=== PATIENT | female | born 1955 | race Caucasian/White ===

== ENCOUNTER 2018-06-15 22:00 | Inpatient (IN) | payer MEDICARE, MEDICAID ==
[~2018-06-15] VITALS: Ht 170.2 cm; Wt 70.5 kg
[~2018-06-15 22:00] MED LIST: ALBU8.5H8 IH; BACL10TA2 PO; CELE-85 PO; CLON0.1T20 PO; ESOM40CA PO; ROPI0.5T2 PO; temazepam 15mg capsule PO PRN
[2018-06-15] MEDS ORDERED: ipratropium 0.5 MG/2.5ML nebule IH ONE (22:05)
[2018-06-15] MEDS ORDERED: albuterol 2.5 MG/3 ML nebule CONTNEB PRN (22:05)
[2018-06-15] MEDS ORDERED: methylPREDNISolone sod succ 125mg/2ml vial IV ONE (22:05)
[2018-06-15] MEDS ORDERED: albuterol 2.5 MG/3 ML nebule ONE (22:07)
[2018-06-15 22:50] LABS: BASOPHILS % (AUTO) 0.3 % (0-1); EOSINOPHILS # (AUTO) 0.4 X10'3 (0-0.9); EOSINOPHILS % (AUTO) 3.6 % (0-6); HEMATOCRIT 46.7 % (35.0-45.0); HEMOGLOBIN 15.8 g/dl (12.0-16.0); LYMPHOCYTES # (AUTO) 2.8 X10'3 (1.1-4.8); LYMPHOCYTES % (AUTO) 24.8 % (21-51); MEAN CORPUSCULAR HEMOGLOBIN 29.2 PG (27.0-31.0); MEAN CORPUSCULAR HGB CONC 33.7 % (33.0-36.5); MEAN CORPUSCULAR VOLUME 86.6 FL (78-98); MEAN PLATELET VOLUME 9.6 FL (7.4-10.4); MONOCYTES # (AUTO) 0.6 X10'3 (0-0.9); MONOCYTES % (AUTO) 5.3 % (2-12); NEUTROPHILS # (AUTO) 7.4 X10'3 (1.8-7.7); PLATELET COUNT 280 X10'3 (140-440); RED BLOOD COUNT 5.39 X10'6 (4.20-5.60); RED CELL DISTRIBUTION WIDTH 13.8 % (11.5-14.5); WHITE BLOOD COUNT 11.3 X10'3 (4.5-11.0)
[2018-06-15 23:00] LABS: ALANINE AMINOTRANSFERASE 24 U/L (12-78); ALBUMIN 3.6 G/DL (3.4-5.0); ALBUMIN/GLOBULIN RATIO 1.1 (1.1-1.5); ALKALINE PHOSPHATASE 105 IU/L (46-116); ANION GAP 8 (8-16); ASPARTATE AMINO TRANSFERASE 20 U/L (10-37); BILIRUBIN,TOTAL 0.3 MG/DL (0.1-1.0); BLOOD UREA NITROGEN 14 MG/DL (7-18); BUN/CREATININE RATIO 16.7 (6.6-38.0); CALCIUM 9.8 MG/DL (8.5-10.1); CHLORIDE 107 MMOL/L (99-107); CREATININE 0.84 MG/DL (0.40-0.90); GLUCOSE 155 MG/DL (70-104); POTASSIUM 3.9 MMOL/L (3.5-5.1); SODIUM 143 MMOL/L (135-145); TOTAL CARBON DIOXIDE 27.7 MMOL/L (24-32); eGFR 68 ML/MIN
[2018-06-15 23:04] LABS: PARTIAL THROMBOPLASTIN TIME 32 SECONDS (22-32); PROTHROMBIN TIME 10.4 SECONDS (9.0-12.0)
[2018-06-15] MEDS ORDERED: aspirin 81mg tab.chew PO ONE (23:15)
[2018-06-15] MEDS ORDERED: normal saline 1000ml 1,000 ML IV SCH (23:27)
[2018-06-15] MEDS ORDERED: ondansetron/PF 4mg/2ml inj IV PRN (23:30)
[2018-06-15] MEDS ORDERED: mag hydrox/Alum hydrox/simeth 30ml oral suspension PO PRN (23:30)
[2018-06-15] MEDS ORDERED: morphine 2 MG/ML inj. syringe IV PRN ×2 (23:30)
[2018-06-15] MEDS ORDERED: diphenhydrAMINE 25mg capsule PO PRN (23:30)
[2018-06-15] MEDS ORDERED: magnesium hydroxide 30ml (MOM) UD suspension PO PRN (23:30)
[2018-06-15] MEDS ORDERED: acetaminophen 325mg tablet PO PRN ×2 (23:30)
[2018-06-15] MEDS ORDERED: bisacodyl 10mg suppository rectal RC PRN (23:30)
[2018-06-15] MEDS ORDERED: metoclopramide 5 mg/ml inj IV PRN (23:30)
[2018-06-15] MEDS ORDERED: diphenhydrAMINE 50 mg/ml inj IV PRN (23:30)
[2018-06-15] MEDS ORDERED: acetaminophen 650mg rectal suppository RC PRN (23:30)
[2018-06-15] MEDS ORDERED: hydrALAZINE 20mg/ml inj. IV PRN (23:35)
[2018-06-15 23:55] LABS: HEMOGLOBIN A1C 5.8 % (4.5-6.2)
[2018-06-15 23:57] LABS: D-DIMER 0.24 MG/L FEU (0-0.50)
[2018-06-16 00:01] LABS: MAGNESIUM 1.9 MG/DL (1.5-2.4); PHOSPHORUS 3.7 MG/DL (2.3-4.5)
[2018-06-16 00:31] LABS: ABG BASE EXCESS -1.4 mmol/L (-2.0-3.0); ABG HCO3 23.7 mmol/L (22.0-26.0); ABG OXYGEN SATURATION 96.4 % (95-98); ABG PCO2 (T) 41.4 mmHg (32.0-45.0); ABG PH (T) 7.376 (7.350-7.450); ABG PO2 (T) 87.6 mmHg (83-108); ALLEN'S TEST Positive; FCOHb 0.6 % (0.5-1.5); FLOW 2 L/min; FMetHb 0.2 % (0.3-1.12); FO2Hb 95.6 % (94-100); RESPIRATORY RATE (OBSERVED) 18 b/min; TOTAL HEMOGLOBIN 15.5 G/dl (12.0-16.0)
[2018-06-16 02:00] LABS: URINE AMPHETAMINE SCREEN POSITIVE (Neg); URINE BARBITUATE SCREEN NEGATIVE (Neg); URINE BENZODIAZEPINES SCREEN NEGATIVE (Neg); URINE CANNABINOID SCREEN NEGATIVE (Neg); URINE COCAINE SCREEN NEGATIVE (Neg); URINE METHADONE SCREEN NEGATIVE (Neg); URINE OPIATE SCREEN NEGATIVE (Neg); URINE PHENCYCLIDINE SCREEN NEGATIVE (Neg)
[2018-06-16] MEDS ORDERED: azithromycin/NS 500mg/250ml 250 ML IV SCH (02:00)
[2018-06-16] MEDS ORDERED: enoxaparin 30mg/0.3ml syringe SUBCUT SCH ×3 (02:00→14:00)
[2018-06-16] MEDS ORDERED: enoxaparin 100mg/ml syringe SQ SCH (02:00)
[2018-06-16] MEDS ORDERED: enoxaparin 40mg/0.4ml syringe SQ SCH (02:00)
[2018-06-16 02:02] LABS: CLARITY,URINE CLEAR (Clear); COLOR,URINE YELLOW (Yellow); GLUCOSE, URINE 250 mg/dl (Neg); KETONES,URINE NEGATIVE (Neg); LEUKOCYTE ESTERASE ,URINE NEGATIVE (Neg); NITRITES, URINE NEGATIVE (Neg); OCCULT BLOOD,URINE TRACE-INTACT (Neg); PH,URINE 5.5 (4.8-8.0); PROTEIN,URINE NEGATIVE (Neg); UROBILINOGEN,URINE 0.2 E.U/dL (0.2-1.0)
[2018-06-16 02:07] LABS: UA COLLECTION TYPE CLN CATCH MIDSTREAM
[2018-06-16 02:11] LABS: RBC,URINE 0-2 /HPF (0-2); WBC,URINE 0-4 /HPF (0-4)
[2018-06-16 02:12] LABS: BACTERIA,URINE FEW /HPF (Neg); CAL OXALATE CRYSTALS 4+ /HPF (NEGATIVE); MUCUS STRANDS FEW /LPF (Neg); SQUAMOUS EPITHELIAL CELL,UR MODERATE /LPF (FEW)
[2018-06-16] MEDS: nicotine 21mg patch - 24 hr TD SCH ×2 (02:33→07:35)
[2018-06-16] MEDS: CefTRIAXone/D5W-Rocephin 1gm 50 ML IV SCH ×3 (02:34→23:28)
[2018-06-16] MEDS: HYDROcodone/acetaminophen 5mg/325mg tablet PO PRN ×2 (03:01→14:20)
[2018-06-16] MEDS ORDERED: albuterol 2.5 MG/3 ML nebule NEB PRN (03:35)
[2018-06-16] MEDS ORDERED: NO HOME MEDS (03:50)
[2018-06-16 03:53] VITALS: BP 141/87
[2018-06-16 06:00] VITALS: BP 168/88
[2018-06-16 06:34] LABS: BASOPHILS % (AUTO) 0.3 % (0-1); EOSINOPHILS # (AUTO) 0.1 X10'3 (0-0.9); HEMATOCRIT 42.3 % (35.0-45.0); HEMOGLOBIN 14.1 g/dl (12.0-16.0); LYMPHOCYTES # (AUTO) 0.7 X10'3 (1.1-4.8); LYMPHOCYTES % (AUTO) 9.8 % (21-51); MEAN CORPUSCULAR HEMOGLOBIN 29.4 PG (27.0-31.0); MEAN CORPUSCULAR HGB CONC 33.4 % (33.0-36.5); MEAN CORPUSCULAR VOLUME 87.8 FL (78-98); MEAN PLATELET VOLUME 10.1 FL (7.4-10.4); MONOCYTES % (AUTO) 0.5 % (2-12); NEUTROPHILS # (AUTO) 6.6 X10'3 (1.8-7.7); NEUTROPHILS % (AUTO) 88.4 % (42-75); PLATELET COUNT 229 X10'3 (140-440); RED BLOOD COUNT 4.82 X10'6 (4.20-5.60); RED CELL DISTRIBUTION WIDTH 13.5 % (11.5-14.5); WHITE BLOOD COUNT 7.4 X10'3 (4.5-11.0)
[2018-06-16 06:41] LABS: ALANINE AMINOTRANSFERASE 18 U/L (12-78); ALBUMIN 3.1 G/DL (3.4-5.0); ALBUMIN/GLOBULIN RATIO 0.9 (1.1-1.5); ALKALINE PHOSPHATASE 97 IU/L (46-116); ANION GAP 13 (8-16); ASPARTATE AMINO TRANSFERASE 20 U/L (10-37); BILIRUBIN,TOTAL 0.2 MG/DL (0.1-1.0); BLOOD UREA NITROGEN 12 MG/DL (7-18); BUN/CREATININE RATIO 14.1 (6.6-38.0); CALCIUM 8.9 MG/DL (8.5-10.1); CHLORIDE 105 MMOL/L (99-107); CREATININE 0.85 MG/DL (0.40-0.90); GLUCOSE 282 MG/DL (70-104); POTASSIUM 3.3 MMOL/L (3.5-5.1); SODIUM 138 MMOL/L (135-145); TOTAL CARBON DIOXIDE 19.7 MMOL/L (24-32); TOTAL PROTEIN 6.4 G/DL (6.4-8.2); eGFR 67 ML/MIN
[2018-06-16 06:44] LABS: CHOL/HDL RATIO 2.4 (0.00-4.99); CHOLESTEROL 138 MG/DL (0-200); HDL CHOLESTEROL 58 MG/DL (35-60); LDL CHOLESTEROL 73 MG/DL (50-100); TRIGLYCERIDES 37 MG/DL (20-135)
[2018-06-16] MEDS: atorvastatin 20mg tablet PO SCH (07:31)
[2018-06-16] MEDS: lisinopril 10 MG tablet PO SCH (07:35)
[2018-06-16] MEDS: pantoprazole 40mg Tablet.DR PO SCH (07:36)
[2018-06-16] MEDS: docusate sod 100mg capsule PO SCH ×2 (07:36→19:55)
[2018-06-16] MEDS ORDERED: nitroGLYCERIN 0.4mg/hour patch TD SCH (08:00)
[2018-06-16] MEDS ORDERED: aspirin 81mg tab.chew PO SCH (08:00)
[2018-06-16] MEDS ORDERED: metoprolol tartrate 25mg tablet PO SCH (08:00)
[2018-06-16] MEDS ORDERED: methylPREDNISolone sod succ 125mg/2ml vial IV SCH (08:00)
[2018-06-16 11:00] VITALS: BP 127/79
[2018-06-16] MEDS ORDERED: potassium cl 20mEq in 1/2 NS 1,000 ML IV SCH (11:30)
[2018-06-16] MEDS ORDERED: pneumococcal 23-VAL P-sac vacc 25 mcg/0.5ml vial IMVAC ONE (12:00)
[2018-06-16] MEDS ORDERED: potassium Cl 20 mEq SR tablet PO STA (14:01)
[2018-06-16] MEDS: ipratropium/albuterol 3ml nebule NEB SCH ×3 (14:21→23:08)
[2018-06-16 15:00] VITALS: BP 128/67
[2018-06-16] MEDS: methylPREDNISolone sod succ 125mg/2ml vial IV SCH ×2 (17:15→23:28)
[2018-06-16 18:00] VITALS: BP 116/65
[2018-06-16] MEDS: lactobacillus rhamnosus 10,000 MMU CELLS/CAPSULE PO SCH (19:05)
[2018-06-16] MEDS: metoprolol tartrate 25mg tablet PO SCH (19:11)
[2018-06-16] MEDS ORDERED: famotidine 20mg tablet PO SCH (21:00)
[2018-06-16 22:00] VITALS: BP 119/66
[2018-06-17 02:00] VITALS: BP 131/80
[2018-06-17] MEDS: ipratropium/albuterol 3ml nebule NEB SCH ×3 (03:27→11:51)
[2018-06-17 06:00] VITALS: BP 131/77
[2018-06-17 06:43] LABS: ALANINE AMINOTRANSFERASE 21 U/L (12-78); ALBUMIN 3.1 G/DL (3.4-5.0); ALKALINE PHOSPHATASE 73 IU/L (46-116); ANION GAP 9 (8-16); ASPARTATE AMINO TRANSFERASE 18 U/L (10-37); BILIRUBIN,TOTAL 0.2 MG/DL (0.1-1.0); BLOOD UREA NITROGEN 24 MG/DL (7-18); CALCIUM 9.5 MG/DL (8.5-10.1); CHLORIDE 107 MMOL/L (99-107); GLUCOSE 146 MG/DL (70-104); POTASSIUM 4.7 MMOL/L (3.5-5.1); SODIUM 140 MMOL/L (135-145); TOTAL CARBON DIOXIDE 23.8 MMOL/L (24-32); TOTAL PROTEIN 6.3 G/DL (6.4-8.2); eGFR 72 ML/MIN
[2018-06-17] MEDS: pantoprazole 40mg Tablet.DR PO SCH (07:30)
[2018-06-17] MEDS: methylPREDNISolone sod succ 125mg/2ml vial IV SCH (08:00)
[2018-06-17] MEDS ORDERED: enoxaparin 40mg/0.4ml syringe SQ SCH (08:00)
[2018-06-17] MEDS ORDERED: nicotine 14mg patch - 24hr TD SCH (08:00)
[2018-06-17] MEDS: metoprolol tartrate 25mg tablet PO SCH (09:50)
[2018-06-17] MEDS: atorvastatin 20mg tablet PO SCH (09:52)
[2018-06-17] MEDS: lisinopril 10 MG tablet PO SCH (09:52)
[2018-06-17] MEDS: docusate sod 100mg capsule PO SCH (09:52)
[2018-06-17] MEDS: lactobacillus rhamnosus 10,000 MMU CELLS/CAPSULE PO SCH (09:53)
[2018-06-17] MEDS: HYDROcodone/acetaminophen 5mg/325mg tablet PO PRN (09:59)
[2018-06-17 11:00] VITALS: BP 129/73
[2018-06-17] MEDS ORDERED: CEPH500C5 PO (11:40)
[2018-06-17] MEDS ORDERED: PRED10TA23 PO (11:40)
[2018-06-17] MEDS ORDERED: LISI10TA4 PO (11:40)
[2018-06-17] MEDS ORDERED: METO50TA16 PO (11:40)
[2018-06-17] MEDS: CefTRIAXone/D5W-Rocephin 1gm 50 ML IV SCH ×2 (12:00)
[2018-06-17 14:00] VITALS: BP 105/47
== END 2018-06-17 14:45 | disposition home or self-care (01) | DRG 280 ==
LOC: ER 22:00 → ED HOLD 23:27 → MERGE 23:27 → EDBEDREQ 06-16 03:08 → PCU 3S 06-16 04:12
PROVIDERS: ADMIT Family Medicine; ATTEND Internal Medicine
PROC: 3E0234Z Introduction of Serum, Toxoid and Vaccine into Muscle, Percutaneous Approach (ICD-10-PCS; principal; 2018-06-16)
DX: I21.A1 Myocardial infarction type 2 (principal); J96.91 Respiratory failure, unspecified with hypoxia; I16.1 Hypertensive emergency; J44.1 Chronic obstructive pulmonary disease with (acute) exacerbation; J44.0 Chronic obstructive pulmonary disease with (acute) lower respiratory infection; F15.10 Other stimulant abuse, uncomplicated; F17.210 Nicotine dependence, cigarettes, uncomplicated; I10 Essential (primary) hypertension; J20.9 Acute bronchitis, unspecified; K21.9 Gastro-esophageal reflux disease without esophagitis; F32.9 Major depressive disorder, single episode, unspecified; F41.9 Anxiety disorder, unspecified; Z90.710 Acquired absence of both cervix and uterus; Z23 Encounter for immunization; Z71.6 Tobacco abuse counseling; Z71.51 Drug abuse counseling and surveillance of drug abuser; Z79.899 Other long term (current) drug therapy
CPT/HCPCS: 36415; 36600; 71045; 80053; 80061; 80305; 81001; 82803; 83036; 83735; 83880; 84100; 84443; 84484; 85018; 85025; 85379; 85610; 85730; 87070; 90732; 93005; 93306; 94640; 94667; 94760; 96374; 99285; G0378; J0456; J0696; J1650; J2270; J2405; J2930; Q2037

== ENCOUNTER 2020-11-17 20:07 | Emergency (ER) | payer MEDICARE, MEDICAID ==
[~2020-11-17] VITALS: Ht 170.2 cm; Wt 70.5 kg
[~2020-11-17 20:07] MED LIST changes: -CLON0.1T20 PO; +LISI10TA27 PO; -ROPI0.5T2 PO; +ROPI0.5T4 PO; -temazepam 15mg capsule PO PRN
[2020-11-17 21:37] VITALS: BP 147/101
--- NOTE | 2020-11-17 21:41 | NUR ---
PT C/O DIFFICULTY BREATHING TO REGISTRATION. PT TAKEN INTO TRIAGE ROOM AND VS RECHECKED, SENT TO BED 19 FOR AN EKG. SPOKE WITH DR ROSE ABOUT PT, WILL ORDER ACS PROTOCOL
[2020-11-17 22:19] LABS: BASOPHILS % (AUTO) 0.5 % (0-1); EOSINOPHILS # (AUTO) 0.4 X10'3 (0-0.9); EOSINOPHILS % (AUTO) 4.3 % (0-6); HEMATOCRIT 45.7 % (35.0-45.0); HEMOGLOBIN 15.2 g/dl (12.0-16.0); LYMPHOCYTES # (AUTO) 3.3 X10'3 (1.1-4.8); LYMPHOCYTES % (AUTO) 34.1 % (21-51); MEAN CORPUSCULAR HEMOGLOBIN 29.3 PG (27.0-31.0); MEAN CORPUSCULAR HGB CONC 33.2 g/dL (33.0-36.5); MEAN CORPUSCULAR VOLUME 88.3 FL (78-98); MEAN PLATELET VOLUME 8.9 FL (7.4-10.4); MONOCYTES # (AUTO) 0.7 X10'3 (0-0.9); NEUTROPHILS # (AUTO) 5.2 X10'3 (1.8-7.7); NEUTROPHILS % (AUTO) 54.1 % (42-75); PLATELET COUNT 271 X10'3 (140-440); RED BLOOD COUNT 5.17 X10'6 (4.20-5.60); RED CELL DISTRIBUTION WIDTH 13.7 % (11.5-14.5); WHITE BLOOD COUNT 9.6 X10'3 (4.5-11.0)
[2020-11-17 22:53] LABS: ALANINE AMINOTRANSFERASE 26 U/L (12-78); ALBUMIN 3.7 G/DL (3.4-5.0); ALBUMIN/GLOBULIN RATIO 1.2 (1.1-1.5); ALKALINE PHOSPHATASE 92 IU/L (46-116); ANION GAP 11 (8-16); ASPARTATE AMINO TRANSFERASE 19 U/L (10-37); BILIRUBIN,TOTAL 0.3 MG/DL (0.1-1.0); BLOOD UREA NITROGEN 20 MG/DL (7-18); BUN/CREATININE RATIO 20.2 (6.6-38.0); CALCIUM 9.1 MG/DL (8.5-10.1); CHLORIDE 104 MMOL/L (99-107); CREATININE 0.99 MG/DL (0.40-0.90); GLUCOSE 114 MG/DL (70-104); SODIUM 144 MMOL/L (135-145); TOTAL CARBON DIOXIDE 29.2 MMOL/L (24-32); TOTAL PROTEIN 6.8 G/DL (6.4-8.2); eGFR 56 ML/MIN
== END 2020-11-17 23:27 | disposition left against medical advice (07) ==
LOC: ER 20:07
DX: R07.81 Pleurodynia (principal); Z53.21 Procedure and treatment not carried out due to patient leaving prior to being seen by health care provider
CPT/HCPCS: 36415; 71046; 80053; 83880; 84484; 85025; 93005

== ENCOUNTER 2021-05-14 14:35 | Emergency (ER) | payer MEDICARE, MEDICAID ==
[~2021-05-14] VITALS: Ht 170.2 cm; Wt 68.2 kg
[~2021-05-14 14:35] MED LIST changes: +ALBU8.5H17 IH; -ALBU8.5H8 IH
[2021-05-14 14:52] VITALS: BP 150/92
[2021-05-14] MEDS ORDERED: IBUP-1984 PO (16:55)
[2021-05-14] MEDS ORDERED: CYCL-1 PO (16:55)
== END 2021-05-14 17:03 | disposition home or self-care (01) ==
LOC: ER 14:36
DX: M54.6 Pain in thoracic spine (principal); M54.50 Low back pain, unspecified; Z72.89 Other problems related to lifestyle; Z79.899 Other long term (current) drug therapy; W19.XXXA Unspecified fall, initial encounter; Y93.89 Activity, other specified; Y92.89 Other specified places as the place of occurrence of the external cause; Y99.8 Other external cause status
CPT/HCPCS: 71046; 72100; 99284

== ENCOUNTER 2021-07-18 20:46 | Inpatient (IN) | payer MEDICARE, MEDICAID ==
[~2021-07-18] VITALS: Ht 170.2 cm; Wt 71.8 kg
[~2021-07-18 20:46] MED LIST changes: +CYCL-1 PO
[2021-07-18] MEDS ORDERED: dexamethasone sod phosphate 10mg/ml inj IV STA (20:58)
[2021-07-18] MEDS ORDERED: LORazepam 2 mg/ml vial IV ONE (21:00)
[2021-07-18] MEDS ORDERED: ipratropium/albuterol 3ml nebule NEB ONE (21:00)
[2021-07-18 21:24] LABS: BASOPHILS % (AUTO) 0.4 % (0-1); EOSINOPHILS # (AUTO) 0.2 X10'3 (0-0.9); EOSINOPHILS % (AUTO) 1.7 % (0-6); HEMATOCRIT 44.4 % (35.0-45.0); HEMOGLOBIN 15.2 g/dl (12.0-16.0); LYMPHOCYTES # (AUTO) 3.3 X10'3 (1.1-4.8); LYMPHOCYTES % (AUTO) 29.4 % (21-51); MEAN CORPUSCULAR HEMOGLOBIN 29.9 PG (27.0-31.0); MEAN CORPUSCULAR HGB CONC 34.3 g/dL (33.0-36.5); MEAN CORPUSCULAR VOLUME 87.4 FL (78-98); MEAN PLATELET VOLUME 9.2 FL (7.4-10.4); MONOCYTES # (AUTO) 1.1 X10'3 (0-0.9); MONOCYTES % (AUTO) 9.8 % (2-12); NEUTROPHILS # (AUTO) 6.5 X10'3 (1.8-7.7); NEUTROPHILS % (AUTO) 58.7 % (42-75); PLATELET COUNT 269 X10'3 (140-440); RED BLOOD COUNT 5.09 X10'6 (4.20-5.60); RED CELL DISTRIBUTION WIDTH 14.1 % (11.5-14.5); WHITE BLOOD COUNT 11.1 X10'3 (4.5-11.0)
[2021-07-18 21:31] LABS: D-DIMER 0.65 MG/L FEU (0-0.50); PARTIAL THROMBOPLASTIN TIME 34 SECONDS (22-32)
[2021-07-18 21:32] LABS: ABG BASE EXCESS -0.7 mmol/L (-2.0-2.0); ABG HCO3 24.3 mmol/L (22.0-26.0); ABG OXYGEN SATURATION 94.6 % (94-97); ABG PCO2 (T) 41.7 mmHg (32.0-45.0); ABG PO2 (T) 74.8 mmHg (75.0-100.0); FCOHb 1.6 % (0.0-3.9); FMetHb 0.1 % (0.0-1.5); PATIENT TEMPERATURE 37.2
[2021-07-18 21:33] LABS: ALANINE AMINOTRANSFERASE 25 U/L (12-78); ALBUMIN 3.6 G/DL (3.4-5.0); ALKALINE PHOSPHATASE 99 IU/L (46-116); ANION GAP 15 (8-16); ASPARTATE AMINO TRANSFERASE 21 U/L (10-37); BILIRUBIN,TOTAL 0.4 MG/DL (0.1-1.0); BLOOD UREA NITROGEN 16 MG/DL (7-18); BUN/CREATININE RATIO 14.7 (6.6-38.0); CALCIUM 8.9 MG/DL (8.5-10.1); CHLORIDE 103 MMOL/L (99-107); CREATININE 1.09 MG/DL (0.40-0.90); GLUCOSE 139 MG/DL (70-104); POTASSIUM 3.2 MMOL/L (3.5-5.1); SODIUM 142 MMOL/L (135-145); TOTAL CARBON DIOXIDE 23.8 MMOL/L (24-32); TOTAL PROTEIN 7.3 G/DL (6.4-8.2); eGFR 50 ML/MIN
[2021-07-18] MEDS ORDERED: CefTRIAXone 2gm/D5W 50ml BAG 50 ML IV ONE (21:40)
[2021-07-18] MEDS ORDERED: normal saline 1000ML IV soln IV ONE (21:55)
[2021-07-18] MEDS ORDERED: iohexol 350MG/ML 100ml bottle IV ONE (22:25)
[2021-07-19] MEDS ORDERED: ondansetron/PF 4mg/2ml inj IV PRN (00:10)
[2021-07-19] MEDS ORDERED: bisacodyl 10mg suppository rectal RC PRN (00:10)
[2021-07-19] MEDS ORDERED: acetaminophen 325mg tablet PO PRN ×2 (00:10)
[2021-07-19] MEDS ORDERED: magnesium Cl slow-release 64mg tablet PO PRN (00:10)
[2021-07-19] MEDS ORDERED: magnesium hydroxide 30ml (MOM) UD suspension PO PRN (00:10)
[2021-07-19] MEDS ORDERED: morphine 2 MG/ML inj. syringe IV PRN (00:10)
[2021-07-19] MEDS ORDERED: HYDROcodone/acetaminophen 5mg/325mg tablet PO PRN (00:10)
[2021-07-19] MEDS ORDERED: diphenhydrAMINE 50 mg/ml inj IV PRN (00:10)
[2021-07-19] MEDS ORDERED: magnesium 4gm in 100ml NS 100 ML IV PRN (00:10)
[2021-07-19] MEDS ORDERED: ondansetron 4mg rapidly disintigrating tab PO PRN (00:10)
[2021-07-19] MEDS ORDERED: normal saline 1000ml 1,000 ML IV SCH (00:10)
[2021-07-19] MEDS ORDERED: diphenhydrAMINE 25mg capsule PO PRN (00:10)
[2021-07-19] MEDS ORDERED: potassium Cl 20 mEq SR tablet PO PRN (00:10)
[2021-07-19] MEDS ORDERED: magnesium 2GM in 50ml NS 50 ML IV PRN (00:10)
[2021-07-19] MEDS ORDERED: mag hydrox/Alum hydrox/simeth 30ml oral suspension PO PRN (00:10)
[2021-07-19] MEDS ORDERED: ipratropium/albuterol 3ml nebule NEB PRN ×2 (00:20→13:50)
[2021-07-19] MEDS: temazepam 15mg capsule PO PRN ×2 (00:54→22:42)
--- NOTE | 2021-07-19 01:07 | NUR ---
SPOKE TO DR SOLIS CONCERNING PT'S TROPONIN LEVELS. NO NEW ORDERS AT PRESENT. PT HAS NO COMPLAINTS.
[2021-07-19 01:33] LABS: CREATINE KINASE 91 U/L (26-192); HEMOGLOBIN A1C 5.7 % (4.5-6.2); LIPASE 84 U/L (73-393); MAGNESIUM 1.8 MG/DL (1.5-2.4)
--- NOTE | 2021-07-19 02:12 | NUR ---
PT RIPPED HER IV OUT, TOOK HER NC OUT, AND UNHOOKED HERSELF FROM MONITOR TO WALK TO THE DOOR OF HER ROOM AND YELL AT STAFF THAT SHE WOULD LEAVE IF SHE DIDN'T GET A ROOM UPSTAIRS. SHE ALSO INFORMED STAFF THAT SHE "SHIT" ON HER BED. PT WAS WALKED BACK TO [facility]. I UPDATED HER ON HER STATUS. SHE WAS INFORMED THAT IT WAS WITHIN HER RIGHT TO LEAVE BUT THAT SHE WOULD HAVE TO SIGN OUT AMA. PT THEN DECIDED TO WAIT AND CONTINUE TO RECIEVE MEDICAL TREATMENT. TECH HELPED CLEAN PT, CHANGE HER INTO A CLEAN GOWN, AND CHANGE BED SHEETS.
[2021-07-19] MEDS: potassium Cl 20 mEq SR tablet PO PRN ×2 (02:35→04:00)
--- NOTE | 2021-07-19 06:23 | NUR ---
CALLED DR SOLIS CONCERNING PT'S NEW TROPONIN RESULTS. HE IS ALSO AWARE OF PT'S ANXIETY. HE GAVE A TELEPHONE ORDER FOR 0.5 MG ATIVAN. NO OTHER ORDERS RECIEVED. ORDERS REPEATED FOR ACCURACY.
[2021-07-19] MEDS ORDERED: LORazepam 2 mg/ml vial IM ONE (06:30)
--- NOTE | 2021-07-19 07:30 | NUR ---
several attempts for iv access with success. pt sleeping
[2021-07-19] MEDS: K and/or MAG REPLACEMENT MC SCH ×2 (08:00→19:31)
[2021-07-19] MEDS ORDERED: azithromycin/NS 500mg/250ml 250 ML IV SCH ×2 (08:00)
[2021-07-19] MEDS ORDERED: heparin, porcine 5000 units/ml vial SQ SCH (08:00)
[2021-07-19] MEDS ORDERED: methylPREDNISolone sod succ/PF 40mg inj. IV SCH (08:00)
[2021-07-19] MEDS ORDERED: aspirin 81mg, enteric-coated 1 TAB TABLET.DR PO SCH (08:00)
--- NOTE | 2021-07-19 08:00 | NUR ---
pt to bedside commode with little assist
[2021-07-19] MEDS: atorvastatin 20mg tablet PO SCH (08:14)
[2021-07-19] MEDS: docusate sod 100mg capsule PO SCH ×2 (08:14→19:31)
--- NOTE | 2021-07-19 09:13 | NUR ---
pt given cup of ice chips
[2021-07-19 10:50] LABS: POTASSIUM 4.1 MMOL/L (3.5-5.1)
--- NOTE | 2021-07-19 11:06 | NUR ---
FAMILY AND PT UPDATE WITH PLAN OF CARE. PT STATED SHE DOES NOT WANT TO STAY BUT DUE TO INCREASED SOB FAMILY DOES NOT WANT TO TAKE HER HOME AT THIS TIME. UPDATED THAT WE ARE WAITING A BED IN THE HOSPITAL.
[2021-07-19] MEDS ORDERED: FLUT1BLS4 INH (11:08)
--- NOTE | 2021-07-19 12:03 | NUR ---
hospialist aware pt in very anxious and would like to leave.
[2021-07-19] MEDS ORDERED: heparin 25,000 UNIT/250ml bag 250 ML IV SCH (13:50)
[2021-07-19] MEDS ORDERED: heparin 10,000 units/1 ML INJ IV ONE ×2 (13:50→14:10)
[2021-07-19] MEDS ORDERED: heparin 10,000 units/1 ML INJ IV PRN (13:50)
[2021-07-19] MEDS ORDERED: benzonatate 100mg capsule PO ONE (14:15)
[2021-07-19] MEDS: LORazepam 2 mg/ml vial IV PRN ×4 (14:26→23:36)
[2021-07-19 14:53] LABS: PARTIAL THROMBOPLASTIN TIME 34 SECONDS (22-32)
[2021-07-19] MEDS: methylPREDNISolone sod succ/PF 40mg inj. IV SCH ×2 (14:54→19:20)
--- NOTE | 2021-07-19 16:20 | NUR ---
Received report from ED RNRudi
[2021-07-19] MEDS ORDERED: aminophylline 250mg/10ml inj. IV PRN (16:45)
[2021-07-19] MEDS ORDERED: regadenoson 0.4mg/5ml syringe IV PRN (16:45)
[2021-07-19] MEDS ORDERED: metoprolol tartrate 1mg/ml inj IV PRN (16:45)
[2021-07-19] MEDS ORDERED: nitroGLYCERIN 0.4mg SUBLingual tab SL PRN (16:45)
[2021-07-19] MEDS: ipratropium/albuterol 3ml nebule NEB SCH ×3 (17:05→23:43)
[2021-07-19 17:21] VITALS: BP 140/93
[2021-07-19] MEDS: LORazepam 1 MG tablet PO PRN ×2 (17:59→22:42)
[2021-07-19 18:00] VITALS: BP 157/102
--- NOTE | 2021-07-19 18:00 | NUR ---
Problems reprioritized. Patient report given, questions answered & plan of care reviewed with RIVERA Francisco.
--- NOTE | 2021-07-19 18:00 | NUR ---
Patient in room MED 311. I have received report from MARY ANN STAFFORD and had the opportunity to ask questions and assume patient care.
[2021-07-19] MEDS: lactobacillus rhamnosus 10,000 MMU CELLS/CAPSULE PO SCH (19:31)
[2021-07-19] MEDS: metoprolol tartrate 12.5mg (1/2 tablet) PO SCH (19:31)
--- NOTE | 2021-07-19 20:00 | NUR ---
PATIENT CONTINUES TO BE COMBATIVE DESPITE MULTIPLE DOSES OF ATIVAN IV. IV INFILTRATED, HEPARIN GTT STOPPED. David stafford AND i ATTEMPTED MULTIPLE IV'S WITHOUT SUCCESS. AWAITING JOHNNY PAYTON RN TO ATTEMPT IV ACCESS. HEPARIN GTT ON HOLD. WILL RESUME WITH IV ACCESS. ANTWAN STAFFORD Addendum: 07/19/21 at 2121 by Maryam Aquino RN MD DESIR
[2021-07-19 22:00] VITALS: BP 138/86
--- NOTE | 2021-07-19 22:33 | NUR ---
SWIMMER UNABLE TO OBTAIN IV ACCESS, MD SOLIS CALLED; WANTS CENTRAL LINE, SWIMMER FITO STAFFORD SPOKE WITH MD SOLIS TO CLARIFY RESOURCE AVAILABILITY; MD SOLIS TO CALL ER MD FOR POSSIBLE CENTRAL LINE PLACEMENT. AWAITING NEW ORDERS FROM MD SOLIS. CORTNEY STAFFORD
[2021-07-19] MEDS ORDERED: CefTRIAXone/D5W-Rocephin 1gm 50 ML IV SCH (23:00)
[2021-07-19 23:41] LABS: ABG BASE EXCESS -0.2 mmol/L (-2.0-2.0); ABG HCO3 23.6 mmol/L (22.0-26.0); ABG OXYGEN SATURATION 94.8 % (94-97); ABG PCO2 (T) 35.3 mmHg (32.0-45.0); ABG PO2 (T) 73.6 mmHg (75.0-100.0); ALLEN'S TEST POSITIVE; FCOHb 0.4 % (0.0-3.9); FO2Hb 94.4 % (94-97); PATIENT TEMPERATURE 36.7; TOTAL HEMOGLOBIN 13.9 G/dl (12.0-16.0)
[2021-07-20] MEDS ORDERED: diphenhydrAMINE 50 mg/ml inj IV ONE
[2021-07-20] MEDS ORDERED: OLANZapine **IM** 10 mg inj. IM ONE
--- NOTE | 2021-07-20 | NUR ---
PATIENT PULLED OUT ALL RESTRAINTS, PULLED OUT IJ , PULLED OFF ALL MONITORS. IRMA INFORMED, IRMA CANCELLED ZYPREXA, ORDERED DIAZAPAM INSTEAD; DIAZAPAM ADMINISTERED WITH SECURITY AND TOOL SPECIALIST JEAN AT BEDSIDE. RESTRAINTS REINITIATED, ED CHARGE CYRUS TO COME UP AND REINSERT IV ACCESS; WILL ADMINISTER HEPARIN, BENEDRYL, AND ATIVAN WHEN IV ACCESS RE-ESTABLISHED. CORTNEY STAFFORD
[2021-07-20] MEDS ORDERED: heparin 10,000 units/1 ML INJ IV ONE (00:15)
[2021-07-20 00:30] LABS: BASOPHILS % (AUTO) 0.1 % (0-1); EOSINOPHILS % (AUTO) 0 % (0-6); HEMATOCRIT 38.7 % (35.0-45.0); HEMOGLOBIN 13.2 g/dl (12.0-16.0); LYMPHOCYTES # (AUTO) 1.5 X10'3 (1.1-4.8); LYMPHOCYTES % (AUTO) 12.3 % (21-51); MEAN CORPUSCULAR HEMOGLOBIN 29.7 PG (27.0-31.0); MEAN CORPUSCULAR HGB CONC 34.2 g/dL (33.0-36.5); MEAN CORPUSCULAR VOLUME 86.6 FL (78-98); MEAN PLATELET VOLUME 9.4 FL (7.4-10.4); MONOCYTES # (AUTO) 0.6 X10'3 (0-0.9); MONOCYTES % (AUTO) 4.8 % (2-12); NEUTROPHILS # (AUTO) 10.2 X10'3 (1.8-7.7); NEUTROPHILS % (AUTO) 82.8 % (42-75); PLATELET COUNT 251 X10'3 (140-440); RED BLOOD COUNT 4.46 X10'6 (4.20-5.60); WHITE BLOOD COUNT 12.3 X10'3 (4.5-11.0)
[2021-07-20] MEDS ORDERED: diazepam inj 5 MG/ML inj. IM ONE (00:40)
[2021-07-20 00:48] LABS: D-DIMER 0.33 MG/L FEU (0-0.50)
[2021-07-20 00:48] LABS: ALANINE AMINOTRANSFERASE 20 U/L (12-78); ALBUMIN/GLOBULIN RATIO 0.9 (1.1-1.5); ALKALINE PHOSPHATASE 72 IU/L (46-116); ANION GAP 9 (8-16); ASPARTATE AMINO TRANSFERASE 27 U/L (10-37); BILIRUBIN,TOTAL 0.3 MG/DL (0.1-1.0); BLOOD UREA NITROGEN 24 MG/DL (7-18); BUN/CREATININE RATIO 32.4 (6.6-38.0); CHLORIDE 106 MMOL/L (99-107); CHOL/HDL RATIO 3.3 (0.00-4.99); CHOLESTEROL 143 MG/DL (0-200); CREATININE 0.74 MG/DL (0.40-0.90); GLUCOSE 159 MG/DL (70-104); HDL CHOLESTEROL 43 MG/DL (35-60); LDL CHOLESTEROL 82 MG/DL (50-100); POTASSIUM 3.7 MMOL/L (3.5-5.1); SODIUM 142 MMOL/L (135-145); TOTAL CARBON DIOXIDE 27.1 MMOL/L (24-32); TOTAL PROTEIN 6.3 G/DL (6.4-8.2); TRIGLYCERIDES 90 MG/DL (20-135); eGFR 78 ML/MIN
--- NOTE | 2021-07-20 01:00 | NUR ---
CRITICAL TROP CALLED TO MD SOLIS, [phone].
[2021-07-20 02:00] VITALS: BP 147/82
[2021-07-20] MEDS: LORazepam 2 mg/ml vial IV PRN ×4 (02:01→23:41)
[2021-07-20] MEDS: methylPREDNISolone sod succ/PF 40mg inj. IV SCH (02:22)
--- NOTE | 2021-07-20 02:23 | NUR ---
IV ACCESS OBTAINED, 1000 UNITS HEPARIN DOSE ADMINISTERED, ATIVAN, SOLUMEDROL, BENEDRYL ALL GIVEN. RESTATED HEPARINGGT, NEXT PTT ORDERED IN 6 HRS
[2021-07-20] MEDS ORDERED: haloperidol decanoate***LONG-ACTING*** 100mg/ml **IM only** inj. IM ONE (02:45)
[2021-07-20] MEDS ORDERED: haloperidol lactate 5mg/ml inj IM ONE ×3 (02:55→07:55)
--- NOTE | 2021-07-20 06:10 | NUR ---
Patient in room MED 311. I have received report from RIVERA Francisco and had the opportunity to ask questions and assume patient care.
[2021-07-20 06:30] VITALS: BP 135/84
--- NOTE | 2021-07-20 06:58 | NUR ---
Problems reprioritized. Patient report given, questions answered & plan of care reviewed with MARY ANN RN.
[2021-07-20] MEDS: ipratropium/albuterol 3ml nebule NEB SCH ×5 (07:00→23:00)
[2021-07-20] MEDS ORDERED: diphenhydrAMINE 50 mg/ml inj IV PRN (07:55)
[2021-07-20] MEDS: metoprolol tartrate 12.5mg (1/2 tablet) PO SCH ×2 (08:00→19:41)
[2021-07-20] MEDS: atorvastatin 20mg tablet PO SCH (08:00)
[2021-07-20] MEDS: lactobacillus rhamnosus 10,000 MMU CELLS/CAPSULE PO SCH ×2 (08:00→19:41)
[2021-07-20] MEDS: docusate sod 100mg capsule PO SCH ×2 (08:00→19:41)
[2021-07-20] MEDS: aspirin 81mg, enteric-coated 1 TAB TABLET.DR PO SCH (08:00)
[2021-07-20] MEDS: ziprasidone IM 20mg inj **IM only IM PRN ×3 (08:10→21:56)
[2021-07-20 10:00] VITALS: BP 137/82
[2021-07-20] MEDS: K and/or MAG REPLACEMENT MC SCH ×2 (10:03→19:40)
[2021-07-20] MEDS: haloperidol lactate 5mg/ml inj IM PRN ×5 (10:31→19:38)
[2021-07-20] MEDS ORDERED: levoFLOXACIN 750MG TABLET PO SCH (10:43)
[2021-07-20] MEDS: diphenhydrAMINE 50 mg/ml inj IM PRN ×2 (12:31→18:14)
[2021-07-20 14:00] VITALS: BP 144/93
[2021-07-20] MEDS: LORazepam 2 mg/ml vial IM PRN ×3 (16:23→20:01)
[2021-07-20 18:00] VITALS: BP 143/89
--- NOTE | 2021-07-20 18:50 | NUR ---
Problems reprioritized. Patient report given, questions answered & plan of care reviewed with RIVERA Serra.
[2021-07-20] MEDS: diazepam inj 5 MG/ML inj. IV PRN (21:10)
[2021-07-20 22:00] VITALS: BP 144/80
[2021-07-21 02:00] VITALS: BP 142/82
[2021-07-21 05:55] LABS: BASOPHILS % (AUTO) 0.2 % (0-1); EOSINOPHILS % (AUTO) 0.2 % (0-6); HEMATOCRIT 42.3 % (35.0-45.0); HEMOGLOBIN 14.3 g/dl (12.0-16.0); LYMPHOCYTES # (AUTO) 2.5 X10'3 (1.1-4.8); LYMPHOCYTES % (AUTO) 24.4 % (21-51); MEAN CORPUSCULAR HEMOGLOBIN 29.2 PG (27.0-31.0); MEAN CORPUSCULAR HGB CONC 33.7 g/dL (33.0-36.5); MEAN CORPUSCULAR VOLUME 86.7 FL (78-98); MEAN PLATELET VOLUME 9.1 FL (7.4-10.4); MONOCYTES # (AUTO) 0.8 X10'3 (0-0.9); MONOCYTES % (AUTO) 7.4 % (2-12); NEUTROPHILS % (AUTO) 67.8 % (42-75); PLATELET COUNT 286 X10'3 (140-440); RED BLOOD COUNT 4.89 X10'6 (4.20-5.60); WHITE BLOOD COUNT 10.3 X10'3 (4.5-11.0)
[2021-07-21 06:00] VITALS: BP 147/92
[2021-07-21 06:18] LABS: ALANINE AMINOTRANSFERASE 27 U/L (12-78); ALBUMIN 3.1 G/DL (3.4-5.0); ALBUMIN/GLOBULIN RATIO 0.9 (1.1-1.5); ALKALINE PHOSPHATASE 69 IU/L (46-116); ANION GAP 11 (8-16); ASPARTATE AMINO TRANSFERASE 47 U/L (10-37); BILIRUBIN,TOTAL 0.4 MG/DL (0.1-1.0); BLOOD UREA NITROGEN 28 MG/DL (7-18); BUN/CREATININE RATIO 43.8 (6.6-38.0); CALCIUM 8.8 MG/DL (8.5-10.1); CHLORIDE 109 MMOL/L (99-107); CREATININE 0.64 MG/DL (0.40-0.90); GLUCOSE 111 MG/DL (70-104); POTASSIUM 3.2 MMOL/L (3.5-5.1); SODIUM 145 MMOL/L (135-145); TOTAL CARBON DIOXIDE 25.5 MMOL/L (24-32); TOTAL PROTEIN 6.4 G/DL (6.4-8.2); eGFR > 90 ML/MIN
[2021-07-21] MEDS: LORazepam 2 mg/ml vial IV PRN ×5 (06:34→22:23)
[2021-07-21] MEDS: haloperidol lactate 5mg/ml inj IM PRN ×5 (06:35→23:10)
--- NOTE | 2021-07-21 06:52 | NUR ---
Patient in room MED 311. I have received report from RIVERA Serra and had the opportunity to ask questions and assume patient care.
[2021-07-21] MEDS: ipratropium/albuterol 3ml nebule NEB SCH ×5 (06:59→23:00)
[2021-07-21] MEDS: K and/or MAG REPLACEMENT MC SCH ×2 (07:22→20:00)
--- NOTE | 2021-07-21 07:41 | NUR ---
Pablo consult: Noted Pablo score of 12 though not skin issues documented. Addendum: 07/21/21 at [address] Amended: Links added.
[2021-07-21] MEDS: docusate sod 100mg capsule PO SCH ×2 (08:00→20:00)
[2021-07-21] MEDS: atorvastatin 20mg tablet PO SCH (08:00)
[2021-07-21] MEDS ORDERED: predniSONE 20 mg tablet PO SCH (08:00)
[2021-07-21] MEDS: metoprolol tartrate 12.5mg (1/2 tablet) PO SCH ×2 (08:00→19:35)
[2021-07-21] MEDS: lactobacillus rhamnosus 10,000 MMU CELLS/CAPSULE PO SCH ×2 (08:00→20:00)
[2021-07-21] MEDS: aspirin 81mg, enteric-coated 1 TAB TABLET.DR PO SCH (08:00)
[2021-07-21] MEDS ORDERED: methylPREDNISolone sod succ 125mg/2ml vial IV ONE (10:35)
[2021-07-21 11:00] VITALS: BP 150/83
[2021-07-21] MEDS: levoFLOXACIN-Levaquin 500mg/D5 100 ML IV SCH (11:15)
[2021-07-21] MEDS: diphenhydrAMINE 50 mg/ml inj IM PRN (11:52)
[2021-07-21] MEDS: potassium CL 10mEq/100ml bag 100 ML IV PRN ×2 (12:51→14:31)
[2021-07-21] MEDS ORDERED: methylPREDNISolone sod succ 125mg/2ml vial IV SCH (14:00)
[2021-07-21 15:00] VITALS: BP 166/111
--- NOTE | 2021-07-21 16:47 | NUR ---
Orders for transfer to surgical put in per Dr. Wahl.
--- NOTE | 2021-07-21 16:53 | NUR ---
PAGED PICC RN... PT IN 311 NEEDS AN EXTENDED LINE PER DR. REZA. JAMIR ONEIL
[2021-07-21 18:00] VITALS: BP 156/95
--- NOTE | 2021-07-21 18:42 | NUR ---
Problems reprioritized. Patient report given, questions answered & plan of care reviewed with RIVERA Multani.
[2021-07-21] MEDS: methylPREDNISolone sod succ 125mg/2ml vial IV SCH (19:54)
[2021-07-21] MEDS: diazepam inj 5 MG/ML inj. IV PRN (21:05)
[2021-07-21 22:00] VITALS: BP 165/100
[2021-07-22] MEDS: methylPREDNISolone sod succ 125mg/2ml vial IV SCH ×4 (01:29→20:00)
[2021-07-22 02:00] VITALS: BP 156/78
[2021-07-22 06:17] LABS: BASOPHILS % (AUTO) 0.1 % (0-1); EOSINOPHILS % (AUTO) 0 % (0-6); HEMATOCRIT 43.7 % (35.0-45.0); HEMOGLOBIN 14.9 g/dl (12.0-16.0); LYMPHOCYTES # (AUTO) 1.1 X10'3 (1.1-4.8); MEAN CORPUSCULAR HEMOGLOBIN 29.3 PG (27.0-31.0); MEAN CORPUSCULAR HGB CONC 34.1 g/dL (33.0-36.5); MEAN PLATELET VOLUME 9.1 FL (7.4-10.4); MONOCYTES # (AUTO) 0.3 X10'3 (0-0.9); MONOCYTES % (AUTO) 3.1 % (2-12); NEUTROPHILS # (AUTO) 7.4 X10'3 (1.8-7.7); NEUTROPHILS % (AUTO) 83.8 % (42-75); PLATELET COUNT 304 X10'3 (140-440); RED BLOOD COUNT 5.09 X10'6 (4.20-5.60); RED CELL DISTRIBUTION WIDTH 13.9 % (11.5-14.5); WHITE BLOOD COUNT 8.8 X10'3 (4.5-11.0)
[2021-07-22 06:26] LABS: ALANINE AMINOTRANSFERASE 38 U/L (12-78); ALBUMIN/GLOBULIN RATIO 0.9 (1.1-1.5); ALKALINE PHOSPHATASE 72 IU/L (46-116); ANION GAP 10 (8-16); ASPARTATE AMINO TRANSFERASE 59 U/L (10-37); BILIRUBIN,TOTAL 0.5 MG/DL (0.1-1.0); BLOOD UREA NITROGEN 30 MG/DL (7-18); BUN/CREATININE RATIO 41.7 (6.6-38.0); CALCIUM 8.9 MG/DL (8.5-10.1); CHLORIDE 107 MMOL/L (99-107); CREATININE 0.72 MG/DL (0.40-0.90); GLUCOSE 143 MG/DL (70-104); POTASSIUM 4.1 MMOL/L (3.5-5.1); SODIUM 143 MMOL/L (135-145); TOTAL CARBON DIOXIDE 25.9 MMOL/L (24-32); TOTAL PROTEIN 6.4 G/DL (6.4-8.2); eGFR 81 ML/MIN
[2021-07-22] MEDS: ipratropium/albuterol 3ml nebule NEB SCH ×5 (07:00→23:00)
[2021-07-22 07:10] VITALS: BP 148/87
[2021-07-22] MEDS: metoprolol tartrate 12.5mg (1/2 tablet) PO SCH ×2 (08:00→20:00)
[2021-07-22] MEDS: docusate sod 100mg capsule PO SCH ×2 (08:00→20:00)
[2021-07-22] MEDS: atorvastatin 20mg tablet PO SCH (08:00)
[2021-07-22] MEDS: aspirin 81mg, enteric-coated 1 TAB TABLET.DR PO SCH (08:00)
[2021-07-22] MEDS: K and/or MAG REPLACEMENT MC SCH ×2 (08:00→20:00)
[2021-07-22] MEDS: lactobacillus rhamnosus 10,000 MMU CELLS/CAPSULE PO SCH ×2 (08:00→20:00)
[2021-07-22] MEDS: levoFLOXACIN-Levaquin 500mg/D5 100 ML IV SCH (08:25)
--- NOTE | 2021-07-22 08:42 | NUR ---
patient refused PO medications, she was uncooperative and would not open her mouth to take sips of water or put her medications in.
[2021-07-22 11:31] VITALS: BP 162/83
[2021-07-22 15:00] VITALS: BP 148/77
[2021-07-22 18:00] VITALS: BP 164/86
--- NOTE | 2021-07-22 18:26 | NUR ---
Problems reprioritized. Patient report given, questions answered & plan of care reviewed with RIVERA Zacarias.
--- NOTE | 2021-07-22 18:43 | NUR ---
Patient in room MED 311. I have received report from Porcshe STAFFORD and had the opportunity to ask questions and assume patient care.
[2021-07-22 19:16] LABS: CLARITY,URINE SLIGHTLY CLOUDY (Clear); COLOR,URINE YELLOW (Yellow); GLUCOSE, URINE NEGATIVE (Neg); KETONES,URINE NEGATIVE (Neg); LEUKOCYTE ESTERASE ,URINE NEGATIVE (Neg); NITRITES, URINE NEGATIVE (Neg); OCCULT BLOOD,URINE MODERATE (Neg); PROTEIN,URINE NEGATIVE (Neg); UROBILINOGEN,URINE 0.2 E.U/dL (0.2-1.0)
[2021-07-22 19:21] LABS: UA COLLECTION TYPE NON-SPECIFIED
[2021-07-22 19:25] LABS: BACTERIA,URINE 2+ /HPF (Neg); RBC,URINE 20-50 /HPF (0-2)
[2021-07-22 19:26] LABS: MUCUS STRANDS MODERATE /LPF (Neg); SQUAMOUS EPITHELIAL CELL,UR MODERATE /LPF (FEW); TRANSITIONAL EPI CELLS,URINE FEW /HPF; URINE AMPHETAMINE SCREEN NEGATIVE (Neg); URINE BARBITUATE SCREEN NEGATIVE (Neg); URINE BENZODIAZEPINES SCREEN POSITIVE (Neg); URINE CANNABINOID SCREEN NEGATIVE (Neg); URINE COCAINE SCREEN NEGATIVE (Neg); URINE METHADONE SCREEN NEGATIVE (Neg); URINE OPIATE SCREEN POSITIVE (Neg); URINE PHENCYCLIDINE SCREEN NEGATIVE (Neg)
[2021-07-22 22:00] VITALS: BP 138/91
[2021-07-23 02:00] VITALS: BP 132/56
[2021-07-23] MEDS: methylPREDNISolone sod succ 125mg/2ml vial IV SCH ×4 (02:17→20:30)
[2021-07-23 06:00] VITALS: BP 175/87
--- NOTE | 2021-07-23 06:21 | NUR ---
Problems reprioritized. Patient report given, questions answered & plan of care reviewed with Akua STAFFORD.
[2021-07-23 06:26] LABS: BASOPHILS % (AUTO) 0.1 % (0-1); EOSINOPHILS % (AUTO) 0 % (0-6); HEMATOCRIT 44.6 % (35.0-45.0); HEMOGLOBIN 15.1 g/dl (12.0-16.0); LYMPHOCYTES # (AUTO) 1.4 X10'3 (1.1-4.8); LYMPHOCYTES % (AUTO) 10.2 % (21-51); MEAN CORPUSCULAR HEMOGLOBIN 29.3 PG (27.0-31.0); MEAN CORPUSCULAR HGB CONC 33.9 g/dL (33.0-36.5); MEAN CORPUSCULAR VOLUME 86.5 FL (78-98); MEAN PLATELET VOLUME 9.2 FL (7.4-10.4); MONOCYTES # (AUTO) 0.4 X10'3 (0-0.9); NEUTROPHILS # (AUTO) 11.5 X10'3 (1.8-7.7); NEUTROPHILS % (AUTO) 86.7 % (42-75); PLATELET COUNT 335 X10'3 (140-440); RED BLOOD COUNT 5.16 X10'6 (4.20-5.60); RED CELL DISTRIBUTION WIDTH 13.8 % (11.5-14.5); WHITE BLOOD COUNT 13.3 X10'3 (4.5-11.0)
[2021-07-23 06:33] LABS: ALANINE AMINOTRANSFERASE 43 U/L (12-78); ALBUMIN/GLOBULIN RATIO 0.9 (1.1-1.5); ALKALINE PHOSPHATASE 71 IU/L (46-116); ANION GAP 10 (8-16); ASPARTATE AMINO TRANSFERASE 50 U/L (10-37); BILIRUBIN,TOTAL 0.6 MG/DL (0.1-1.0); BLOOD UREA NITROGEN 32 MG/DL (7-18); CALCIUM 8.8 MG/DL (8.5-10.1); CHLORIDE 106 MMOL/L (99-107); CREATININE 0.78 MG/DL (0.40-0.90); GLUCOSE 136 MG/DL (70-104); SODIUM 144 MMOL/L (135-145); TOTAL CARBON DIOXIDE 28.2 MMOL/L (24-32); TOTAL PROTEIN 6.3 G/DL (6.4-8.2); eGFR 74 ML/MIN
[2021-07-23] MEDS: K and/or MAG REPLACEMENT MC SCH ×2 (08:00→20:00)
[2021-07-23] MEDS: levoFLOXACIN-Levaquin 500mg/D5 100 ML IV SCH (08:05)
[2021-07-23] MEDS: atorvastatin 20mg tablet PO SCH (08:06)
[2021-07-23] MEDS: metoprolol tartrate 12.5mg (1/2 tablet) PO SCH ×2 (08:06→20:28)
[2021-07-23] MEDS: docusate sod 100mg capsule PO SCH ×2 (08:06→20:28)
[2021-07-23] MEDS: aspirin 81mg, enteric-coated 1 TAB TABLET.DR PO SCH (08:06)
[2021-07-23] MEDS: ipratropium/albuterol 3ml nebule NEB SCH ×5 (08:21→23:00)
--- NOTE | 2021-07-23 08:43 | NUR ---
Paged PICC RN to see if they could try an IV. I attempted x1 no success.
[2021-07-23] MEDS: lactobacillus rhamnosus 10,000 MMU CELLS/CAPSULE PO SCH ×2 (08:47→20:28)
--- NOTE | 2021-07-23 08:58 | NUR ---
Dr Wahl aware patients IV painful when antibiotic running. Stopped IV Levaquin,. Received orders to change IV Levaquin to PO Levaquin 500 mg daily.
[2021-07-23 10:00] VITALS: BP 175/87
[2021-07-23] MEDS: levoFLOXACIN 500mg tablet PO SCH (10:28)
[2021-07-23 15:00] VITALS: BP 181/85
[2021-07-23] MEDS: LORazepam 2 mg/ml vial IV PRN (17:04)
[2021-07-23 18:00] VITALS: BP 138/75
--- NOTE | 2021-07-23 18:00 | NUR ---
Problems reprioritized. Patient report given, questions answered & plan of care reviewed with Tsering STAFFORD.
[2021-07-23 22:00] VITALS: BP 144/76
[2021-07-24 02:00] VITALS: BP 149/76
[2021-07-24] MEDS: methylPREDNISolone sod succ 125mg/2ml vial IV SCH ×2 (03:09→10:48)
[2021-07-24 05:52] LABS: BASOPHILS % (AUTO) 0.2 % (0-1); EOSINOPHILS % (AUTO) 0 % (0-6); HEMOGLOBIN 14.8 g/dl (12.0-16.0); LYMPHOCYTES # (AUTO) 1.2 X10'3 (1.1-4.8); LYMPHOCYTES % (AUTO) 9.5 % (21-51); MEAN CORPUSCULAR HEMOGLOBIN 28.9 PG (27.0-31.0); MEAN CORPUSCULAR HGB CONC 33.6 g/dL (33.0-36.5); MEAN CORPUSCULAR VOLUME 85.9 FL (78-98); MEAN PLATELET VOLUME 9.3 FL (7.4-10.4); MONOCYTES # (AUTO) 0.5 X10'3 (0-0.9); MONOCYTES % (AUTO) 3.6 % (2-12); NEUTROPHILS # (AUTO) 11.3 X10'3 (1.8-7.7); NEUTROPHILS % (AUTO) 86.7 % (42-75); PLATELET COUNT 363 X10'3 (140-440); RED BLOOD COUNT 5.13 X10'6 (4.20-5.60); RED CELL DISTRIBUTION WIDTH 14.1 % (11.5-14.5); WHITE BLOOD COUNT 13.1 X10'3 (4.5-11.0)
[2021-07-24 06:03] LABS: ALANINE AMINOTRANSFERASE 48 U/L (12-78); ALKALINE PHOSPHATASE 71 IU/L (46-116); ANION GAP 11 (8-16); ASPARTATE AMINO TRANSFERASE 38 U/L (10-37); BILIRUBIN,TOTAL 0.7 MG/DL (0.1-1.0); BLOOD UREA NITROGEN 30 MG/DL (7-18); BUN/CREATININE RATIO 44.8 (6.6-38.0); CALCIUM 8.9 MG/DL (8.5-10.1); CHLORIDE 104 MMOL/L (99-107); CREATININE 0.67 MG/DL (0.40-0.90); GLUCOSE 140 MG/DL (70-104); POTASSIUM 4.2 MMOL/L (3.5-5.1); SODIUM 140 MMOL/L (135-145); TOTAL CARBON DIOXIDE 25.5 MMOL/L (24-32); TOTAL PROTEIN 6.1 G/DL (6.4-8.2); eGFR 88 ML/MIN
--- NOTE | 2021-07-24 06:13 | NUR ---
Problems reprioritized. Patient report given, questions answered & plan of care reviewed with ANTHONY
--- NOTE | 2021-07-24 06:37 | NUR ---
Patient in room MED 311. I have received report from Patti STAFFORD and had the opportunity to ask questions and assume patient care.
[2021-07-24] MEDS: ipratropium/albuterol 3ml nebule NEB SCH ×2 (07:00→11:00)
[2021-07-24] MEDS: K and/or MAG REPLACEMENT MC SCH (08:00)
[2021-07-24 08:10] VITALS: BP 164/89
[2021-07-24 10:43] VITALS: BP 146/94
[2021-07-24] MEDS: aspirin 81mg, enteric-coated 1 TAB TABLET.DR PO SCH (10:44)
[2021-07-24] MEDS: levoFLOXACIN 500mg tablet PO SCH (10:44)
[2021-07-24] MEDS: lactobacillus rhamnosus 10,000 MMU CELLS/CAPSULE PO SCH (10:44)
[2021-07-24] MEDS: docusate sod 100mg capsule PO SCH (10:44)
[2021-07-24] MEDS: atorvastatin 20mg tablet PO SCH (10:44)
[2021-07-24 10:45] VITALS: BP_SYST 146
[2021-07-24] MEDS: metoprolol tartrate 12.5mg (1/2 tablet) PO SCH (10:45)
[2021-07-24] MEDS ORDERED: PRED10TA23 PO (11:41)
[2021-07-24] MEDS ORDERED: LOP12.5T PO (11:41)
[2021-07-24] MEDS ORDERED: LEVO500T90 PO (11:41)
--- NOTE | 2021-07-24 12:57 | NUR ---
Discharge instructions given to patient, patient verbalized understanding of al instructions given to her. Peripheral IV catheter removed, tip intact. I tried to call pharmacist to fill the prescription about 20 minutes ago, the staff told me that pharmacist was at lunch and will be back in 30 minutes. Patient really wanted to go as early as possible so I called back the [facility] pharmacy and was told by the staff that we can go ahead fax the discharge medications ordered to the pharmacy.
--- NOTE | 2021-07-24 14:41 | NUR ---
Crab Steamer found a yellow color necklace inside a small cup with lid in the patient's room after she was discharge. Charge nurse Celestine was aware about this. I called the number of her daughter on the SB[employer], it went directly to a voicemail stating this is not Akua and the voicemail said to call [phone] so I did, it went also to voicemail. Left message to her voicemail to call the hospital regarding the belonging she left.
== END 2021-07-24 13:00 | disposition home or self-care (01) | DRG 871 ==
LOC: ER 20:46 → ED HOLD 07-19 00:15 → EDBEDREQ 07-19 15:15 → MED 3N 07-19 16:39
PROVIDERS: ADMIT Family Medicine; ATTEND Family Medicine
PROC: 5A09357 Assistance with Respiratory Ventilation, Less than 24 Consecutive Hours, Continuous Positive Airway Pressure (ICD-10-PCS; principal; 2021-07-18)
PROC: B32T1ZZ Computerized Tomography (CT Scan) of Left Pulmonary Artery using Low Osmolar Contrast (ICD-10-PCS; 2021-07-18)
PROC: B3201ZZ Computerized Tomography (CT Scan) of Thoracic Aorta using Low Osmolar Contrast (ICD-10-PCS; 2021-07-18)
PROC: B32S1ZZ Computerized Tomography (CT Scan) of Right Pulmonary Artery using Low Osmolar Contrast (ICD-10-PCS; 2021-07-18)
DX: A41.9 Sepsis, unspecified organism (principal); I21.A1 Myocardial infarction type 2; J18.9 Pneumonia, unspecified organism; J96.01 Acute respiratory failure with hypoxia; G92.8 Other toxic encephalopathy; I50.33 Acute on chronic diastolic (congestive) heart failure; J44.1 Chronic obstructive pulmonary disease with (acute) exacerbation; N17.9 Acute kidney failure, unspecified; F19.231 Other psychoactive substance dependence with withdrawal delirium; I13.0 Hypertensive heart and chronic kidney disease with heart failure and stage 1 through stage 4 chronic kidney disease, or unspecified chronic kidney disease; I16.1 Hypertensive emergency; J44.0 Chronic obstructive pulmonary disease with (acute) lower respiratory infection; Z20.822 Contact with and (suspected) exposure to COVID-19; N18.9 Chronic kidney disease, unspecified; E87.6 Hypokalemia; F15.90 Other stimulant use, unspecified, uncomplicated; B19.20 Unspecified viral hepatitis C without hepatic coma; F17.210 Nicotine dependence, cigarettes, uncomplicated; F41.1 Generalized anxiety disorder; G89.4 Chronic pain syndrome; Z90.710 Acquired absence of both cervix and uterus; Z79.899 Other long term (current) drug therapy; Z79.82 Long term (current) use of aspirin; Z71.6 Tobacco abuse counseling; Z71.51 Drug abuse counseling and surveillance of drug abuser; Z78.1 Physical restraint status
CPT/HCPCS: 36415; 36569; 36600; 70450; 71045; 71275; 76937; 80053; 80061; 80305; 81001; 82550; 82803; 83036; 83605; 83690; 83735; 83880; 84100; 84132; 84484; 85018; 85025; 85379; 85610; 85730; 87040; 87081; 87088; 87635; 93005; 93308; 94640; 94660; 94760; 97110; 97161; 97530; 99291; C9803; G0378; J0456; J0696; J1100; J1200; J1630; J1644; J1956; J2060; J2920; J2930; J3360; J3480; J3486; J7030; Q9967

== ENCOUNTER 2022-03-27 05:08 | Emergency (ER) | payer MEDICARE, MEDICAID ==
[~2022-03-27] VITALS: Ht 170.2 cm; Wt 69.1 kg
[~2022-03-27 05:08] MED LIST changes: -BACL10TA2 PO; -CELE-85 PO; -CYCL-1 PO; -ESOM40CA PO; +FLUT1BLS4 INH; +LEVO-65 PO; -LISI10TA27 PO; +LOP12.5T PO; -ROPI0.5T4 PO
[2022-03-27 05:11] VITALS: BP 154/91
== END 2022-03-27 11:44 | disposition left against medical advice (07) ==
LOC: ER 05:09
DX: M54.59 Other low back pain (principal); Z53.21 Procedure and treatment not carried out due to patient leaving prior to being seen by health care provider

== ENCOUNTER 2022-04-20 07:39 | Day surgery (SDC) | payer MEDICARE, MEDICAID ==
[2022-04-16 16:02] LABS: BASOPHILS # (AUTO) 0.1 X10'3 (0-0.2); BASOPHILS % (AUTO) 0.9 % (0-1); EOSINOPHILS # (AUTO) 0.2 X10'3 (0-0.9); EOSINOPHILS % (AUTO) 3.1 % (0-6); LYMPHOCYTES # (AUTO) 2.9 X10'3 (1.1-4.8); LYMPHOCYTES % (AUTO) 44.2 % (21-51); MEAN CORPUSCULAR HEMOGLOBIN 29.3 PG (27.0-31.0); MEAN CORPUSCULAR HGB CONC 33.3 g/dL (33.0-36.5); MEAN CORPUSCULAR VOLUME 88.1 FL (78-98); MEAN PLATELET VOLUME 7.8 FL (7.4-10.4); MONOCYTES # (AUTO) 0.4 X10'3 (0-0.9); NEUTROPHILS % (AUTO) 45.8 % (42-75); PRE OP HEMOGLOBIN 14.3 g/dL (12.0-16.0); PRE OP PLATELET COUNT 324 X10'3 (140-440); RED BLOOD COUNT 4.88 X10'6 (4.20-5.60); RED CELL DISTRIBUTION WIDTH 13.9 % (11.5-14.5)
[2022-04-16 16:17] LABS: ALBUMIN 3.6 G/DL (3.4-5.0); ALBUMIN/GLOBULIN RATIO 1.1 (1.1-1.5); ALKALINE PHOSPHATASE 93 IU/L (46-116); BLOOD UREA NITROGEN 15 MG/DL (7-18); BUN/CREATININE RATIO 17.2 (6.6-38.0); CALCIUM 9.1 MG/DL (8.5-10.1); CHLORIDE 107 MMOL/L (99-107); CREATININE 0.87 MG/DL (0.40-0.90); PRE OP ALT 22 U/L (30-65); PRE OP ANION GAP 11 (8-16); PRE OP AST 22 U/L (10-37); PRE OP BILIRUB, TOTAL 0.2 MG/DL (0.0-1.0); PRE OP GLUCOSE 101 MG/DL (70-104); PRE OP POTASSIUM 4.3 MMOL/L (3.4-5.1); PRE OP SODIUM 145 MMOL/L (135-145); TOTAL CARBON DIOXIDE 27.2 MMOL/L (24-32); TOTAL PROTEIN 6.9 G/DL (6.4-8.2); eGFR 65 ML/MIN
[~2022-04-20] VITALS: Ht 152.4 cm; Wt 68.9 kg
[~2022-04-20 07:39] MED LIST changes: -ALBU8.5H17 IH; -FLUT1BLS4 INH; +HYDR-3972 PO; -LEVO-65 PO; -LOP12.5T PO; +famotidine 20mg tablet PO ONE; +ringers solution, lacted 1,000 ML IV SCH
[2022-04-20] MEDS ORDERED: LIDOcaine 1% 30ml preserv. free vial ONE (07:41)
[2022-04-20 07:45] VITALS: BP 161/95
[2022-04-20] MEDS ORDERED: cefazolin/dext.iso 2gm/100ml 100 ML IV ONE (09:00)
[2022-04-20] MEDS ORDERED: BUPIVAcaine/PF 2.5mg/ml (0.25%) 10ml vial ONE (09:43)
[2022-04-20] MEDS ORDERED: fentaNYL/PF 50MCG/1 ML 2ML syringe ONE (09:57)
[2022-04-20] MEDS ORDERED: MIDAZolam 1 MG/ML 5ML VIAL ONE (09:57)
[2022-04-20] MEDS ORDERED: ketorolac trometh. 30mg/ml inj. ONE (10:00)
[2022-04-20] MEDS ORDERED: meperidine/PF 25mg/ml syringe ONE (10:36)
[2022-04-20] MEDS ORDERED: propofol inj 20 ML IV ONE (11:02)
[2022-04-20 11:07] VITALS: BP 156/100
--- NOTE | 2022-04-20 11:07 | NUR ---
Received from OR via BED, accompanied by Anesthesiologist DR. ALVAREZ and report given by Anesthesiolgist. PATIENT ANSWERING QUESTIONS, SLIGHTLY FORGETFUL. HYPERTENSIVE, HOWEVER WITHIN 20 OF PREOP. RIGHT HAND 20G PIV WITH LR RUNNING AT 100ML/HR. VSS. REQUIRING 2L NC TO MAINTAIN GREATER THAN 92% SATURATIONS. LEFT HAND DRESSING CDI. DENIES PAIN. SLEEPY.
[2022-04-20 11:17] VITALS: BP 161/101
[2022-04-20 11:27] VITALS: BP 172/107
[2022-04-20 11:37] VITALS: BP 152/96
--- NOTE | 2022-04-20 11:37 | NUR ---
PATIENT MEETS DISCHARGE CRITERIA. SHE DENIES PAIN, VS WNL'S. PIV REMOVED. ALL BELONGINGS SENT WITH PATIENT. PATIENT IS WORRIED ABOUT NOT HAVING NORCO FOR PAIN. DURING ASSISTING PATIENT WITH DRESSING A 50MCG FENTNAYL PATCH IS NOTED ON HER LEFT LOWER BACK. INFORMED DR. JIMENES OF PATCH, SINCE IT WAS NOT NOTED ON MED RECONCILIATION. DR. JIMENES STATES SHE DOES NOT NEED A PRESCRIPTION. I EDUCATED PATIENT ABOUT ALTERNATIVES. SHE IS SENT HOME WITH HER DAUGHTER, ANISA.
[2022-04-20] MEDS ORDERED: FENT1PAT10 TP (11:58)
== END 2022-04-20 11:37 | disposition home or self-care (01) ==
LOC: PAS 07:39
PROVIDERS: ATTEND Orthopaedic Surgery Hand Surgery
DX: G56.02 Carpal tunnel syndrome, left upper limb (principal); M65.332 Trigger finger, left middle finger; M65.342 Trigger finger, left ring finger; M18.12 Unilateral primary osteoarthritis of first carpometacarpal joint, left hand; Z79.899 Other long term (current) drug therapy; Z98.890 Other specified postprocedural states; F17.210 Nicotine dependence, cigarettes, uncomplicated; J44.9 Chronic obstructive pulmonary disease, unspecified
CPT/HCPCS: 25447; 26055; 26483; 36415; 64721; 80053; 82948; 85025; 87811; 93005; A6222; J1885; J2175; J2250; J2704; J3010; J3490; J7030; J7120; Z7506; Z7508; Z7512; A4215; A4618; A6449; A7000

== ENCOUNTER 2022-04-24 15:49 | Emergency (ER) | payer MEDICARE, MEDICAID ==
[~2022-04-24] VITALS: Ht 170.2 cm; Wt 69.1 kg
[~2022-04-24 15:49] MED LIST changes: +FENT1PAT10 TP; -famotidine 20mg tablet PO ONE; -ringers solution, lacted 1,000 ML IV SCH
[2022-04-24 17:24] VITALS: BP 157/93
--- NOTE | 2022-04-24 17:59 | NUR ---
Pt given and understands d/c instructions. Ambulatory with a steady gait.
== END 2022-04-24 18:00 | disposition home or self-care (01) ==
LOC: ER 15:49
DX: T81.9XXA Unspecified complication of procedure, initial encounter (principal); S40.022D Contusion of left upper arm, subsequent encounter; G89.29 Other chronic pain; J44.9 Chronic obstructive pulmonary disease, unspecified
CPT/HCPCS: 99281

== ENCOUNTER 2022-07-08 09:35 | Emergency (ER) | payer MEDICARE, MEDICAID ==
[~2022-07-08] VITALS: Ht 170.2 cm; Wt 68.6 kg
[2022-07-08 09:45] VITALS: BP 125/79
[2022-07-08 10:15] LABS: BASOPHILS % (AUTO) 0.2 % (0-1); EOSINOPHILS % (AUTO) 0.3 % (0-6); HEMATOCRIT 52.2 % (35.0-45.0); HEMOGLOBIN 16.9 g/dl (12.0-16.0); LYMPHOCYTES # (AUTO) 1.8 X10'3 (1.1-4.8); LYMPHOCYTES % (AUTO) 41.1 % (21-51); MEAN CORPUSCULAR HEMOGLOBIN 28.4 PG (27.0-31.0); MEAN CORPUSCULAR HGB CONC 32.5 g/dL (33.0-36.5); MEAN CORPUSCULAR VOLUME 87.6 FL (78-98); MEAN PLATELET VOLUME 9.4 FL (7.4-10.4); MONOCYTES # (AUTO) 0.6 X10'3 (0-0.9); MONOCYTES % (AUTO) 12.9 % (2-12); NEUTROPHILS % (AUTO) 45.5 % (42-75); PLATELET COUNT 162 X10'3 (140-440); RED BLOOD COUNT 5.96 X10'6 (4.20-5.60); RED CELL DISTRIBUTION WIDTH 14.1 % (11.5-14.5); WHITE BLOOD COUNT 4.3 X10'3 (4.5-11.0)
[2022-07-08] MEDS ORDERED: methylPREDNISolone sod succ 125mg/2ml vial IV ONE (11:20)
[2022-07-08] MEDS ORDERED: ipratropium/albuterol 3ml nebule NEB ONE (11:20)
[2022-07-08] MEDS ORDERED: magnesium 2GM in 50ml NS 50 ML IV ONE (11:20)
--- NOTE | 2022-07-08 11:51 | NUR ---
patient requesting to leave, attempted to have patient sign AMA form, refused.
[2022-07-08 14:42] LABS: ALBUMIN 3.5 G/DL (3.4-5.0); ANION GAP 12 (8-16); BLOOD UREA NITROGEN 15 MG/DL (7-18); CHLORIDE 99 MMOL/L (99-107); CREATININE 0.75 MG/DL (0.40-0.90); GLUCOSE 118 MG/DL (70-104); MAGNESIUM 1.8 MG/DL (1.5-2.4); POTASSIUM 4.1 MMOL/L (3.5-5.1); SODIUM 137 MMOL/L (135-145); TOTAL CARBON DIOXIDE 25.7 MMOL/L (24-32); eGFR 77 ML/MIN
== END 2022-07-08 12:01 | disposition left against medical advice (07) ==
LOC: ER 09:35
DX: J44.1 Chronic obstructive pulmonary disease with (acute) exacerbation (principal); G89.29 Other chronic pain; F17.210 Nicotine dependence, cigarettes, uncomplicated; Z79.899 Other long term (current) drug therapy
CPT/HCPCS: 36415; 71046; 80048; 83735; 83880; 84484; 85025; 93005; 94640; 94760; 99285

== ENCOUNTER 2023-11-06 17:30 | Inpatient (IN) | payer MEDICARE, MEDICAID ==
[~2023-11-06] VITALS: Ht 170.2 cm; Wt 69.1 kg
[2023-11-06] MEDS: morphine 4 MG/ML inj SYRINge IV ONE ×2 (18:07→20:28)
[2023-11-06] MEDS: aspirin 325mg tablet PO ONE (18:11)
[2023-11-06 18:12] LABS: BASOPHILS # (AUTO) 0.1 X10'3 (0-0.2); BASOPHILS % (AUTO) 0.5 % (0-1); EOSINOPHILS % (AUTO) 0.3 % (0-6); HEMATOCRIT 45.1 % (35.0-45.0); HEMOGLOBIN 14.7 g/dl (12.0-16.0); LYMPHOCYTES # (AUTO) 1.1 X10'3 (1.1-4.8); LYMPHOCYTES % (AUTO) 9.9 % (21-51); MEAN CORPUSCULAR HEMOGLOBIN 25.5 PG (27.0-31.0); MEAN CORPUSCULAR HGB CONC 32.7 g/dL (33.0-36.5); MEAN CORPUSCULAR VOLUME 77.9 FL (78-98); MONOCYTES # (AUTO) 0.6 X10'3 (0-0.9); MONOCYTES % (AUTO) 5.9 % (2-12); NEUTROPHILS # (AUTO) 8.9 X10'3 (1.8-7.7); NEUTROPHILS % (AUTO) 83.4 % (42-75); PLATELET COUNT 249 X10'3 (140-440); RED BLOOD COUNT 5.79 X10'6 (4.20-5.60); RED CELL DISTRIBUTION WIDTH 17.9 % (11.5-14.5); WHITE BLOOD COUNT 10.7 X10'3 (4.5-11.0)
[2023-11-06] MEDS: albuterol 2.5 MG/3 ML nebule NEB ONE (18:15)
[2023-11-06 18:18] VITALS: PULSE 112; RESP 28; O2SAT 96
[2023-11-06 18:21] VITALS: PULSE 115; RESP 34; O2SAT 94
[2023-11-06 18:33] LABS: ALBUMIN 3.8 G/DL (3.4-5.0); ANION GAP 11 (8-16); BLOOD UREA NITROGEN 16 MG/DL (7-18); BUN/CREATININE RATIO 20.3 (10.0-20.0); CHLORIDE 102 MMOL/L (99-107); CREATININE 0.79 MG/DL (0.40-0.90); GLUCOSE 107 MG/DL (70-104); POTASSIUM 3.4 MMOL/L (3.5-5.1); SODIUM 141 MMOL/L (135-145); TOTAL CARBON DIOXIDE 28.1 MMOL/L (24-32); eCRCL 65 ML/MIN; eGFR 72 ML/MIN
[2023-11-06] MEDS ORDERED: potassium Cl 20 mEq SR tablet PO PRN ×2 (22:55)
[2023-11-06] MEDS ORDERED: magnesium hydroxide 30ml (MOM) UD suspension PO PRN (22:55)
[2023-11-06] MEDS ORDERED: acetaminophen 325mg tablet PO PRN (22:55)
[2023-11-06] MEDS ORDERED: magnesium 2GM in 50ml NS 50 ML IV PRN (22:55)
[2023-11-06] MEDS ORDERED: mag hydrox/Alum hydrox/simeth 30ml oral suspension PO PRN (22:55)
[2023-11-06] MEDS ORDERED: potassium Cl 40MEQ/1/2NS 520ml 520 ML IV PRN (22:55)
[2023-11-06] MEDS ORDERED: magnesium 4gm in 100ml NS 100 ML IV PRN (22:55)
[2023-11-06] MEDS ORDERED: magnesium Cl slow-release 64mg tablet PO PRN (22:55)
[2023-11-07] VITALS (13 sets, daily range): BP systolic 104–139; BP diastolic 63–79; PULSE 74–109; RESP 16–34; TEMP 95.8–99.5; O2SAT 92–96
[2023-11-07] MEDS: ondansetron/PF 4mg/2ml inj IV PRN (04:47)
[2023-11-07] MEDS: HYDROcodone/acetaminophen 5mg/325mg tablet PO PRN (04:51)
[2023-11-07] MEDS: methylPREDNISolone sod succ/PF 40mg inj. IV SCH ×2 (07:44→21:04)
[2023-11-07] MEDS: heparin, porcine 5000 units/ml vial SQ SCH (07:45)
[2023-11-07] MEDS: docusate sod 100mg capsule PO SCH (07:49)
[2023-11-07] MEDS: K and/or MAG REPLACEMENT MC SCH (07:49)
[2023-11-07 08:52] LABS: BASOPHILS % (AUTO) 0.3 % (0-1); EOSINOPHILS % (AUTO) 0.1 % (0-6); HEMATOCRIT 41.8 % (35.0-45.0); HEMOGLOBIN 13.5 g/dl (12.0-16.0); LYMPHOCYTES # (AUTO) 1.2 X10'3 (1.1-4.8); LYMPHOCYTES % (AUTO) 10.8 % (21-51); MEAN CORPUSCULAR HEMOGLOBIN 25.4 PG (27.0-31.0); MEAN CORPUSCULAR HGB CONC 32.4 g/dL (33.0-36.5); MEAN CORPUSCULAR VOLUME 78.3 FL (78-98); MEAN PLATELET VOLUME 9.4 FL (7.4-10.4); MONOCYTES # (AUTO) 1.1 X10'3 (0-0.9); MONOCYTES % (AUTO) 9.1 % (2-12); NEUTROPHILS # (AUTO) 9.2 X10'3 (1.8-7.7); NEUTROPHILS % (AUTO) 79.7 % (42-75); PLATELET COUNT 203 X10'3 (140-440); RED BLOOD COUNT 5.33 X10'6 (4.20-5.60); RED CELL DISTRIBUTION WIDTH 17.7 % (11.5-14.5); WHITE BLOOD COUNT 11.5 X10'3 (4.5-11.0)
[2023-11-07 08:53] LABS: ALANINE AMINOTRANSFERASE 18 U/L (12-78); ALBUMIN/GLOBULIN RATIO 0.8 (1.1-1.5); ALKALINE PHOSPHATASE 80 IU/L (46-116); ANION GAP 10 (8-16); ASPARTATE AMINO TRANSFERASE 23 U/L (10-37); BILIRUBIN,TOTAL 0.5 MG/DL (0.1-1.0); BLOOD UREA NITROGEN 19 MG/DL (7-18); BUN/CREATININE RATIO 22.1 (10.0-20.0); CALCIUM 8.6 MG/DL (8.5-10.1); CHLORIDE 104 MMOL/L (99-107); CREATININE 0.86 MG/DL (0.40-0.90); GLUCOSE 109 MG/DL (70-104); POTASSIUM 4.1 MMOL/L (3.5-5.1); SODIUM 138 MMOL/L (135-145); TOTAL CARBON DIOXIDE 23.8 MMOL/L (24-32); TOTAL PROTEIN 6.7 G/DL (6.4-8.2); eCRCL 60 ML/MIN; eGFR 65 ML/MIN
[2023-11-07] MEDS ORDERED: ALBUTEROL (10:43)
[2023-11-07] MEDS ORDERED: FLUT1BLS4 INH (10:43)
[2023-11-07] MEDS: nicotine 14mg patch - 24hr TD SCH (11:08)
[2023-11-07] MEDS ORDERED: FLU VACC QS2023-24(6MOS UP)/PF 60 MCG/0.5 ML SYRINGE IM ONE (11:20)
[2023-11-07] MEDS: albuterol 2.5 MG/3 ML nebule NEB SCH (12:10)
[2023-11-07] MEDS: CefTRIAXone 2gm/D5W 50ml BAG 50 ML IV ONE (12:57)
[2023-11-07] MEDS: guaiFENesin/DM 10ml UD oral syrup PO ONE (21:04)
[2023-11-07] MEDS: morphine 2 MG/ML inj. syringe IV ONE (21:06)
[2023-11-08] VITALS (13 sets, daily range): BP systolic 150; BP diastolic 84–88; PULSE 86–108; RESP 12–23; TEMP 97.6–97.9; O2SAT 89–95
[2023-11-08] MEDS: morphine 2 MG/ML inj. syringe IV PRN (08:33)
[2023-11-08 08:39] LABS: BASOPHILS % (AUTO) 0.1 % (0-1); EOSINOPHILS % (AUTO) 0 % (0-6); HEMATOCRIT 43.9 % (35.0-45.0); HEMOGLOBIN 14.1 g/dl (12.0-16.0); LYMPHOCYTES # (AUTO) 0.9 X10'3 (1.1-4.8); LYMPHOCYTES % (AUTO) 11.5 % (21-51); MEAN CORPUSCULAR HEMOGLOBIN 25.3 PG (27.0-31.0); MEAN CORPUSCULAR HGB CONC 32.2 g/dL (33.0-36.5); MEAN CORPUSCULAR VOLUME 78.6 FL (78-98); MEAN PLATELET VOLUME 9.1 FL (7.4-10.4); MONOCYTES # (AUTO) 0.6 X10'3 (0-0.9); MONOCYTES % (AUTO) 7.5 % (2-12); NEUTROPHILS # (AUTO) 6.5 X10'3 (1.8-7.7); NEUTROPHILS % (AUTO) 80.9 % (42-75); PLATELET COUNT 169 X10'3 (140-440); RED BLOOD COUNT 5.59 X10'6 (4.20-5.60); RED CELL DISTRIBUTION WIDTH 18.1 % (11.5-14.5)
[2023-11-08] MEDS: FLU VACC QS2023-24(6MOS UP)/PF 60 MCG/0.5 ML SYRINGE IM ONE (10:00)
[2023-11-08 12:37] LABS: ALANINE AMINOTRANSFERASE 20 U/L (12-78); ALBUMIN/GLOBULIN RATIO 0.7 (1.1-1.5); ALKALINE PHOSPHATASE 77 IU/L (46-116); ANION GAP 9 (8-16); ASPARTATE AMINO TRANSFERASE 25 U/L (10-37); BILIRUBIN,TOTAL 0.3 MG/DL (0.1-1.0); BLOOD UREA NITROGEN 23 MG/DL (7-18); BUN/CREATININE RATIO 29.5 (10.0-20.0); CALCIUM 8.9 MG/DL (8.5-10.1); CHLORIDE 103 MMOL/L (99-107); CREATININE 0.78 MG/DL (0.40-0.90); GLUCOSE 144 MG/DL (70-104); POTASSIUM 4.7 MMOL/L (3.5-5.1); SODIUM 138 MMOL/L (135-145); TOTAL CARBON DIOXIDE 25.7 MMOL/L (24-32); TOTAL PROTEIN 7.2 G/DL (6.4-8.2); eCRCL 66 ML/MIN; eGFR 73 ML/MIN
[2023-11-08] MEDS ORDERED: LORazepam 2 mg/ml vial IV PRN (14:35)
[2023-11-08] MEDS: guaiFENesin/DM 10ml UD oral syrup PO PRN (15:49)
[2023-11-08] MEDS: LORazepam 0.5 MG tablet PO PRN (20:19)
[2023-11-08] MEDS: methylPREDNISolone sod succ/PF 40mg inj. IV SCH (20:28)
[2023-11-09] VITALS (17 sets, daily range): BP systolic 139–161; BP diastolic 80–95; PULSE 81–120; RESP 16–25; TEMP 97.6–98.8; O2SAT 3–96
[2023-11-09] MEDS: albuterol 2.5 MG/3 ML nebule NEB PRN (05:03)
[2023-11-09] MEDS ORDERED: morphine 2 MG/ML inj. syringe IV PRN ×2 (16:00→18:58)
[2023-11-09] MEDS: CefTRIAXone 2gm/D5W 50ml BAG 50 ML IV SCH (16:23)
[2023-11-09] MEDS: methylPREDNISolone sod succ/PF 40mg inj. IV SCH (19:45)
[2023-11-09] MEDS: HYDROcodone/acetaminophen 5mg/325mg tablet PO PRN (19:50)
[2023-11-10 06:00] VITALS: BP 158/92; PULSE 82; RESP 16; TEMP 97.7; O2SAT 95
[2023-11-10 08:05] VITALS: PULSE 94; RESP 19; O2SAT 91
[2023-11-10 08:50] VITALS: RESP 20; O2SAT 95
[2023-11-10 08:54] LABS: BASOPHILS % (AUTO) 0.2 % (0-1); EOSINOPHILS % (AUTO) 0 % (0-6); HEMATOCRIT 42.6 % (35.0-45.0); HEMOGLOBIN 13.8 g/dl (12.0-16.0); LYMPHOCYTES # (AUTO) 1.2 X10'3 (1.1-4.8); LYMPHOCYTES % (AUTO) 21.9 % (21-51); MEAN CORPUSCULAR HEMOGLOBIN 25.2 PG (27.0-31.0); MEAN CORPUSCULAR HGB CONC 32.5 g/dL (33.0-36.5); MEAN CORPUSCULAR VOLUME 77.6 FL (78-98); MEAN PLATELET VOLUME 9.2 FL (7.4-10.4); MONOCYTES # (AUTO) 0.7 X10'3 (0-0.9); MONOCYTES % (AUTO) 14.2 % (2-12); NEUTROPHILS # (AUTO) 3.3 X10'3 (1.8-7.7); NEUTROPHILS % (AUTO) 63.7 % (42-75); PLATELET COUNT 248 X10'3 (140-440); RED BLOOD COUNT 5.49 X10'6 (4.20-5.60); RED CELL DISTRIBUTION WIDTH 17.9 % (11.5-14.5); WHITE BLOOD COUNT 5.3 X10'3 (4.5-11.0)
[2023-11-10 09:16] LABS: ALANINE AMINOTRANSFERASE 16 U/L (12-78); ALBUMIN 2.5 G/DL (3.4-5.0); ALBUMIN/GLOBULIN RATIO 0.6 (1.1-1.5); ALKALINE PHOSPHATASE 66 IU/L (46-116); ANION GAP 9 (8-16); ASPARTATE AMINO TRANSFERASE 24 U/L (10-37); BILIRUBIN,TOTAL 0.4 MG/DL (0.1-1.0); BLOOD UREA NITROGEN 23 MG/DL (7-18); CALCIUM 8.3 MG/DL (8.5-10.1); CHLORIDE 101 MMOL/L (99-107); CREATININE 0.59 MG/DL (0.40-0.90); GLUCOSE 146 MG/DL (70-104); MAGNESIUM 2.2 MG/DL (1.5-2.4); POTASSIUM 4.1 MMOL/L (3.5-5.1); SODIUM 137 MMOL/L (135-145); TOTAL CARBON DIOXIDE 27.2 MMOL/L (24-32); TOTAL PROTEIN 6.7 G/DL (6.4-8.2); eCRCL 88 ML/MIN; eGFR > 90 ML/MIN
[2023-11-10 10:00] VITALS: BP 164/90; PULSE 77; RESP 20; TEMP 97.7; O2SAT 97
[2023-11-10 11:37] VITALS: PULSE 78; RESP 16; O2SAT 92
[2023-11-10] MEDS ORDERED: ROBDML PO (11:50)
[2023-11-10] MEDS ORDERED: LEVO-65 PO (11:50)
[2023-11-10] MEDS ORDERED: ALBU2.5V7 NEB (11:50)
[2023-11-10] MEDS ORDERED: NICO-631 TD (11:50)
[2023-11-10] MEDS ORDERED: PRED20TA PO (11:50)
[2023-11-10] MEDS ORDERED: ACET-1008 PO (11:51)
[2023-11-10 14:34] VITALS: RESP 22
== END 2023-11-10 14:42 | disposition home or self-care (01) | DRG 193 ==
LOC: ER 17:31 → ED HOLD 23:03 → ORTHO 4S 11-07 07:38
PROVIDERS: ADMIT Internal Medicine; ATTEND Internal Medicine
DX: J18.9 Pneumonia, unspecified organism (principal); J96.00 Acute respiratory failure, unspecified whether with hypoxia or hypercapnia; J44.1 Chronic obstructive pulmonary disease with (acute) exacerbation; J44.0 Chronic obstructive pulmonary disease with (acute) lower respiratory infection; G89.29 Other chronic pain; F41.9 Anxiety disorder, unspecified; F17.200 Nicotine dependence, unspecified, uncomplicated; Z90.710 Acquired absence of both cervix and uterus; Z85.820 Personal history of malignant melanoma of skin; Z76.5 Malingerer [conscious simulation]
CPT/HCPCS: 36415; 71045; 80048; 80053; 83605; 83735; 84145; 84484; 85025; 87040; 87081; 90686; 93005; 94640; 94664; 94668; 94760; 97161; 97530; 99285; A4615; G0378; J0696; J1644; J2270; J2405; J2920; J7030; J7040

== ENCOUNTER 2024-04-05 20:24 | Inpatient (IN) | payer MEDICARE, MEDICAID ==
[~2024-04-05] VITALS: Ht 170.2 cm; Wt 80.6 kg
[~2024-04-05 20:24] MED LIST changes: +ALBU2.5V7 NEB; +ALBUTEROL; -FENT1PAT10 TP; +FLUT1BLS4 INH; -HYDR-3972 PO; +NICO-631 TD; +ROBDML PO
[2024-04-05] MEDS: LORazepam 2 mg/ml vial IV ONE ×2 (20:33→23:15)
[2024-04-05] MEDS: albuterol 2.5 MG/3 ML nebule CONTNEB PRN (20:40)
[2024-04-05 20:41] VITALS: PULSE 121; RESP 22; O2SAT 92
[2024-04-05] MEDS: normal saline 1000ML IV soln IVB ONE (20:42)
[2024-04-05] MEDS: magnesium sulf-water 2g/50mL 50 ML IV ONE (20:43)
[2024-04-05] MEDS: methylPREDNISolone sod succ 125mg/2ml vial IV ONE (20:44)
[2024-04-05 21:10] LABS: BASOPHILS # (AUTO) 0.1 X10'3 (0-0.2); BASOPHILS % (AUTO) 0.7 % (0-1); EOSINOPHILS # (AUTO) 0.6 X10'3 (0-0.9); EOSINOPHILS % (AUTO) 5.5 % (0-6); HEMATOCRIT 41.9 % (35.0-45.0); HEMOGLOBIN 13.8 g/dl (12.0-16.0); LYMPHOCYTES # (AUTO) 2.5 X10'3 (1.1-4.8); LYMPHOCYTES % (AUTO) 24.3 % (21-51); MEAN CORPUSCULAR VOLUME 81.7 FL (78-98); MEAN PLATELET VOLUME 8.7 FL (7.4-10.4); MONOCYTES # (AUTO) 0.8 X10'3 (0-0.9); MONOCYTES % (AUTO) 7.2 % (2-12); NEUTROPHILS # (AUTO) 6.5 X10'3 (1.8-7.7); NEUTROPHILS % (AUTO) 62.3 % (42-75); PLATELET COUNT 215 X10'3 (140-440); RED BLOOD COUNT 5.13 X10'6 (4.20-5.60); RED CELL DISTRIBUTION WIDTH 16.7 % (11.5-14.5); WHITE BLOOD COUNT 10.5 X10'3 (4.5-11.0)
[2024-04-05 21:32] LABS: ALBUMIN 3.4 G/DL (3.4-5.0); ANION GAP 8 (8-16); BLOOD UREA NITROGEN 16 MG/DL (7-18); BUN/CREATININE RATIO 22.5 (10.0-20.0); CALCIUM 8.5 MG/DL (8.5-10.1); CHLORIDE 111 MMOL/L (99-107); CREATININE 0.71 MG/DL (0.40-0.90); GLUCOSE 134 MG/DL (70-104); POTASSIUM 4.3 MMOL/L (3.5-5.1); SODIUM 145 MMOL/L (135-145); TOTAL CARBON DIOXIDE 25.7 MMOL/L (24-32); eCRCL 72 ML/MIN; eGFR 81 ML/MIN
[2024-04-05 22:37] LABS: ABG BASE EXCESS -5.8 mmol/L (-2.0-3.0); ABG OXYGEN SATURATION 90.3 % (94.0-98.0); ABG PCO2 (T) 39.8 mmHg (32.0-45.0); ABG PH (T) 7.317 (7.350-7.450); ABG PO2 (T) 62.7 mmHg (83.0-108.0); FCOHb 0.8 % (0.5-1.5); FHHb 9.6 % (0.0-5.0); FLOW 2 L/min; FMetHb 0.2 % (0.0-1.5); FO2Hb 89.4 % (94.0-98.0); MODE NASAL CANNULA; PATIENT TEMPERATURE 36.9; TOTAL HEMOGLOBIN 14.8 G/dl (12.0-16.0)
[2024-04-05 22:49] VITALS: PULSE 118; RESP 30
[2024-04-05] MEDS: ipratropium/albuterol 3ml nebule NEB ONE (22:54)
[2024-04-05] MEDS: albuterol 2.5 MG/3 ML nebule NEB ONE (22:55)
[2024-04-05 22:59] VITALS: PULSE 116; RESP 22; O2SAT 97
[2024-04-05 23:12] VITALS: PULSE 128; RESP 28; O2SAT 96
[2024-04-05] MEDS: morphine 2 MG/ML inj. syringe IV ONE (23:19)
[2024-04-06] VITALS (75 sets, daily range): BP systolic 82–201; BP diastolic 47–117; PULSE 68–123; RESP 14–33; O2SAT 80–100
[2024-04-06] MEDS ORDERED: rocuronium bromide 100mg/10ml (10mg/ml) injection IV ONE
[2024-04-06] MEDS: rocuronium 10mg/ml inj IV ONE (00:24)
[2024-04-06] MEDS: etomidate 2mg/ml inj. IV ONE (00:24)
[2024-04-06] MEDS: MIDAZOLAM IN NACL,ISO-OSMOT/PF 100 ML IV PRN (00:33)
[2024-04-06] MEDS ORDERED: magnesium hydroxide 30ml (MOM) UD suspension PO PRN (01:05)
[2024-04-06] MEDS ORDERED: acetaminophen 325mg tablet PO PRN (01:05)
[2024-04-06] MEDS ORDERED: morphine 2 MG/ML inj. syringe IV PRN (01:05)
[2024-04-06] MEDS ORDERED: bisacodyl 10mg suppository rectal RC PRN (01:05)
[2024-04-06] MEDS ORDERED: ipratropium/albuterol 3ml nebule NEB PRN (01:05)
[2024-04-06] MEDS: fentaNYL/PF 50MCG/1 ML 2ML syringe IV PRN (01:17)
[2024-04-06 01:43] LABS: ABG BASE EXCESS -6.6 mmol/L (-2.0-3.0); ABG HCO3 19.4 mmol/L (21.0-28.0); ABG PCO2 (T) 39.7 mmHg (32.0-45.0); ABG PH (T) 7.305 (7.350-7.450); ABG PO2 (T) 66.1 mmHg (83.0-108.0); ALLEN'S TEST Modified; FCOHb 0.7 % (0.5-1.5); FHHb 7.9 % (0.0-5.0); FMetHb 0.3 % (0.0-1.5); FO2Hb 91.1 % (94.0-98.0); MODE CMV PRVC IT 0.8; PATIENT TEMPERATURE 36.6; PEEP 5 cm H2O; RESPIRATORY RATE 20 b/min; TIDAL VOLUME 500 mL; TOTAL HEMOGLOBIN 15.8 G/dl (12.0-16.0)
[2024-04-06] MEDS: propofol 1000mg/100ml bottle 100 ML IV SCH ×2 (02:03→16:16)
[2024-04-06] MEDS: sodium chloride 0.45% 1,000 ML IV SCH (02:04)
[2024-04-06] MEDS: FENTANYL-0.9 % NACL/PF 100 ML IV SCH (03:27)
[2024-04-06 03:50] LABS: BILIRUBIN,URINE NEGATIVE (Neg); CLARITY,URINE SLIGHTLY CLOUDY (Clear); COLOR,URINE YELLOW (Yellow); GLUCOSE, URINE 100 mg/dl (Neg); KETONES,URINE NEGATIVE (Neg); LEUKOCYTE ESTERASE ,URINE NEGATIVE (Neg); NITRITES, URINE NEGATIVE (Neg); OCCULT BLOOD,URINE SMALL (Neg); PROTEIN,URINE 100 mg/dl (Neg); UROBILINOGEN,URINE 0.2 E.U/dL (0.2-1.0)
[2024-04-06 03:51] LABS: UA COLLECTION TYPE FOLEY CATH
[2024-04-06 03:59] LABS: URINE AMPHETAMINE SCREEN POSITIVE (Neg); URINE BARBITUATE SCREEN NEGATIVE (Neg); URINE BENZODIAZEPINES SCREEN POSITIVE (Neg); URINE CANNABINOID SCREEN NEGATIVE (Neg); URINE COCAINE SCREEN NEGATIVE (Neg); URINE METHADONE SCREEN NEGATIVE (Neg); URINE OPIATE SCREEN POSITIVE (Neg); URINE PHENCYCLIDINE SCREEN NEGATIVE (Neg)
[2024-04-06 04:05] LABS: MUCUS STRANDS MODERATE /LPF (Neg); SQUAMOUS EPITHELIAL CELL,UR MODERATE /LPF (FEW)
[2024-04-06 04:06] LABS: BACTERIA,URINE FEW /HPF (Neg); WBC,URINE 0-4 /HPF (0-4)
[2024-04-06 05:05] LABS: ABG HCO3 19.9 mmol/L (21.0-28.0); ABG OXYGEN SATURATION 98.4 % (94.0-98.0); ABG PCO2 (T) 35.7 mmHg (32.0-45.0); ABG PH (T) 7.361 (7.350-7.450); ABG PO2 (T) 109.2 mmHg (83.0-108.0); ALLEN'S TEST POSITIVE; FCOHb 0.8 % (0.5-1.5); FHHb 1.6 % (0.0-5.0); FMetHb 0.3 % (0.0-1.5); FO2Hb 97.3 % (94.0-98.0); MODE VENT - AC; PATIENT TEMPERATURE 36.5; PEEP 5 cm H2O; RESPIRATORY RATE 20 b/min; TIDAL VOLUME 500 mL; TOTAL HEMOGLOBIN 14.3 G/dl (12.0-16.0)
[2024-04-06] MEDS ORDERED: methylPREDNISolone sod succ/PF 40mg inj. IV SCH ×2 (06:40→08:00)
[2024-04-06] MEDS ORDERED: METHYLPREDNISOLONE SOD SUCC 125 MG/2ML INJ. IV SCH (06:40)
[2024-04-06] MEDS: methylPREDNISolone sod succ 125mg/2ml vial IV SCH (07:40)
[2024-04-06] MEDS: azithromycin/NS 500mg/250ml 250 ML IV SCH (07:40)
[2024-04-06] MEDS: enoxaparin 40mg/0.4ml syringe SUBCUT SCH (07:40)
[2024-04-06] MEDS: CefTRIAXone/D5W-Rocephin 1gm 50 ML IV SCH (07:40)
[2024-04-06] MEDS: famotidine/PF 10 mg/ml inj IV SCH (07:40)
[2024-04-06] MEDS: dexmedetomidin/NS 400mcg/100ml 100 ML IV PRN (07:41)
[2024-04-06] MEDS: LORazepam 2 mg/ml vial IV ONE (08:38)
[2024-04-06] MEDS ORDERED: albuterol 2.5 MG/3 ML nebule NEB PRN (09:50)
[2024-04-06] MEDS ORDERED: MED LIST UNOBTAINABL (11:04)
[2024-04-06 11:30] LABS: ALANINE AMINOTRANSFERASE 17 U/L (12-78); ALBUMIN 3.2 G/DL (3.4-5.0); ALKALINE PHOSPHATASE 84 IU/L (46-116); ANION GAP 11 (8-16); ASPARTATE AMINO TRANSFERASE 18 U/L (10-37); BILIRUBIN,TOTAL 0.3 MG/DL (0.1-1.0); BLOOD UREA NITROGEN 21 MG/DL (7-18); CALCIUM 8.6 MG/DL (8.5-10.1); CHLORIDE 110 MMOL/L (99-107); CREATININE 0.75 MG/DL (0.40-0.90); GLUCOSE 192 MG/DL (70-104); POTASSIUM 4.5 MMOL/L (3.5-5.1); SODIUM 142 MMOL/L (135-145); TOTAL CARBON DIOXIDE 20.7 MMOL/L (24-32); TOTAL PROTEIN 6.4 G/DL (6.4-8.2); eCRCL 68 ML/MIN; eGFR 76 ML/MIN
[2024-04-06] MEDS: LORazepam 2 mg/ml vial ONE (11:39)
[2024-04-06] MEDS: albuterol 2.5 MG/3 ML nebule NEB SCH (11:46)
[2024-04-06] MEDS: LORazepam 2 mg/ml vial IV PRN (14:55)
[2024-04-06] MEDS ORDERED: propofol 1000mg/100ml bottle 100 ML IV SCH (16:10)
[2024-04-06] MEDS ORDERED: FENTANYL-0.9 % NACL/PF 100 ML IV SCH (16:10)
[2024-04-06] MEDS: fentaNYL/NS/PF 2,500 mcg/250mL 250 ML IV SCH (16:42)
[2024-04-06] MEDS: propofol 1000mg/100ml bottle 100 ML IV ONE (16:42)
[2024-04-06] MEDS: COMMUNICATION ORDER 1 EA MISC MC ONE (17:36)
[2024-04-06] MEDS ORDERED: etomidate 2mg/ml inj. ONE (18:00)
[2024-04-07] VITALS (50 sets, daily range): BP systolic 73–166; BP diastolic 44–98; PULSE 55–103; RESP 18–21; O2SAT 93–98
[2024-04-07] MEDS ORDERED: mineral oil/petrolatum ophthal oint EACHEYE SCH (02:00)
[2024-04-07 03:08] LABS: ABG BASE EXCESS -4.5 mmol/L (-2.0-3.0); ABG OXYGEN SATURATION 94.1 % (94.0-98.0); ABG PCO2 (T) 35.2 mmHg (32.0-45.0); ABG PH (T) 7.372 (7.350-7.450); ABG PO2 (T) 72.7 mmHg (83.0-108.0); ALLEN'S TEST Modified; FCOHb 0.8 % (0.5-1.5); FHHb 5.8 % (0.0-5.0); FMetHb 0.3 % (0.0-1.5); FO2Hb 93.1 % (94.0-98.0); MODE prvc; PATIENT TEMPERATURE 37.2; PEEP 5 cm H2O; RESPIRATORY RATE 20 b/min; TIDAL VOLUME 500 mL; TOTAL HEMOGLOBIN 13.2 G/dl (12.0-16.0)
[2024-04-07] MEDS: NORepinephrine 8mg/ 250ml NS 250 ML IV SCH (03:18)
[2024-04-07 04:46] LABS: BASOPHILS % (AUTO) 0.1 % (0-1); EOSINOPHILS % (AUTO) 0 % (0-6); HEMATOCRIT 40.8 % (35.0-45.0); HEMOGLOBIN 13.2 g/dl (12.0-16.0); LYMPHOCYTES % (AUTO) 6.9 % (21-51); MEAN CORPUSCULAR HEMOGLOBIN 26.9 PG (27.0-31.0); MEAN CORPUSCULAR HGB CONC 32.4 g/dL (33.0-36.5); MEAN CORPUSCULAR VOLUME 82.9 FL (78-98); MEAN PLATELET VOLUME 9.5 FL (7.4-10.4); MONOCYTES # (AUTO) 0.4 X10'3 (0-0.9); MONOCYTES % (AUTO) 2.8 % (2-12); NEUTROPHILS # (AUTO) 12.7 X10'3 (1.8-7.7); NEUTROPHILS % (AUTO) 90.2 % (42-75); PLATELET COUNT 248 X10'3 (140-440); RED BLOOD COUNT 4.92 X10'6 (4.20-5.60); RED CELL DISTRIBUTION WIDTH 17.3 % (11.5-14.5); WHITE BLOOD COUNT 14.1 X10'3 (4.5-11.0)
[2024-04-07 05:00] LABS: ALBUMIN 3.2 G/DL (3.4-5.0); ANION GAP 9 (8-16); BLOOD UREA NITROGEN 38 MG/DL (7-18); BUN/CREATININE RATIO 46.9 (10.0-20.0); CALCIUM 8.9 MG/DL (8.5-10.1); CHLORIDE 107 MMOL/L (99-107); CREATININE 0.81 MG/DL (0.40-0.90); GLUCOSE 161 MG/DL (70-104); MAGNESIUM 2.4 MG/DL (1.5-2.4); PHOSPHORUS 4.6 MG/DL (2.3-4.5); POTASSIUM 4.5 MMOL/L (3.5-5.1); SODIUM 139 MMOL/L (135-145); TOTAL CARBON DIOXIDE 22.9 MMOL/L (24-32); TRIGLYCERIDES 85 MG/DL (20-135); eCRCL 63 ML/MIN; eGFR 70 ML/MIN
[2024-04-07] MEDS: ringers solution, lacted 1,000 ML IV ONE ×3 (06:47→10:48)
[2024-04-07] MEDS ORDERED: piperacillin/tazo 3.375gm/50ml 50 ML IV SCH (08:00)
[2024-04-07] MEDS: CefTRIAXone/D5W-Rocephin 1gm 50 ML IV SCH (08:14)
[2024-04-07] MEDS: azithromycin/NS 500mg/250ml 250 ML IV SCH (08:14)
[2024-04-07] MEDS: COMMUNICATION ORDER 1 EA MISC MC ONE (10:47)
[2024-04-07] MEDS: quetiapine 100mg tablet PO SCH (14:25)
[2024-04-08] VITALS (46 sets, daily range): BP systolic 87–111; BP diastolic 47–77; PULSE 51–84; RESP 19–22; O2SAT 16–97
[2024-04-08 03:17] LABS: ABG BASE EXCESS -2.8 mmol/L (-2.0-3.0); ABG HCO3 20.7 mmol/L (21.0-28.0); ABG OXYGEN SATURATION 95.3 % (94.0-98.0); ABG PCO2 (T) 30.9 mmHg (32.0-45.0); ABG PO2 (T) 72.6 mmHg (83.0-108.0); ALLEN'S TEST Modified; FHHb 4.6 % (0.0-5.0); FMetHb 0.3 % (0.0-1.5); FO2Hb 94.1 % (94.0-98.0); MODE ac/prvc; PEEP 5 cm H2O; RESPIRATORY RATE 20 b/min; TIDAL VOLUME 500 mL; TOTAL HEMOGLOBIN 12.6 G/dl (12.0-16.0)
[2024-04-08 06:10] LABS: BASOPHILS % (AUTO) 0.1 % (0-1); EOSINOPHILS % (AUTO) 0 % (0-6); HEMATOCRIT 36.8 % (35.0-45.0); LYMPHOCYTES # (AUTO) 0.8 X10'3 (1.1-4.8); LYMPHOCYTES % (AUTO) 7.7 % (21-51); MEAN CORPUSCULAR HEMOGLOBIN 26.8 PG (27.0-31.0); MEAN CORPUSCULAR HGB CONC 32.6 g/dL (33.0-36.5); MEAN CORPUSCULAR VOLUME 82.2 FL (78-98); MEAN PLATELET VOLUME 9.8 FL (7.4-10.4); MONOCYTES # (AUTO) 0.3 X10'3 (0-0.9); MONOCYTES % (AUTO) 3.1 % (2-12); NEUTROPHILS # (AUTO) 8.7 X10'3 (1.8-7.7); NEUTROPHILS % (AUTO) 89.1 % (42-75); PLATELET COUNT 199 X10'3 (140-440); RED BLOOD COUNT 4.48 X10'6 (4.20-5.60); RED CELL DISTRIBUTION WIDTH 17.1 % (11.5-14.5); WHITE BLOOD COUNT 9.8 X10'3 (4.5-11.0)
[2024-04-08 07:02] LABS: ALBUMIN 2.9 G/DL (3.4-5.0); ANION GAP 13 (8-16); BLOOD UREA NITROGEN 38 MG/DL (7-18); BUN/CREATININE RATIO 55.1 (10.0-20.0); CALCIUM 8.6 MG/DL (8.5-10.1); CHLORIDE 108 MMOL/L (99-107); CREATININE 0.69 MG/DL (0.40-0.90); GLUCOSE 141 MG/DL (70-104); MAGNESIUM 2.5 MG/DL (1.5-2.4); PHOSPHORUS 4.3 MG/DL (2.3-4.5); POTASSIUM 4.3 MMOL/L (3.5-5.1); SODIUM 143 MMOL/L (135-145); TOTAL CARBON DIOXIDE 21.9 MMOL/L (24-32); eCRCL 74 ML/MIN; eGFR 84 ML/MIN
[2024-04-08] MEDS: ondansetron/PF 4mg/2ml inj IV PRN (09:07)
[2024-04-08] MEDS ORDERED: NS IV SCH (09:30)
[2024-04-08] MEDS ORDERED: [UNRECOGNIZED DRUG - OTHER] IV SCH (09:30)
[2024-04-08] MEDS: dexmedetomidin/NS 400mcg/100ml 100 ML IV SCH (14:32)
[2024-04-08] MEDS: gabapentin 300mg capsule PO ONE (21:59)
[2024-04-09] VITALS (44 sets, daily range): BP systolic 95–176; BP diastolic 48–99; PULSE 58–125; RESP 12–24; O2SAT 93–98
[2024-04-09 03:25] LABS: ABG BASE EXCESS -3.7 mmol/L (-2.0-3.0); ABG HCO3 20.3 mmol/L (21.0-28.0); ABG OXYGEN SATURATION 94.9 % (94.0-98.0); ABG PCO2 (T) 32.9 mmHg (32.0-45.0); ABG PH (T) 7.406 (7.350-7.450); ABG PO2 (T) 74.3 mmHg (83.0-108.0); ALLEN'S TEST Modified; FCOHb 0.5 % (0.5-1.5); FHHb 5.1 % (0.0-5.0); FMetHb 0.3 % (0.0-1.5); FO2Hb 94.1 % (94.0-98.0); MODE ac/prvc; PATIENT TEMPERATURE 36.7; PEEP 5 cm H2O; RESPIRATORY RATE 20 b/min; TIDAL VOLUME 500 mL; TOTAL HEMOGLOBIN 12.6 G/dl (12.0-16.0)
[2024-04-09 06:40] LABS: BASOPHILS % (AUTO) 0.1 % (0-1); EOSINOPHILS % (AUTO) 0.1 % (0-6); HEMOGLOBIN 12.5 g/dl (12.0-16.0); LYMPHOCYTES # (AUTO) 0.5 X10'3 (1.1-4.8); LYMPHOCYTES % (AUTO) 5.5 % (21-51); MEAN CORPUSCULAR HEMOGLOBIN 27.2 PG (27.0-31.0); MEAN CORPUSCULAR HGB CONC 32.8 g/dL (33.0-36.5); MEAN CORPUSCULAR VOLUME 82.8 FL (78-98); MEAN PLATELET VOLUME 10.3 FL (7.4-10.4); MONOCYTES # (AUTO) 0.3 X10'3 (0-0.9); MONOCYTES % (AUTO) 2.8 % (2-12); NEUTROPHILS # (AUTO) 8.7 X10'3 (1.8-7.7); NEUTROPHILS % (AUTO) 91.5 % (42-75); PLATELET COUNT 199 X10'3 (140-440); RED BLOOD COUNT 4.59 X10'6 (4.20-5.60); RED CELL DISTRIBUTION WIDTH 17.3 % (11.5-14.5); WHITE BLOOD COUNT 9.5 X10'3 (4.5-11.0)
[2024-04-09 06:45] LABS: ALBUMIN 2.9 G/DL (3.4-5.0); ANION GAP 8 (8-16); BLOOD UREA NITROGEN 41 MG/DL (7-18); BUN/CREATININE RATIO 54.7 (10.0-20.0); CALCIUM 8.3 MG/DL (8.5-10.1); CHLORIDE 109 MMOL/L (99-107); CREATININE 0.75 MG/DL (0.40-0.90); GLUCOSE 179 MG/DL (70-104); MAGNESIUM 2.7 MG/DL (1.5-2.4); PHOSPHORUS 4.8 MG/DL (2.3-4.5); POTASSIUM 4.9 MMOL/L (3.5-5.1); SODIUM 140 MMOL/L (135-145); eCRCL 68 ML/MIN; eGFR 76 ML/MIN
[2024-04-09] MEDS: gabapentin 300mg capsule PO SCH (07:19)
[2024-04-09] MEDS: hydrALAZINE 20mg/ml inj. IV PRN (21:42)
[2024-04-09] MEDS: morphine 4 MG/ML inj SYRINge IV PRN (22:17)
[2024-04-10] VITALS (43 sets, daily range): BP systolic 126–202; BP diastolic 73–123; PULSE 54–109; RESP 1–36; O2SAT 94–100
[2024-04-10 08:05] LABS: BASOPHILS % (AUTO) 0.1 % (0-1); EOSINOPHILS % (AUTO) 0 % (0-6); HEMATOCRIT 40.4 % (35.0-45.0); LYMPHOCYTES # (AUTO) 0.7 X10'3 (1.1-4.8); LYMPHOCYTES % (AUTO) 6.9 % (21-51); MEAN CORPUSCULAR HEMOGLOBIN 26.4 PG (27.0-31.0); MEAN CORPUSCULAR HGB CONC 32.2 g/dL (33.0-36.5); MEAN PLATELET VOLUME 9.8 FL (7.4-10.4); MONOCYTES # (AUTO) 0.5 X10'3 (0-0.9); MONOCYTES % (AUTO) 4.6 % (2-12); NEUTROPHILS # (AUTO) 8.8 X10'3 (1.8-7.7); NEUTROPHILS % (AUTO) 88.4 % (42-75); PLATELET COUNT 184 X10'3 (140-440); RED BLOOD COUNT 4.93 X10'6 (4.20-5.60); RED CELL DISTRIBUTION WIDTH 17.2 % (11.5-14.5)
[2024-04-10 08:18] LABS: ANION GAP 5 (8-16); BLOOD UREA NITROGEN 31 MG/DL (7-18); CALCIUM 8.3 MG/DL (8.5-10.1); CHLORIDE 109 MMOL/L (99-107); GLUCOSE 147 MG/DL (70-104); MAGNESIUM 2.3 MG/DL (1.5-2.4); PHOSPHORUS 3.6 MG/DL (2.3-4.5); POTASSIUM 4.8 MMOL/L (3.5-5.1); PREALBUMIN 24.6 MG/DL (19-36); SODIUM 141 MMOL/L (135-145); TOTAL CARBON DIOXIDE 26.6 MMOL/L (24-32); eCRCL 102 ML/MIN; eGFR > 90 ML/MIN
[2024-04-10] MEDS: ziprasidone IM 20mg inj **IM only IM PRN ×2 (09:21→21:23)
[2024-04-10] MEDS: metoprolol tartrate 1mg/ml inj IV STA (18:44)
[2024-04-10] MEDS: metoprolol tartrate 1mg/ml inj IV SCH (20:06)
[2024-04-10] MEDS: labetalol 20mg/4ml (5mg/ml) syringe IV PRN (21:03)
[2024-04-10] MEDS: dexmedetomidin/NS 400mcg/100ml 100 ML IV SCH (21:43)
[2024-04-11] VITALS (40 sets, daily range): BP systolic 107–180; BP diastolic 64–110; PULSE 47–100; RESP 12–36; O2SAT 88–100
[2024-04-11 03:35] LABS: BASOPHILS % (AUTO) 0.4 % (0-1); EOSINOPHILS % (AUTO) 0.1 % (0-6); HEMATOCRIT 40.6 % (35.0-45.0); HEMOGLOBIN 13.2 g/dl (12.0-16.0); LYMPHOCYTES # (AUTO) 1.1 X10'3 (1.1-4.8); LYMPHOCYTES % (AUTO) 9.8 % (21-51); MEAN CORPUSCULAR HEMOGLOBIN 26.7 PG (27.0-31.0); MEAN CORPUSCULAR HGB CONC 32.5 g/dL (33.0-36.5); MEAN CORPUSCULAR VOLUME 82.3 FL (78-98); MEAN PLATELET VOLUME 9.7 FL (7.4-10.4); MONOCYTES # (AUTO) 0.7 X10'3 (0-0.9); MONOCYTES % (AUTO) 6.2 % (2-12); NEUTROPHILS # (AUTO) 9.3 X10'3 (1.8-7.7); NEUTROPHILS % (AUTO) 83.5 % (42-75); PLATELET COUNT 190 X10'3 (140-440); RED BLOOD COUNT 4.93 X10'6 (4.20-5.60); RED CELL DISTRIBUTION WIDTH 17.6 % (11.5-14.5); WHITE BLOOD COUNT 11.1 X10'3 (4.5-11.0)
[2024-04-11 03:41] LABS: ALBUMIN 2.7 G/DL (3.4-5.0); ANION GAP 4 (8-16); BLOOD UREA NITROGEN 30 MG/DL (7-18); CALCIUM 8.4 MG/DL (8.5-10.1); CHLORIDE 109 MMOL/L (99-107); GLUCOSE 154 MG/DL (70-104); MAGNESIUM 2.4 MG/DL (1.5-2.4); PHOSPHORUS 3.8 MG/DL (2.3-4.5); SODIUM 139 MMOL/L (135-145); TOTAL CARBON DIOXIDE 26.5 MMOL/L (24-32); eCRCL 102 ML/MIN; eGFR > 90 ML/MIN
[2024-04-12] VITALS (38 sets, daily range): BP systolic 123–232; BP diastolic 63–128; PULSE 48–94; RESP 12–29; O2SAT 85–100
[2024-04-12] MEDS: morphine 4 MG/ML inj SYRINge IV PRN (02:42)
[2024-04-12] MEDS: ipratropium/albuterol 3ml nebule NEB SCH (11:02)
[2024-04-12] MEDS ORDERED: ALPRAZolam 0.5mg tablet PO PRN (11:10)
[2024-04-12 11:31] LABS: ALBUMIN 2.7 G/DL (3.4-5.0); ANION GAP 8 (8-16); BLOOD UREA NITROGEN 35 MG/DL (7-18); BUN/CREATININE RATIO 71.4 (10.0-20.0); CHLORIDE 106 MMOL/L (99-107); CREATININE 0.49 MG/DL (0.40-0.90); GLUCOSE 142 MG/DL (70-104); PHOSPHORUS 3.8 MG/DL (2.3-4.5); POTASSIUM 4.7 MMOL/L (3.5-5.1); SODIUM 142 MMOL/L (135-145); TOTAL CARBON DIOXIDE 28.4 MMOL/L (24-32); eCRCL 104 ML/MIN; eGFR > 90 ML/MIN
[2024-04-12 11:34] LABS: BASOPHILS % (AUTO) 0.3 % (0-1); EOSINOPHILS % (AUTO) 0 % (0-6); HEMATOCRIT 41.1 % (35.0-45.0); HEMOGLOBIN 13.3 g/dl (12.0-16.0); LYMPHOCYTES # (AUTO) 0.7 X10'3 (1.1-4.8); LYMPHOCYTES % (AUTO) 6.4 % (21-51); MEAN CORPUSCULAR HGB CONC 32.4 g/dL (33.0-36.5); MEAN CORPUSCULAR VOLUME 83.3 FL (78-98); MEAN PLATELET VOLUME 10.1 FL (7.4-10.4); MONOCYTES # (AUTO) 0.6 X10'3 (0-0.9); NEUTROPHILS % (AUTO) 87.3 % (42-75); PLATELET COUNT 198 X10'3 (140-440); RED BLOOD COUNT 4.94 X10'6 (4.20-5.60); RED CELL DISTRIBUTION WIDTH 16.6 % (11.5-14.5); WHITE BLOOD COUNT 10.3 X10'3 (4.5-11.0)
[2024-04-12] MEDS: haloperidol lactate 5mg/ml inj IM PRN (17:19)
[2024-04-12] MEDS: lactose-reduced food (Ensure Enlive) - 237ml bottle PO SCH (18:50)
[2024-04-13] VITALS (35 sets, daily range): BP systolic 134–184; BP diastolic 64–108; PULSE 47–120; RESP 12–24; O2SAT 91–100
[2024-04-13 02:42] LABS: BASOPHILS % (AUTO) 0.3 % (0-1); EOSINOPHILS % (AUTO) 0.1 % (0-6); HEMATOCRIT 39.1 % (35.0-45.0); HEMOGLOBIN 12.5 g/dl (12.0-16.0); LYMPHOCYTES # (AUTO) 1.6 X10'3 (1.1-4.8); LYMPHOCYTES % (AUTO) 15.4 % (21-51); MEAN CORPUSCULAR HEMOGLOBIN 26.6 PG (27.0-31.0); MEAN CORPUSCULAR VOLUME 83.1 FL (78-98); MEAN PLATELET VOLUME 9.2 FL (7.4-10.4); MONOCYTES % (AUTO) 9.6 % (2-12); NEUTROPHILS # (AUTO) 7.8 X10'3 (1.8-7.7); NEUTROPHILS % (AUTO) 74.6 % (42-75); PLATELET COUNT 185 X10'3 (140-440); WHITE BLOOD COUNT 10.5 X10'3 (4.5-11.0)
[2024-04-13 02:54] LABS: ALBUMIN 2.7 G/DL (3.4-5.0); ANION GAP 8 (8-16); BLOOD UREA NITROGEN 33 MG/DL (7-18); CALCIUM 8.1 MG/DL (8.5-10.1); CHLORIDE 106 MMOL/L (99-107); GLUCOSE 99 MG/DL (70-104); MAGNESIUM 2.2 MG/DL (1.5-2.4); PHOSPHORUS 3.6 MG/DL (2.3-4.5); POTASSIUM 4.2 MMOL/L (3.5-5.1); PREALBUMIN 19.1 MG/DL (19-36); SODIUM 142 MMOL/L (135-145); TOTAL CARBON DIOXIDE 28.5 MMOL/L (24-32); eCRCL 85 ML/MIN; eGFR > 90 ML/MIN
[2024-04-13] MEDS: methylPREDNISolone sod succ 125mg/2ml vial IV SCH (07:51)
[2024-04-13] MEDS: minoxidil 2.5mg tablet PO SCH (12:09)
[2024-04-13] MEDS: acetaminophen 325mg tablet PO PRN (16:25)
[2024-04-13] MEDS: minoxidil 2.5mg tablet PO ONE (17:25)
[2024-04-14] VITALS (26 sets, daily range): BP systolic 129–169; BP diastolic 63–96; PULSE 56–98; RESP 11–20; TEMP 97.3–98.8; O2SAT 93–100
[2024-04-14 06:56] LABS: BASOPHILS % (AUTO) 0.3 % (0-1); EOSINOPHILS % (AUTO) 0.1 % (0-6); HEMATOCRIT 45.9 % (35.0-45.0); LYMPHOCYTES # (AUTO) 1.7 X10'3 (1.1-4.8); LYMPHOCYTES % (AUTO) 9.9 % (21-51); MEAN CORPUSCULAR HEMOGLOBIN 26.9 PG (27.0-31.0); MEAN CORPUSCULAR HGB CONC 32.7 g/dL (33.0-36.5); MEAN CORPUSCULAR VOLUME 82.3 FL (78-98); MEAN PLATELET VOLUME 9.7 FL (7.4-10.4); MONOCYTES # (AUTO) 1.6 X10'3 (0-0.9); MONOCYTES % (AUTO) 9.2 % (2-12); NEUTROPHILS # (AUTO) 13.8 X10'3 (1.8-7.7); NEUTROPHILS % (AUTO) 80.5 % (42-75); PLATELET COUNT 187 X10'3 (140-440); RED BLOOD COUNT 5.57 X10'6 (4.20-5.60); RED CELL DISTRIBUTION WIDTH 17.2 % (11.5-14.5); WHITE BLOOD COUNT 17.1 X10'3 (4.5-11.0)
[2024-04-14 08:20] LABS: ANION GAP 8 (8-16); BLOOD UREA NITROGEN 19 MG/DL (7-18); BUN/CREATININE RATIO 38.8 (10.0-20.0); CALCIUM 8.3 MG/DL (8.5-10.1); CHLORIDE 102 MMOL/L (99-107); CREATININE 0.49 MG/DL (0.40-0.90); GLUCOSE 96 MG/DL (70-104); MAGNESIUM 1.9 MG/DL (1.5-2.4); PHOSPHORUS 2.8 MG/DL (2.3-4.5); POTASSIUM 3.3 MMOL/L (3.5-5.1); SODIUM 139 MMOL/L (135-145); TOTAL CARBON DIOXIDE 29.4 MMOL/L (24-32); TRIGLYCERIDES 119 MG/DL (20-135); eCRCL 104 ML/MIN; eGFR > 90 ML/MIN
[2024-04-14] MEDS ORDERED: magnesium sulf-water 4G/100mL 100 ML IV PRN (14:10)
[2024-04-14] MEDS ORDERED: magnesium sulf-water 2g/50mL 50 ML IV PRN (14:10)
[2024-04-14] MEDS ORDERED: potassium Cl 20 mEq SR tablet PO PRN (14:10)
[2024-04-14] MEDS ORDERED: potassium Cl 40MEQ/1/2NS 520ml 520 ML IV PRN (14:10)
[2024-04-14] MEDS: K and/or MAG REPLACEMENT MC SCH (19:26)
[2024-04-14] MEDS: methylPREDNISolone sod succ 125mg/2ml vial IV SCH (19:59)
[2024-04-14] MEDS: potassium Cl 20 mEq SR tablet PO PRN (20:01)
[2024-04-15] VITALS (19 sets, daily range): BP systolic 121–159; BP diastolic 66–100; PULSE 63–115; RESP 13–20; TEMP 96.9–98.3; O2SAT 91–98
[2024-04-15 05:32] LABS: BASOPHILS % (AUTO) 0.2 % (0-1); EOSINOPHILS % (AUTO) 0 % (0-6); HEMATOCRIT 43.9 % (35.0-45.0); HEMOGLOBIN 14.5 g/dl (12.0-16.0); LYMPHOCYTES % (AUTO) 8.9 % (21-51); MEAN CORPUSCULAR HEMOGLOBIN 27.1 PG (27.0-31.0); MEAN CORPUSCULAR VOLUME 82.2 FL (78-98); MEAN PLATELET VOLUME 9.9 FL (7.4-10.4); MONOCYTES # (AUTO) 0.6 X10'3 (0-0.9); MONOCYTES % (AUTO) 5.7 % (2-12); NEUTROPHILS # (AUTO) 9.1 X10'3 (1.8-7.7); NEUTROPHILS % (AUTO) 85.2 % (42-75); PLATELET COUNT 210 X10'3 (140-440); RED BLOOD COUNT 5.34 X10'6 (4.20-5.60); RED CELL DISTRIBUTION WIDTH 16.5 % (11.5-14.5); WHITE BLOOD COUNT 10.7 X10'3 (4.5-11.0)
[2024-04-15 05:47] LABS: ALBUMIN 2.9 G/DL (3.4-5.0); ANION GAP 8 (8-16); BLOOD UREA NITROGEN 18 MG/DL (7-18); CALCIUM 8.6 MG/DL (8.5-10.1); CHLORIDE 101 MMOL/L (99-107); CREATININE 0.45 MG/DL (0.40-0.90); GLUCOSE 120 MG/DL (70-104); MAGNESIUM 1.8 MG/DL (1.5-2.4); PHOSPHORUS 2.8 MG/DL (2.3-4.5); POTASSIUM 3.7 MMOL/L (3.5-5.1); SODIUM 137 MMOL/L (135-145); eCRCL 113 ML/MIN; eGFR > 90 ML/MIN
[2024-04-15] MEDS: CefTRIAXone 2gm/D5W 50ml BAG 50 ML IV SCH (10:10)
[2024-04-15] MEDS: azithromycin/NS 500mg/250ml 250 ML IV SCH (21:14)
[2024-04-16 02:00] VITALS: BP 136/71; PULSE 90; RESP 16; TEMP 97.8; O2SAT 98
[2024-04-16 06:28] LABS: BILIRUBIN,URINE NEGATIVE (Neg); CLARITY,URINE CLOUDY (Clear); COLOR,URINE YELLOW (Yellow); GLUCOSE, URINE 100 mg/dl (Neg); KETONES,URINE NEGATIVE (Neg); LEUKOCYTE ESTERASE ,URINE TRACE (Neg); NITRITES, URINE NEGATIVE (Neg); OCCULT BLOOD,URINE LARGE (Neg); PH,URINE 7.5 (4.8-8.0); PROTEIN,URINE 100 mg/dl (Neg)
[2024-04-16 06:47] LABS: UA COLLECTION TYPE FOLEY CATH
[2024-04-16 06:50] LABS: BACTERIA,URINE FEW /HPF (Neg); MUCUS STRANDS NONE SEEN /LPF (Neg); RBC,URINE TNTC /HPF (0-2); SQUAMOUS EPITHELIAL CELL,UR FEW /LPF (FEW)
[2024-04-16 07:00] VITALS: BP 137/61; PULSE 59; RESP 16; TEMP 98.2; O2SAT 98
[2024-04-16 07:44] VITALS: PULSE 71; RESP 18; O2SAT 96
[2024-04-16 07:52] VITALS: PULSE 67; RESP 20
[2024-04-16 08:00] VITALS: RESP 16; O2SAT 98
[2024-04-16] MEDS: normal saline 1000ml 1,000 ML IV SCH (09:55)
[2024-04-16 10:25] LABS: ALBUMIN 2.7 G/DL (3.4-5.0); ANION GAP 8 (8-16); BLOOD UREA NITROGEN 16 MG/DL (7-18); CALCIUM 8.5 MG/DL (8.5-10.1); CHLORIDE 102 MMOL/L (99-107); GLUCOSE 126 MG/DL (70-104); PHOSPHORUS 2.5 MG/DL (2.3-4.5); SODIUM 136 MMOL/L (135-145); TOTAL CARBON DIOXIDE 26.5 MMOL/L (24-32); eCRCL 127 ML/MIN; eGFR > 90 ML/MIN
[2024-04-16 10:32] LABS: POTASSIUM 3.9 MMOL/L (3.5-5.1)
[2024-04-16 10:36] LABS: BASOPHILS % (AUTO) 0.3 % (0-1); LYMPHOCYTES # (AUTO) 1.1 X10'3 (1.1-4.8); MEAN PLATELET VOLUME 9.5 FL (7.4-10.4); MONOCYTES # (AUTO) 0.7 X10'3 (0-0.9); RED CELL DISTRIBUTION WIDTH 16.5 % (11.5-14.5)
[2024-04-16 10:38] LABS: EOSINOPHILS % (AUTO) 0 % (0-6); HEMATOCRIT 38.7 % (35.0-45.0); HEMOGLOBIN 12.4 g/dl (12.0-16.0); LYMPHOCYTES % (AUTO) 8.9 % (21-51); MEAN CORPUSCULAR HEMOGLOBIN 26.5 PG (27.0-31.0); MEAN CORPUSCULAR HGB CONC 32.2 g/dL (33.0-36.5); MEAN CORPUSCULAR VOLUME 82.3 FL (78-98); MONOCYTES % (AUTO) 5.5 % (2-12); NEUTROPHILS # (AUTO) 10.2 X10'3 (1.8-7.7); NEUTROPHILS % (AUTO) 85.3 % (42-75); PLATELET COUNT 178 X10'3 (140-440); WHITE BLOOD COUNT 11.9 X10'3 (4.5-11.0)
[2024-04-16 11:00] VITALS: BP 145/70; PULSE 82; RESP 18; TEMP 98.5; O2SAT 97
[2024-04-16] MEDS: metoprolol succinate 25mg (24-HOUR) SR. Tablet PO ONE (15:00)
[2024-04-17] MEDS ORDERED: metoprolol succinate 25mg (24-HOUR) SR. Tablet PO SCH (08:00)
== END 2024-04-16 19:00 | disposition left against medical advice (07) | DRG 208 ==
LOC: ER 20:24 → ED HOLD 04-06 01:15 → CICU 2S 04-06 02:45 → PCU 3S 04-14 11:47
PROVIDERS: ADMIT Surgery; ATTEND Surgery
PROC: 5A1935Z Respiratory Ventilation, Less than 24 Consecutive Hours (ICD-10-PCS; 2024-04-06)
PROC: 0BH17EZ Insertion of Endotracheal Airway into Trachea, Via Natural or Artificial Opening (ICD-10-PCS; 2024-04-06)
PROC: 5A09357 Assistance with Respiratory Ventilation, Less than 24 Consecutive Hours, Continuous Positive Airway Pressure (ICD-10-PCS; 2024-04-06)
PROC: 5A1945Z Respiratory Ventilation, 24-96 Consecutive Hours (ICD-10-PCS; principal; 2024-04-07)
PROC: 0BH17EZ Insertion of Endotracheal Airway into Trachea, Via Natural or Artificial Opening (ICD-10-PCS; 2024-04-07)
PROC: 5A09357 Assistance with Respiratory Ventilation, Less than 24 Consecutive Hours, Continuous Positive Airway Pressure (ICD-10-PCS; 2024-04-09)
PROC: 5A09357 Assistance with Respiratory Ventilation, Less than 24 Consecutive Hours, Continuous Positive Airway Pressure (ICD-10-PCS; 2024-04-10)
PROC: 5A09357 Assistance with Respiratory Ventilation, Less than 24 Consecutive Hours, Continuous Positive Airway Pressure (ICD-10-PCS; 2024-04-11)
PROC: 5A09357 Assistance with Respiratory Ventilation, Less than 24 Consecutive Hours, Continuous Positive Airway Pressure (ICD-10-PCS; 2024-04-12)
PROC: 5A09357 Assistance with Respiratory Ventilation, Less than 24 Consecutive Hours, Continuous Positive Airway Pressure (ICD-10-PCS; 2024-04-13)
DX: J44.1 Chronic obstructive pulmonary disease with (acute) exacerbation (principal); J96.01 Acute respiratory failure with hypoxia; G93.41 Metabolic encephalopathy; J69.0 Pneumonitis due to inhalation of food and vomit; N17.0 Acute kidney failure with tubular necrosis; J96.02 Acute respiratory failure with hypercapnia; J98.11 Atelectasis; E87.20 Acidosis, unspecified; N39.0 Urinary tract infection, site not specified; J44.0 Chronic obstructive pulmonary disease with (acute) lower respiratory infection; I12.9 Hypertensive chronic kidney disease with stage 1 through stage 4 chronic kidney disease, or unspecified chronic kidney disease; N18.9 Chronic kidney disease, unspecified; Z20.822 Contact with and (suspected) exposure to COVID-19; R73.03 Prediabetes; F17.200 Nicotine dependence, unspecified, uncomplicated; R73.01 Impaired fasting glucose; Z66 Do not resuscitate; Z53.29 Procedure and treatment not carried out because of patient's decision for other reasons; B19.20 Unspecified viral hepatitis C without hepatic coma; G89.29 Other chronic pain; R45.1 Restlessness and agitation; E87.6 Hypokalemia; E83.51 Hypocalcemia; E88.09 Other disorders of plasma-protein metabolism, not elsewhere classified; Z78.1 Physical restraint status; Z90.710 Acquired absence of both cervix and uterus
CPT/HCPCS: 36415; 36600; 70450; 71045; 74018; 76937; 80048; 80053; 80305; 81001; 82803; 82948; 83036; 83735; 84100; 84134; 84145; 84478; 84484; 85018; 85025; 87070; 87081; 87088; 87811; 92508; 92616; 93005; 94002; 94003; 94640; 94660; 94668; 94760; 94799; 96365; 96375; 97116; 97161; 97530; 97535; 99291; A4615; A4620; A4624; A4628; A5200; A6196; A6209; A6212; A6213; A6250; A6253; A6258; A6446; A6449; A7015; C1751; C1758; G0378; J0360; J0456; J0696; J1630; J1650; J2060; J2270; J2405; J2704; J2919; J3010; J3486; J3490; J7030; J7120

== ENCOUNTER 2024-04-20 12:05 | Emergency (ER) | payer MEDICARE, MEDICAID ==
[~2024-04-20] VITALS: Ht 170.2 cm; Wt 52.7 kg
[~2024-04-20 12:05] MED LIST changes: +MED LIST UNOBTAINABL
[2024-04-20 12:08] VITALS: TEMP 99.8
[2024-04-20] MEDS ORDERED: DOXY-1 PO (15:03)
[2024-04-20] MEDS ORDERED: SILV20CR13 TOP (15:03)
[2024-04-20] MEDS: silver sulfadiazine cream 50gm TP ONE (15:14)
[2024-04-20 15:35] VITALS: BP 109/67; PULSE 114; RESP 16; O2SAT 91
== END 2024-04-20 15:39 | disposition home or self-care (01) ==
LOC: ER 12:06
DX: S90.821A Blister (nonthermal), right foot, initial encounter (principal); S90.822A Blister (nonthermal), left foot, initial encounter; J45.909 Unspecified asthma, uncomplicated; J44.9 Chronic obstructive pulmonary disease, unspecified; G89.29 Other chronic pain; Z79.1 Long term (current) use of non-steroidal anti-inflammatories (NSAID); Z79.51 Long term (current) use of inhaled steroids; Z79.899 Other long term (current) drug therapy; Z90.710 Acquired absence of both cervix and uterus; Z98.890 Other specified postprocedural states; Z72.89 Other problems related to lifestyle; Z85.89 Personal history of malignant neoplasm of other organs and systems; X58.XXXA Exposure to other specified factors, initial encounter; Y93.89 Activity, other specified; Y92.89 Other specified places as the place of occurrence of the external cause; Y99.8 Other external cause status
CPT/HCPCS: 99283; A6402; A6449

== ENCOUNTER 2024-06-29 16:20 | Inpatient (IN) | payer MEDICARE, MEDICAID ==
[~2024-06-29] VITALS: Ht 170.2 cm; Wt 72.3 kg
[~2024-06-29 16:20] MED LIST changes: +SILV20CR13 TOP
[2024-06-29] MEDS ORDERED: VANCOMYCIN 1GM 200ML H20 (PEG) 200 ML IV ONE (16:45)
[2024-06-29] MEDS: piperacillin/tazo 4.5gm/100ml 100 ML IV SCH (17:24)
[2024-06-29 17:25] LABS: BASOPHILS # (AUTO) 0.1 X10'3 (0-0.2); BASOPHILS % (AUTO) 0.4 % (0-1); EOSINOPHILS # (AUTO) 0.2 X10'3 (0-0.9); EOSINOPHILS % (AUTO) 1.9 % (0-6); HEMATOCRIT 43.4 % (35.0-45.0); HEMOGLOBIN 14.2 g/dl (12.0-16.0); LYMPHOCYTES # (AUTO) 2.3 X10'3 (1.1-4.8); LYMPHOCYTES % (AUTO) 17.1 % (21-51); MEAN CORPUSCULAR HGB CONC 32.8 g/dL (33.0-36.5); MEAN CORPUSCULAR VOLUME 82.2 FL (78-98); MEAN PLATELET VOLUME 9.2 FL (7.4-10.4); MONOCYTES # (AUTO) 0.7 X10'3 (0-0.9); MONOCYTES % (AUTO) 5.4 % (2-12); NEUTROPHILS # (AUTO) 9.9 X10'3 (1.8-7.7); NEUTROPHILS % (AUTO) 75.2 % (42-75); PLATELET COUNT 295 X10'3 (140-440); RED BLOOD COUNT 5.28 X10'6 (4.20-5.60); RED CELL DISTRIBUTION WIDTH 15.6 % (11.5-14.5); WHITE BLOOD COUNT 13.2 X10'3 (4.5-11.0)
[2024-06-29] MEDS: bacitracin 15gm ointment TP ONE (17:30)
[2024-06-29] MEDS: TETanus/Pertussis (Acell)/Diphther VAC/PF (Tdap-Adult) 0.5ml syringe IMVAC ONE (17:31)
[2024-06-29 17:34] LABS: ALBUMIN 3.6 G/DL (3.4-5.0); ANION GAP 8 (8-16); BLOOD UREA NITROGEN 13 MG/DL (7-18); BUN/CREATININE RATIO 14.4 (10.0-20.0); CALCIUM 8.8 MG/DL (8.5-10.1); CHLORIDE 103 MMOL/L (99-107); GLUCOSE 132 MG/DL (70-104); POTASSIUM 3.5 MMOL/L (3.5-5.1); SODIUM 138 MMOL/L (135-145); TOTAL CARBON DIOXIDE 26.7 MMOL/L (24-32); eCRCL 57 ML/MIN; eGFR 62 ML/MIN
[2024-06-29] MEDS ORDERED: mag hydrox/Alum hydrox/simeth 30ml oral suspension PO PRN (17:55)
[2024-06-29] MEDS ORDERED: magnesium Cl slow-release 64mg tablet PO PRN (17:55)
[2024-06-29] MEDS ORDERED: HYDROmorphone inj. 0.5 MG/0.5 ML DISP.SYRIN IV PRN (17:55)
[2024-06-29] MEDS ORDERED: potassium Cl 20 mEq SR tablet PO PRN ×2 (17:55)
[2024-06-29] MEDS ORDERED: acetaminophen 325mg tablet PO PRN (17:55)
[2024-06-29] MEDS ORDERED: magnesium hydroxide 30ml (MOM) UD suspension PO PRN (17:55)
[2024-06-29] MEDS ORDERED: ondansetron/PF 4mg/2ml inj IV PRN (17:55)
[2024-06-29] MEDS ORDERED: morphine 2 MG/ML inj. syringe IV PRN (17:55)
[2024-06-29] MEDS ORDERED: magnesium sulf-water 2g/50mL 50 ML IV PRN (17:55)
[2024-06-29] MEDS ORDERED: VANCOMYCIN 1GM 200ML H20 (PEG) 200 ML IV SCH ×2 (18:00→22:00)
[2024-06-29] MEDS ORDERED: piperacillin/tazo 3.375gm/50ml 50 ML IV SCH (18:20)
[2024-06-29] MEDS: normal saline 1000ml 1,000 ML IV ONE (18:45)
[2024-06-29 19:06] LABS: PROTHROMBIN TIME 10.7 SECONDS (9.0-12.0)
[2024-06-29 19:12] LABS: APTT 33 SECONDS (22-32)
[2024-06-29] MEDS: VANCOMYCIN 1GM 200ML H20 (PEG) 200 ML IV SCH (19:17)
[2024-06-29] MEDS: docusate sod 100mg capsule PO SCH (19:19)
[2024-06-29] MEDS ORDERED: GABA300C PO (19:51)
[2024-06-29 19:54] VITALS: PULSE 92; O2SAT 96
[2024-06-29] MEDS: HYDROcodone/acetaminophen 5mg/325mg tablet PO PRN (19:55)
[2024-06-29] MEDS ORDERED: piperacillin/tazo 4.5gm/100ml 100 ML IV SCH (20:00)
[2024-06-29 20:20] VITALS: BP 139/89; PULSE 94; RESP 16; TEMP 98.1; O2SAT 95
[2024-06-29] MEDS: heparin, porcine 5000 units/ml vial SQ SCH (20:44)
[2024-06-29 22:00] VITALS: BP 157/90; PULSE 95; RESP 18; TEMP 98.2; O2SAT 93
[2024-06-29] MEDS: normal saline 1000ml 1,000 ML IV SCH (23:38)
[2024-06-29] MEDS: Melatonin 3mg tablet PO SCH (23:49)
[2024-06-29] MEDS: calcium carbonate 500mg chew tablet PO PRN (23:49)
[2024-06-30] VITALS (9 sets, daily range): BP systolic 136–148; BP diastolic 58–66; PULSE 71–89; RESP 16–18; TEMP 97.9; O2SAT 90–98
[2024-06-30 00:09] LABS: BILIRUBIN,URINE NEGATIVE (Neg); CLARITY,URINE CLEAR (Clear); COLOR,URINE YELLOW (Yellow); GLUCOSE, URINE NEGATIVE (Neg); KETONES,URINE NEGATIVE (Neg); LEUKOCYTE ESTERASE ,URINE NEGATIVE (Neg); NITRITES, URINE NEGATIVE (Neg); OCCULT BLOOD,URINE NEGATIVE (Neg); PROTEIN,URINE NEGATIVE (Neg)
[2024-06-30 00:17] LABS: UA COLLECTION TYPE NON-SPECIFIED
[2024-06-30] MEDS: ipratropium/albuterol 3ml nebule NEB PRN (04:31)
[2024-06-30] MEDS ORDERED: albuterol 2.5 MG/3 ML nebule NEB PRN (07:30)
[2024-06-30 08:00] LABS: BASOPHILS # (AUTO) 0.1 X10'3 (0-0.2); BASOPHILS % (AUTO) 1.1 % (0-1); EOSINOPHILS # (AUTO) 0.3 X10'3 (0-0.9); EOSINOPHILS % (AUTO) 3.8 % (0-6); HEMATOCRIT 37.5 % (35.0-45.0); HEMOGLOBIN 12.3 g/dl (12.0-16.0); LYMPHOCYTES # (AUTO) 2.3 X10'3 (1.1-4.8); LYMPHOCYTES % (AUTO) 26.3 % (21-51); MEAN CORPUSCULAR HEMOGLOBIN 26.9 PG (27.0-31.0); MEAN CORPUSCULAR HGB CONC 32.9 g/dL (33.0-36.5); MEAN CORPUSCULAR VOLUME 81.6 FL (78-98); MEAN PLATELET VOLUME 8.8 FL (7.4-10.4); MONOCYTES # (AUTO) 0.6 X10'3 (0-0.9); MONOCYTES % (AUTO) 6.6 % (2-12); NEUTROPHILS # (AUTO) 5.3 X10'3 (1.8-7.7); NEUTROPHILS % (AUTO) 62.2 % (42-75); PLATELET COUNT 225 X10'3 (140-440); RED CELL DISTRIBUTION WIDTH 15.5 % (11.5-14.5); WHITE BLOOD COUNT 8.6 X10'3 (4.5-11.0)
[2024-06-30] MEDS: non-formulary drug (Fluticasone/Umeclidin/Vilanter (Trelegy Ellipta 100-62.5-25) 1 PUFFS) IH SCH (08:00)
[2024-06-30] MEDS: gabapentin 300mg capsule PO SCH (08:22)
[2024-06-30 08:28] LABS: ALANINE AMINOTRANSFERASE 28 U/L (12-78); ALBUMIN 2.8 G/DL (3.4-5.0); ALBUMIN/GLOBULIN RATIO 0.8 (1.1-1.5); ALKALINE PHOSPHATASE 85 IU/L (46-116); ANION GAP 7 (8-16); BILIRUBIN,TOTAL 0.5 MG/DL (0.1-1.0); BLOOD UREA NITROGEN 12 MG/DL (7-18); BUN/CREATININE RATIO 15.4 (10.0-20.0); CALCIUM 8.4 MG/DL (8.5-10.1); CHLORIDE 108 MMOL/L (99-107); CREATININE 0.78 MG/DL (0.40-0.90); GLUCOSE 95 MG/DL (70-104); SODIUM 139 MMOL/L (135-145); TOTAL CARBON DIOXIDE 23.8 MMOL/L (24-32); TOTAL PROTEIN 6.4 G/DL (6.4-8.2); eCRCL 65 ML/MIN; eGFR 73 ML/MIN
[2024-06-30 08:29] LABS: ASPARTATE AMINO TRANSFERASE 37 U/L (10-37); POTASSIUM 4.5 MMOL/L (3.5-5.1)
[2024-06-30] MEDS: VANCOMYCIN 1GM 200ML H20 (PEG) 200 ML IV SCH (08:48)
[2024-06-30] MEDS: ceFAZolin/D5W- 1GM premix 50 ML IV SCH (16:04)
[2024-06-30] MEDS ORDERED: Melatonin 3mg tablet PO SCH (21:00)
[2024-07-01 06:00] VITALS: BP 151/68; PULSE 65; RESP 17; TEMP 98; O2SAT 96
[2024-07-01 07:21] LABS: ALANINE AMINOTRANSFERASE 30 U/L (12-78); ALBUMIN/GLOBULIN RATIO 0.8 (1.1-1.5); ALKALINE PHOSPHATASE 93 IU/L (46-116); ANION GAP 9 (8-16); ASPARTATE AMINO TRANSFERASE 36 U/L (10-37); BILIRUBIN,TOTAL 0.4 MG/DL (0.1-1.0); BLOOD UREA NITROGEN 10 MG/DL (7-18); BUN/CREATININE RATIO 13.2 (10.0-20.0); CALCIUM 8.4 MG/DL (8.5-10.1); CHLORIDE 107 MMOL/L (99-107); CREATININE 0.76 MG/DL (0.40-0.90); GLUCOSE 91 MG/DL (70-104); POTASSIUM 4.4 MMOL/L (3.5-5.1); SODIUM 141 MMOL/L (135-145); TOTAL CARBON DIOXIDE 24.8 MMOL/L (24-32); TOTAL PROTEIN 6.6 G/DL (6.4-8.2); eCRCL 67 ML/MIN; eGFR 75 ML/MIN
[2024-07-01] MEDS ORDERED: VANCOMYCIN LEVEL IV ONE (07:30)
[2024-07-01 08:00] VITALS: RESP 17; O2SAT 96
[2024-07-01 08:41] VITALS: PULSE 80; RESP 18; O2SAT 95
[2024-07-01 08:58] VITALS: RESP 16
[2024-07-01 11:03] LABS: BASOPHILS # (AUTO) 0.1 X10'3 (0-0.2); EOSINOPHILS # (AUTO) 0.4 X10'3 (0-0.9); EOSINOPHILS % (AUTO) 5.8 % (0-6); HEMATOCRIT 38.9 % (35.0-45.0); HEMOGLOBIN 12.9 g/dl (12.0-16.0); LYMPHOCYTES # (AUTO) 1.9 X10'3 (1.1-4.8); LYMPHOCYTES % (AUTO) 26.4 % (21-51); MEAN CORPUSCULAR HGB CONC 33.1 g/dL (33.0-36.5); MEAN CORPUSCULAR VOLUME 81.6 FL (78-98); MEAN PLATELET VOLUME 8.5 FL (7.4-10.4); MONOCYTES # (AUTO) 0.5 X10'3 (0-0.9); MONOCYTES % (AUTO) 7.3 % (2-12); NEUTROPHILS # (AUTO) 4.3 X10'3 (1.8-7.7); NEUTROPHILS % (AUTO) 59.5 % (42-75); PLATELET COUNT 284 X10'3 (140-440); RED BLOOD COUNT 4.76 X10'6 (4.20-5.60); RED CELL DISTRIBUTION WIDTH 15.1 % (11.5-14.5); WHITE BLOOD COUNT 7.3 X10'3 (4.5-11.0)
[2024-07-01] MEDS ORDERED: HYDR-3965 PO (12:06)
[2024-07-01] MEDS ORDERED: AMOX-580 PO (12:06)
== END 2024-07-01 12:50 | disposition home or self-care (01) | DRG 872 ==
LOC: ER 16:21 → ED HOLD 17:56 → ORTHO 4S 20:18
PROVIDERS: ADMIT Internal Medicine; ATTEND Internal Medicine
DX: A41.9 Sepsis, unspecified organism (principal); L03.114 Cellulitis of left upper limb; G89.29 Other chronic pain; F10.90 Alcohol use, unspecified, uncomplicated; M54.89 Other dorsalgia; J44.89 Other specified chronic obstructive pulmonary disease; Z90.710 Acquired absence of both cervix and uterus; Z79.899 Other long term (current) drug therapy
CPT/HCPCS: 36415; 71045; 80048; 80053; 81003; 83036; 83605; 83735; 84145; 85025; 85610; 85730; 87040; 87081; 90471; 90715; 94640; 94760; 96365; 99285; G0378; J0690; J1644; J2543; J3372; J7030

== ENCOUNTER 2024-09-02 10:15 | Emergency (ER) | payer MEDICARE, MEDICAID ==
[~2024-09-02] VITALS: Ht 170.2 cm; Wt 70.5 kg
[~2024-09-02 10:15] MED LIST changes: -ALBUTEROL; +GABA300C PO; -MED LIST UNOBTAINABL; -NICO-631 TD; -ROBDML PO; -SILV20CR13 TOP
[2024-09-02] MEDS: chlorhexidine gluc 4% **topical ** 120ml btl. TP ONE (11:36)
[2024-09-02] MEDS ORDERED: IBUP-864 PO (11:39)
[2024-09-02] MEDS ORDERED: AMOX-117 PO (11:39)
[2024-09-02 11:52] VITALS: BP 142/82; PULSE 85; RESP 15; TEMP 97.8; O2SAT 98
[2024-09-02] MEDS: CHLORHEXIDINE GLUCONATE 4% 15 ML topical sol TP ONE (11:52)
== END 2024-09-02 12:06 | disposition home or self-care (01) ==
LOC: ER 10:16
DX: S60.511A Abrasion of right hand, initial encounter (principal); L03.113 Cellulitis of right upper limb; J44.9 Chronic obstructive pulmonary disease, unspecified; Z79.899 Other long term (current) drug therapy; Z90.710 Acquired absence of both cervix and uterus; W54.0XXA Bitten by dog, initial encounter; Y93.89 Activity, other specified; Y92.89 Other specified places as the place of occurrence of the external cause; Y99.8 Other external cause status
CPT/HCPCS: 99283

== ENCOUNTER 2024-09-20 15:47 | Inpatient (IN) | payer MEDICARE, MEDICAID ==
[~2024-09-20] VITALS: Ht 170.2 cm; Wt 73.2 kg
[~2024-09-20 15:47] MED LIST changes: +IBUP-864 PO
[2024-09-20 16:46] LABS: BASOPHILS % (AUTO) 0.3 % (0-1); EOSINOPHILS % (AUTO) 0.3 % (0-6); HEMOGLOBIN 12.9 g/dl (12.0-16.0); LYMPHOCYTES # (AUTO) 1.4 X10'3 (1.1-4.8); LYMPHOCYTES % (AUTO) 9.8 % (21-51); MEAN CORPUSCULAR HEMOGLOBIN 25.8 PG (27.0-31.0); MEAN CORPUSCULAR HGB CONC 33.1 g/dL (33.0-36.5); MEAN PLATELET VOLUME 8.4 FL (7.4-10.4); MONOCYTES # (AUTO) 0.8 X10'3 (0-0.9); MONOCYTES % (AUTO) 5.8 % (2-12); NEUTROPHILS # (AUTO) 11.9 X10'3 (1.8-7.7); NEUTROPHILS % (AUTO) 83.8 % (42-75); PLATELET COUNT 386 X10'3 (140-440); RED CELL DISTRIBUTION WIDTH 15.8 % (11.5-14.5); WHITE BLOOD COUNT 14.2 X10'3 (4.5-11.0)
[2024-09-20 17:15] LABS: ALBUMIN 2.6 G/DL (3.4-5.0); ANION GAP 11 (8-16); BLOOD UREA NITROGEN 9 MG/DL (7-18); CALCIUM 8.7 MG/DL (8.5-10.1); CHLORIDE 99 MMOL/L (99-107); CREATININE 0.69 MG/DL (0.40-0.90); GLUCOSE 147 MG/DL (70-104); POTASSIUM 3.2 MMOL/L (3.5-5.1); PRO BRAIN NATRIURETIC PEPTIDE 432 PG/ML (0-125); SODIUM 135 MMOL/L (135-145); TOTAL CARBON DIOXIDE 25.4 MMOL/L (24-32); eCRCL 74 ML/MIN; eGFR 84 ML/MIN
[2024-09-20] MEDS: methylPREDNISolone sod succ 125mg/2ml vial IV ONE (18:46)
[2024-09-20] MEDS: albuterol 2.5 MG/3 ML nebule CONTNEB PRN (18:49)
[2024-09-20 18:56] VITALS: PULSE 103; RESP 24; O2SAT 93
[2024-09-20] MEDS: CefTRIAXone/D5W-Rocephin 1gm 50 ML IV ONE (19:19)
[2024-09-20] MEDS: azithromycin/NS 500mg/250ml 250 ML IV ONE (19:20)
[2024-09-20] MEDS: potassium Cl 20 mEq SR tablet PO STA (19:40)
[2024-09-20 19:59] VITALS: PULSE 113; RESP 22; O2SAT 93
[2024-09-20] MEDS ORDERED: ondansetron/PF 4mg/2ml inj IV PRN (22:30)
[2024-09-20] MEDS ORDERED: albuterol 2.5 MG/3 ML nebule NEB PRN (22:30)
[2024-09-20] MEDS ORDERED: magnesium sulf-water 2g/50mL 50 ML IV PRN (22:30)
[2024-09-20] MEDS ORDERED: magnesium Cl slow-release 64mg tablet PO PRN (22:30)
[2024-09-20] MEDS ORDERED: mag hydrox/Alum hydrox/simeth 30ml oral suspension PO PRN (22:30)
[2024-09-20] MEDS ORDERED: magnesium sulf-water 4G/100mL 100 ML IV PRN (22:30)
[2024-09-20] MEDS ORDERED: potassium Cl 20 mEq SR tablet PO PRN ×2 (22:30)
[2024-09-20] MEDS ORDERED: potassium Cl 40MEQ/1/2NS 520ml 520 ML IV PRN (22:30)
[2024-09-20] MEDS ORDERED: magnesium hydroxide 30ml (MOM) UD suspension PO PRN (22:30)
[2024-09-20] MEDS ORDERED: ipratropium/albuterol 3ml nebule NEB PRN (22:30)
[2024-09-20] MEDS: normal saline 1000ml 1,000 ML IV SCH (22:46)
[2024-09-20] MEDS ORDERED: IPRA3AMP31 NEB (23:21)
[2024-09-20] MEDS ORDERED: ALBU10.7 (23:21)
[2024-09-20] MEDS ORDERED: FURO20TA4 (23:21)
[2024-09-20 23:23] VITALS: PULSE 90; RESP 18; O2SAT 90
[2024-09-21] VITALS (10 sets, daily range): BP systolic 116–137; BP diastolic 54–80; PULSE 80–90; RESP 14–26; TEMP 97.3–98; O2SAT 90–96
[2024-09-21] MEDS: K and/or MAG REPLACEMENT MC SCH (08:00)
[2024-09-21 08:02] LABS: EOSINOPHILS % (AUTO) 0.1 % (0-6); HEMOGLOBIN 12.4 g/dl (12.0-16.0); MONOCYTES # (AUTO) 0.3 X10'3 (0-0.9)
[2024-09-21 08:05] LABS: BASOPHILS % (AUTO) 0.3 % (0-1); HEMATOCRIT 37.3 % (35.0-45.0); LYMPHOCYTES % (AUTO) 9.1 % (21-51); MEAN CORPUSCULAR HEMOGLOBIN 26.3 PG (27.0-31.0); MEAN CORPUSCULAR HGB CONC 33.2 g/dL (33.0-36.5); MEAN CORPUSCULAR VOLUME 79.3 FL (78-98); MEAN PLATELET VOLUME 8.9 FL (7.4-10.4); MONOCYTES % (AUTO) 2.4 % (2-12); NEUTROPHILS # (AUTO) 9.4 X10'3 (1.8-7.7); NEUTROPHILS % (AUTO) 88.1 % (42-75); PLATELET COUNT 229 X10'3 (140-440); RED CELL DISTRIBUTION WIDTH 16.1 % (11.5-14.5); WHITE BLOOD COUNT 10.7 X10'3 (4.5-11.0)
[2024-09-21] MEDS: docusate sod 100mg capsule PO SCH (08:20)
[2024-09-21] MEDS: gabapentin 300mg capsule PO SCH (08:21)
[2024-09-21 09:39] LABS: ANISOCYTOSIS 1+; PLATELET ESTIMATE NORMAL
[2024-09-21 09:40] LABS: BURR CELLS 1+; MICROCYTOSIS 1+
[2024-09-21 12:04] LABS: APTT 28 SECONDS (22-32); PROTHROMBIN TIME 10.9 SECONDS (9.0-12.0)
[2024-09-21 12:19] LABS: ALANINE AMINOTRANSFERASE 20 U/L (12-78); ALBUMIN 2.6 G/DL (3.4-5.0); ALBUMIN/GLOBULIN RATIO 0.5 (1.1-1.5); ALKALINE PHOSPHATASE 87 IU/L (46-116); ANION GAP 10 (8-16); ASPARTATE AMINO TRANSFERASE 12 U/L (10-37); BILIRUBIN,TOTAL 0.3 MG/DL (0.1-1.0); BLOOD UREA NITROGEN 13 MG/DL (7-18); BUN/CREATININE RATIO 18.8 (10.0-20.0); CALCIUM 9.1 MG/DL (8.5-10.1); CHLORIDE 104 MMOL/L (99-107); CREATININE 0.69 MG/DL (0.40-0.90); GLUCOSE 200 MG/DL (70-104); MAGNESIUM 2.2 MG/DL (1.5-2.4); PHOSPHORUS 3.6 MG/DL (2.3-4.5); POTASSIUM 3.8 MMOL/L (3.5-5.1); SODIUM 140 MMOL/L (135-145); TOTAL PROTEIN 7.4 G/DL (6.4-8.2); eCRCL 74 ML/MIN; eGFR 84 ML/MIN
[2024-09-21] MEDS: methylPREDNISolone sod succ 125mg/2ml vial IV SCH (13:15)
[2024-09-21] MEDS: furosemide 20 MG/2 ML vial IV ONE (13:15)
[2024-09-21] MEDS: ipratropium/albuterol 3ml nebule NEB SCH (19:00)
[2024-09-21] MEDS: CefTRIAXone 2gm/D5W 50ml BAG 50 ML IV SCH (19:50)
[2024-09-21] MEDS: enoxaparin 40mg/0.4ml syringe SQ SCH (19:51)
[2024-09-21] MEDS: azithromycin/NS 500mg/250ml 250 ML IV SCH (21:33)
[2024-09-21 22:24] LABS: BILIRUBIN,URINE NEGATIVE (Neg); CLARITY,URINE CLEAR (Clear); COLOR,URINE YELLOW (Yellow); GLUCOSE, URINE NEGATIVE (Neg); KETONES,URINE NEGATIVE (Neg); LEUKOCYTE ESTERASE ,URINE NEGATIVE (Neg); NITRITES, URINE NEGATIVE (Neg); OCCULT BLOOD,URINE NEGATIVE (Neg); PROTEIN,URINE NEGATIVE (Neg); UROBILINOGEN,URINE 0.2 E.U/dL (0.2-1.0)
[2024-09-21 22:30] LABS: UA COLLECTION TYPE CLN CATCH MIDSTREAM
[2024-09-21 22:47] LABS: URINE AMPHETAMINE SCREEN POSITIVE (Neg); URINE BARBITUATE SCREEN NEGATIVE (Neg); URINE BENZODIAZEPINES SCREEN NEGATIVE (Neg); URINE CANNABINOID SCREEN NEGATIVE (Neg); URINE COCAINE SCREEN NEGATIVE (Neg); URINE METHADONE SCREEN NEGATIVE (Neg); URINE OPIATE SCREEN NEGATIVE (Neg); URINE PHENCYCLIDINE SCREEN NEGATIVE (Neg)
[2024-09-22] VITALS (15 sets, daily range): BP systolic 102–136; BP diastolic 60–75; PULSE 80–93; RESP 15–28; TEMP 97.2–97.8; O2SAT 88–98
[2024-09-22 07:38] LABS: BASOPHILS % (AUTO) 0.3 % (0-1); EOSINOPHILS % (AUTO) 0 % (0-6); HEMATOCRIT 35.2 % (35.0-45.0); HEMOGLOBIN 11.6 g/dl (12.0-16.0); LYMPHOCYTES # (AUTO) 1.4 X10'3 (1.1-4.8); MEAN CORPUSCULAR HEMOGLOBIN 25.6 PG (27.0-31.0); MEAN CORPUSCULAR HGB CONC 32.9 g/dL (33.0-36.5); MEAN CORPUSCULAR VOLUME 77.9 FL (78-98); MEAN PLATELET VOLUME 8.6 FL (7.4-10.4); MONOCYTES # (AUTO) 0.6 X10'3 (0-0.9); MONOCYTES % (AUTO) 4.1 % (2-12); NEUTROPHILS # (AUTO) 11.6 X10'3 (1.8-7.7); NEUTROPHILS % (AUTO) 85.6 % (42-75); PLATELET COUNT 440 X10'3 (140-440); RED BLOOD COUNT 4.52 X10'6 (4.20-5.60); RED CELL DISTRIBUTION WIDTH 15.9 % (11.5-14.5); WHITE BLOOD COUNT 13.6 X10'3 (4.5-11.0)
[2024-09-22 07:49] LABS: APTT 29 SECONDS (22-32); INR 1.1 INR; PROTHROMBIN TIME 11.3 SECONDS (9.0-12.0)
[2024-09-22 08:28] LABS: ALANINE AMINOTRANSFERASE 21 U/L (12-78); ALBUMIN 2.2 G/DL (3.4-5.0); ALBUMIN/GLOBULIN RATIO 0.6 (1.1-1.5); ALKALINE PHOSPHATASE 80 IU/L (46-116); ANION GAP 7 (8-16); ASPARTATE AMINO TRANSFERASE 19 U/L (10-37); BILIRUBIN,TOTAL 0.2 MG/DL (0.1-1.0); BLOOD UREA NITROGEN 21 MG/DL (7-18); BUN/CREATININE RATIO 28.8 (10.0-20.0); CALCIUM 8.8 MG/DL (8.5-10.1); CHLORIDE 104 MMOL/L (99-107); CREATININE 0.73 MG/DL (0.40-0.90); GLUCOSE 197 MG/DL (70-104); PHOSPHORUS 3.8 MG/DL (2.3-4.5); SODIUM 137 MMOL/L (135-145); TOTAL CARBON DIOXIDE 25.6 MMOL/L (24-32); TOTAL PROTEIN 6.2 G/DL (6.4-8.2); eCRCL 70 ML/MIN; eGFR 79 ML/MIN
[2024-09-22] MEDS: CefTRIAXone/D5W-Rocephin 1gm 50 ML IV SCH (08:33)
[2024-09-22] MEDS: HYDROcodone/acetaminophen 5mg/325mg tablet PO ONE (20:08)
[2024-09-23 02:00] VITALS: BP 162/82; PULSE 72; RESP 19; TEMP 97.6; O2SAT 97
[2024-09-23 07:03] VITALS: RESP 18
[2024-09-23 07:19] LABS: BASOPHILS % (AUTO) 0.1 % (0-1); EOSINOPHILS % (AUTO) 0 % (0-6); HEMATOCRIT 35.8 % (35.0-45.0); HEMOGLOBIN 11.8 g/dl (12.0-16.0); LYMPHOCYTES # (AUTO) 1.5 X10'3 (1.1-4.8); LYMPHOCYTES % (AUTO) 10.4 % (21-51); MEAN CORPUSCULAR HEMOGLOBIN 25.7 PG (27.0-31.0); MEAN CORPUSCULAR HGB CONC 32.9 g/dL (33.0-36.5); MEAN CORPUSCULAR VOLUME 78.2 FL (78-98); MONOCYTES # (AUTO) 0.6 X10'3 (0-0.9); MONOCYTES % (AUTO) 4.2 % (2-12); NEUTROPHILS % (AUTO) 85.3 % (42-75); PLATELET COUNT 488 X10'3 (140-440); RED BLOOD COUNT 4.58 X10'6 (4.20-5.60); RED CELL DISTRIBUTION WIDTH 15.9 % (11.5-14.5)
[2024-09-23 07:30] LABS: APTT 28 SECONDS (22-32); INR 1.1 INR; PROTHROMBIN TIME 11.5 SECONDS (9.0-12.0)
[2024-09-23] MEDS: acetaminophen 325mg tablet PO PRN (07:31)
[2024-09-23 07:49] LABS: ALANINE AMINOTRANSFERASE 20 U/L (12-78); ALBUMIN 2.3 G/DL (3.4-5.0); ALBUMIN/GLOBULIN RATIO 0.6 (1.1-1.5); ALKALINE PHOSPHATASE 83 IU/L (46-116); ANION GAP 7 (8-16); ASPARTATE AMINO TRANSFERASE 17 U/L (10-37); BILIRUBIN,TOTAL 0.2 MG/DL (0.1-1.0); BLOOD UREA NITROGEN 21 MG/DL (7-18); BUN/CREATININE RATIO 31.3 (10.0-20.0); CALCIUM 8.7 MG/DL (8.5-10.1); CHLORIDE 103 MMOL/L (99-107); CREATININE 0.67 MG/DL (0.40-0.90); GLUCOSE 187 MG/DL (70-104); PHOSPHORUS 3.9 MG/DL (2.3-4.5); POTASSIUM 4.1 MMOL/L (3.5-5.1); SODIUM 137 MMOL/L (135-145); TOTAL CARBON DIOXIDE 27.1 MMOL/L (24-32); TOTAL PROTEIN 6.1 G/DL (6.4-8.2); eCRCL 76 ML/MIN; eGFR 87 ML/MIN
[2024-09-23 07:53] VITALS: BP 145/81; PULSE 76; RESP 16; TEMP 97.8; O2SAT 98
[2024-09-23] MEDS ORDERED: PRED10TA23 PO (10:42)
[2024-09-23] MEDS ORDERED: FURO-150 PO (10:42)
[2024-09-23] MEDS ORDERED: LEVO750T68 PO (10:42)
[2024-09-23] MEDS ORDERED: HYDR-3965 PO (10:42)
[2024-09-23 11:21] VITALS: BP 138/78; PULSE 82; RESP 17; TEMP 97.5; O2SAT 92
[2024-09-23 12:47] VITALS: PULSE 80; RESP 18; O2SAT 98
[2024-09-23 12:52] VITALS: PULSE 81; RESP 18
== END 2024-09-23 16:06 | disposition home or self-care (01) | DRG 871 ==
LOC: ER 15:48 → ED HOLD 22:32 → PCU 3S 09-21 01:20
PROVIDERS: ADMIT Specialist; ATTEND Internal Medicine
DX: A41.9 Sepsis, unspecified organism (principal); J18.9 Pneumonia, unspecified organism; J96.01 Acute respiratory failure with hypoxia; J44.1 Chronic obstructive pulmonary disease with (acute) exacerbation; J44.0 Chronic obstructive pulmonary disease with (acute) lower respiratory infection; I27.81 Cor pulmonale (chronic); Z20.822 Contact with and (suspected) exposure to COVID-19; I50.9 Heart failure, unspecified; G89.29 Other chronic pain; Z90.710 Acquired absence of both cervix and uterus; Z79.899 Other long term (current) drug therapy
CPT/HCPCS: 36415; 71046; 80048; 80053; 80305; 81003; 83605; 83735; 83880; 84100; 84145; 84484; 85008; 85025; 85610; 85730; 87070; 87077; 87081; 87186; 87502; 87503; 87811; 93005; 93306; 94640; 94760; 97116; 97161; 97530; 99291; A6449; A7015; G0378; J0456; J0696; J1650; J1940; J2919; J7030

== ENCOUNTER 2024-11-18 14:08 | Emergency (ER) | payer MEDICARE, MEDICAID ==
[~2024-11-18] VITALS: Ht 170.2 cm; Wt 68.0 kg
[~2024-11-18 14:08] MED LIST changes: -ALBU2.5V7 NEB; +FAMO40TA73 PO; -FLUT1BLS4 INH; +FLUT1BLS4 PO; +FURO20TA4 PO; -GABA300C PO; -IBUP-864 PO; +IPRA3AMP31 NEB; +NICO-631 TOP
[2024-11-18 14:49] LABS: BASOPHILS % (AUTO) 0.1 % (0-1); EOSINOPHILS # (AUTO) 0.2 X10'3 (0-0.9); EOSINOPHILS % (AUTO) 1.9 % (0-6); LYMPHOCYTES # (AUTO) 2.9 X10'3 (1.1-4.8); LYMPHOCYTES % (AUTO) 30.6 % (21-51); MEAN CORPUSCULAR HEMOGLOBIN 26.8 PG (27.0-31.0); MEAN CORPUSCULAR HGB CONC 33.4 g/dL (33.0-36.5); MEAN CORPUSCULAR VOLUME 80.5 FL (78-98); MEAN PLATELET VOLUME 8.5 FL (7.4-10.4); MONOCYTES # (AUTO) 0.7 X10'3 (0-0.9); MONOCYTES % (AUTO) 7.2 % (2-12); NEUTROPHILS # (AUTO) 5.7 X10'3 (1.8-7.7); NEUTROPHILS % (AUTO) 60.2 % (42-75); PLATELET COUNT 305 X10'3 (140-440); RED BLOOD COUNT 4.84 X10'6 (4.20-5.60); RED CELL DISTRIBUTION WIDTH 19.5 % (11.5-14.5); WHITE BLOOD COUNT 9.5 X10'3 (4.5-11.0)
[2024-11-18 15:00] LABS: ALANINE AMINOTRANSFERASE 26 U/L (12-78); ALBUMIN 3.7 G/DL (3.4-5.0); ALBUMIN/GLOBULIN RATIO 1.3 (1.1-1.5); ALKALINE PHOSPHATASE 89 IU/L (46-116); ANION GAP 10 (8-16); ASPARTATE AMINO TRANSFERASE 18 U/L (10-37); BILIRUBIN,TOTAL 0.4 MG/DL (0.1-1.0); BLOOD UREA NITROGEN 14 MG/DL (7-18); BUN/CREATININE RATIO 17.7 (10.0-20.0); CALCIUM 8.8 MG/DL (8.5-10.1); CHLORIDE 108 MMOL/L (99-107); CREATININE 0.79 MG/DL (0.40-0.90); GLUCOSE 100 MG/DL (70-104); POTASSIUM 3.4 MMOL/L (3.5-5.1); SODIUM 143 MMOL/L (135-145); TOTAL CARBON DIOXIDE 25.1 MMOL/L (24-32); TOTAL PROTEIN 6.6 G/DL (6.4-8.2); eCRCL 64 ML/MIN; eGFR 72 ML/MIN
[2024-11-18] MEDS ORDERED: methylPREDNISolone sod succ 125mg/2ml vial IV ONE (15:05)
[2024-11-18 15:08] LABS: PRO BRAIN NATRIURETIC PEPTIDE 1023 PG/ML (0-125)
[2024-11-18] MEDS: ipratropium/albuterol 3ml nebule NEB STA (15:57)
[2024-11-18] MEDS: predniSONE 20 mg tablet PO ONE ×2 (15:58→15:59)
[2024-11-18 16:34] VITALS: PULSE 80; RESP 18; O2SAT 99
[2024-11-18 16:43] VITALS: PULSE 86; RESP 23; O2SAT 100
[2024-11-18] MEDS ORDERED: PRED20TA PO (16:54)
[2024-11-18] MEDS ORDERED: BENZ-38 PO (16:56)
[2024-11-18] MEDS: ipratropium/albuterol 3ml nebule NEB ONE (17:00)
[2024-11-18] MEDS ORDERED: NYST100069 PO (17:07)
[2024-11-18] MEDS: diazepam 5mg tablet PO ONE (17:11)
[2024-11-18 18:01] VITALS: BP 145/90; PULSE 93; RESP 16; O2SAT 95
[2024-11-18] MEDS: mag hydrox/Alum hydrox/simeth 30ml oral suspension PO ONE (18:14)
[2024-11-18] MEDS: LIDOcaine 2% Viscous 15ml cup MM PRN (18:14)
[2024-11-18 18:19] VITALS: TEMP 98.3
== END 2024-11-18 18:20 | disposition home or self-care (01) ==
LOC: ER 14:08
DX: J44.1 Chronic obstructive pulmonary disease with (acute) exacerbation (principal); Z90.710 Acquired absence of both cervix and uterus; Z20.822 Contact with and (suspected) exposure to COVID-19
CPT/HCPCS: 36415; 71045; 80053; 83880; 84484; 85025; 87502; 87503; 87811; 93005; 94640; 99285; J7512; 94760

== ENCOUNTER 2025-02-15 07:02 | Inpatient (IN) | payer MEDICARE, MEDICAID ==
[2025-02-15] VITALS (14 sets, daily range): BP systolic 134–149; BP diastolic 77–80; PULSE 66–113; RESP 16–24; TEMP 96.9–98.3; O2SAT 91–99
[~2025-02-15] VITALS: Ht 170.2 cm; Wt 80.0 kg
--- NOTE | 2025-02-15 07:13 | ELECTROCARDIOGRAPH REPORT ---
[facility] Test Date: 2025-02-15 Test Time: 07:11:56 Pat Name: ASTER GUILLEN Department: EMERGENCY ROOM Room: Gender: F [employer]: WILLIE : 1955 Requested By: BHARGAV DALY Order Number: [id number] Reading MD: Measurements Intervals [place] Rate: 114 P: 74 ND: 133 QRS: 60 QRSD: 88 T: 77 QT: 362 QTc: 499 Interpretive Statements Sinus tachycardia Borderline prolonged QT interval Baseline wander in lead(s) V1 Please click the below link to view image of tracing.
[2025-02-15] MEDS: magnesium sulf-water 2g/50mL 50 ML IV ONE (07:17)
--- NOTE | 2025-02-15 07:17 | Physician Documentation ---
History of Present Illness ~ Stated Complaint: SOB Time Seen by MD: 07:07 Primary Medical Doctor: Danilo MOON History, physical examination, and review of systems are severely limited due to acuity of clinical condition. This is a 70-year-old female with a known history of COPD, previous history of intubation, comes in for evaluation of severe respiratory distress that began without any obvious trigger, trauma provocation approximately 30 minutes prior to arrival. Denies any chest pain. Sats in the 70s according to EMS. Normally not on oxygen. Transitioned to CPAP with a no significant improvement of work of breathing. Upon arrival the patient is working to breathe, nonverbal, answers questions by shaking her head or nodding. Medication Reconciliation Allergies: Coded Allergies: No Known Allergies (Unverified , 10/08/24) Scheduled Famotidine (Pepcid), 1 TAB PO DAILY Fluticasone/Umeclidin/Vilanter (Trelegy Ellipta 100-62.5-25), 1 PUFF PO DAILY, (Reported) Furosemide (Furosemide), 1 TAB PO DAILY, (Reported) Nicotine 14 MG Patch* (Habitrol 14 MG Patch*), 1 PATCH TOP DAILY, (Reported) Scheduled PRN Ipratropium/Albuterol Sulfate (Duoneb 2.5-0.5 Mg/3 Ml Soln), 1 VIAL NEB Q4H PRN for SOB or wheezing, (Reported) Past Medical History Past Medical History: Asthma, COPD, Hepatitis C, Chronic Pain, *CANCER* Past Surgical History: hysterectomy, orthopedic surgeries, tonsillectomy Patient History: Patient reports no known family medical history. Alcohol Use: Occasionally Drug Use: none Lives with: Family Lives In: Home Occupation: disabled Review of Systems ROS Limited as above Physical Exam Physical Exam GENERAL: Awake, alert, oriented, GCS 15, moderate to severe respiratory distress , non-toxic appearing, answers questions by nodding her head or shaking her head, follows commands appropriately. Examined immediately upon arrival in bed 5., myself and full resuscitative team present HEENT: Atraumatic, normocephalic, pupils equal, extraocular muscles intact, sclerae anicteric, mucus membranes moist, oropharynx is clear, no stridor. NECK: supple, full active range of motion, trachea midline, no thyromegaly, no lymphadenopathy, no JVD. CARDIOVASCULAR: Tachycardic and regular rate/rhythm, no murmurs/gallops/rubs, Pulses are 2+ in all extremities and symmetric. Capillary refill less than 2 seconds. PULMONARY: Tachypneic and severely labored, almost non-existent air movement , moderate to severe respiratory distress, nonverbal, scant wheezing, no ronchi, no rales, notable accessory muscle use. GASTROINTESTINAL: Soft, non-tender, non-distended, normal active bowel sounds, no organomegaly, no pulsatile masses, no CVA tenderness. NEUROLOGIC: Lucid with normal mental status. Normal facial symmetry. Moves all extremities symmetrically and with purpose. No truncal ataxia. Speech is fluid without evidence of dysarthria or aphasia, no focal deficits appreciated. MUSCULOSKELETAL: There is full range of motion of all extremities. There is no joint pain or joint swelling or joint erythema. There is no muscle pain or t enderness or swelling. EXTREMITIES: warm, well-perfused, no cyanosis, no clubbing, no edema, no acute deformities. Skin: warm, dry, no rashes or lesions, no jaundice, no petechiae orpurpura. No ecchymosis. PSYCHIATRIC: Understandably anxious affect, normal insight, normal concentration. Focused exam: [] Progress Results/Orders Results/Orders Orders - BHARGAV DALY DO Abg (Arterial Blood Gas) (02/15/25 07:07) Chest,Single View (02/15/25 07:07) Hs Troponin I W Calculations (02/15/25 09:07) Hs Troponin I W Calculations (02/15/25 10:07) Albuterol 2.5mg/3ml Nebule (Proventil 2. (02/15/25 07:10) Culture Blood (02/15/25 07:10) Bipap/Cpap (02/15/25 ) Completed Orders - BHARGAV DALY DO Electrocardiogram (02/15/25 07:07) Cbc/Diff (02/15/25 07:07) Chest,Single View (02/15/25 07:07) PBNP (02/15/25 07:07) MG (02/15/25 07:07) CMP (02/15/25 07:07) Hs Troponin I W Calculations (02/15/25 07:07) * Rt Notification Q1H (02/15/25 07:10) Methylprednisolone Sod Succ (Solumedrol (02/15/25 07:10) Magnesium Sulf-Water 2g/50ml (Magnesium (02/15/25 07:10) Lacticsepsis (02/15/25 07:10) Medications Received in ER Medications (Trade) Dose Ordered Sig/Marlo Route PRN Reason Start Time Stop Time Status Last Admin Dose Admin (Proventil 2.5 MG/3ML nebule) 10 mg Q1H PRN CONTNEB SOB or wheezing 02/15/25 07:10 02/15/25 07:19 10 MG (SoluMEDROL 125mg inj) 125 mg ONCE ONCE IV 02/15/25 07:10 02/15/25 07:16 DC 02/15/25 07:17 125 MG Magnesium Sulfate 50 ml @ 100 mls/hr ONCE ONCE IV 02/15/25 07:10 02/15/25 07:39 DC 02/15/25 07:17 100 MLS/HR Vital Signs 02/15/25 02/15/25 02/15/25 02/15/25 07:05 07:14 07:20 07:20 Temp 97.3 Pulse 116 113 108 Resp 26 24 22 24 B/P (MAP) 141/90 Pulse Ox 96 96 97 O2 Delivery BiPAP+ O2 Flow Rate 8.0 FiO2 40 40 02/15/25 07:25 Resp 24 B/P (MAP) Laboratory Tests Test 02/15/25 07:12 02/15/25 07:13 02/15/25 07:30 Lactic Acid Level 3.7 H White Blood Count 11.3 H Red Blood Count 5.77 H Hemoglobin 15.5 Hematocrit 47.7 H Mean Corpuscular Volume 82.8 Mean Corpuscular Hemoglobin 26.9 L Mean Corpuscular Hemoglobin Concent 32.5 L Red Cell Distribution Width 16.2 H Platelet Count 289 Mean Platelet Volume 9.3 Neutrophils (%) (Auto) 51.8 Lymphocytes (%) (Auto) 36.9 Monocytes (%) (Auto) 5.1 Eosinophils (%) (Auto) 5.3 Basophils (%) (Auto) 0.9 Neutrophils # (Auto) 5.9 Lymphocytes # (Auto) 4.2 Monocytes # (Auto) 0.6 Eosinophils # (Auto) 0.6 Basophils # (Auto) 0.1 CBC Comment Sodium Level 142 Potassium Level 3.9 Chloride Level 106 Carbon Dioxide Level 22.1 L Anion Gap 14 Blood Urea Nitrogen 12 Creatinine 0.90 Estimated GFR/1.73 m2 62 BUN/Creatinine Ratio 13.3 Glucose Level 202 H Calcium Level 8.8 Magnesium Level 2.0 Total Bilirubin 0.4 Aspartate Amino Transf (AST/SGOT) 30 Alanine Aminotransferase (ALT/SGPT) 29 Alkaline Phosphatase 110 Troponin I High Sensitivity 20 Pro-B-Type Natriuretic Peptide 568 H Total Protein 8.0 Albumin 4.0 Globulin 4.0 Albumin/Globulin Ratio 1.0 L Chemistry Comments Blood Gas Specimen Type Arterial Blood Gas Puncture Site Rr O2 Saturation 87.4 L Arterial Blood pH (Temp corrected) 7.334 L Arterial Blood pCO2 (Temp correct) 34.4 Arterial Blood pO2 (Temp corrected) 56.6 L Arterial Blood PO2/FiO2 Ratio 1.49 Arterial Blood HCO3 18.0 L Arterial Blood Base Excess -7.1 L Arterial Blood Oxyhemoglobin 85.8 L Arterial Blood Carboxyhemoglobin 1.5 Arterial Blood Methemoglobin 0.3 Arterial Blood Deoxyhemoglobin 12.4 H Raymond Test Positive Blood Gas Hemoglobin 15.4 Blood Gas Temperature 36.3 Blood Gas Set Respiration Rate 8 Blood Gas Modality Mask - bipap FiO2 40.0 Blood Gas Tidal Volume 600 EKG/XRAY/CT/US/VASC/MRI EKG : Additional Comment EKG was obtained at my request and interpreted by myself showing sinus tac hycardic, rate of 114, normal MO interval, narrow QRS, QTC of 499, prolonged, normal axis, there is no evidence of STEMI. T-wave inversion in lead three noted. Medical Decision Making Findings Facility Status: ED Holds, [facility] process The plan was discussed with the patient, who demonstrates clear understanding of the plan and is in agreement with the plan unless otherwise noted in the chart. All questions have been answered, all concerns were addressed unless otherwise documented. I was available throughout their ED stay for frequent reassessment and questions. Differential Diagnoses (considered and possible or likely): [COPD exacerbation, acute hypoxic respiratory failure, CHF, combined process, ACS, pneumonia, less likely PE, less likely pneumothorax, less likely anemia, less likely salicylate/ cyanide/methemoglobinemia poisoning] ??Differential Diagnoses (considered and unlikely, not requiring evaluation currently): [See above] MDM Data Please see HPI for the following: Independent Historians and external Records Review. Historian: Limited information from patient Independent Historians: ?[Record review, EMS crew] Medication Management: [Reviewed medication list] Social History and determinants: [Reviewed] Please see the body of the note for the following: Any independent interpretations of ECG, imaging studies. All vitals signs/haemodynamics, ordered tests were independently reviewed and interpreted by myself. Nursing triage complaint and vitals reviewed, additional nursing notes were reviewed as available and I agree unless otherwise noted or documented in contradiction in the chart Vital Signs: Independently reviewed Labs: Independently interpreted Imaging: Independently interpreted Old Medical Records: Independently reviewed, see HPI for relevant summary and information Pulse Oximetry: [72% on room air] interpreted as [hypoxia] by me [Build Engineer: Tachycardic Rate, Regular rhythm, no ectopy, sinus tachycardia. reviewed and interpreted by me] Additionally notably showing: [Patient markedly improved on BiPAP. Oxygenation has a improved. Laboratory studies notable for marginally elevated BNP, normal troponin, dehydration.] Chest x-ray consistent with COPD Tests considered but not ordered include: [Advanced imaging has been considerably does not appear to be necessary] Social Determinants of Health Impact: Patient was evaluated in [facility], or [facility] [place] healthcare due to below par ratio of patient to medical providers. [] Comorbid Conditions Impacting Present Evaluation and Care/Treatment: [COPD] Management Discussions with other Healthcare Providers: [Hospitalist regarding admission] Treatment and Disposition Medication Management (Given or considered): []. See EMR for details Consideration for Hospitalization/Escalation/Deescalation of Care: Admission for observation is necessary for further management of her COPD exacerbation and hypoxic respiratory failure ?ED Course:?[Markedly improved, does not require intubation at this time.] ?Shared decision making:?[] Code status:?FULL Please see the full Electronic Medical Record for full details of nursing documentation, medications list, other records of complete past medical history and conditions, vital signs, laboratory studies, and any radiologic study interpretations by radiologists. Portions of this note were completed using [employer] dictation software and as a result there may exist minor errors in spelling. I have reviewed elements of past family and social history and agree as included in note. Departure Disposition: 09 ADMITTED INPATIENT Impression: Primary Impression: COPD exacerbation Additional Impressions: Respiratory distress Acute hypoxic respiratory failure Condition: Improved Referrals: NO PRIMARY CARE PROVIDER (PCP) Critical Care Note Critical Care Note CRITICAL CARE TIME: [45 ] minutes Treatments/Evaluations: Close monitoring and treatment of unstable vital signs, cardiorespiratory, and neurologic status, while maintaining tight balance of fluid, respiratory, and cardiac interventions. This time includes discussing the case with the patient and the patients family. This time does not include all procedures stated elsewhere in this record. This time also includes reviewing old records, labs and radiological studies. This time includes examining and re- examining the patient. Additionally, this time also includes arranging care with admitting and consulting physicians. Signature Scribe Signature: No scribe Attestation: This note accurately reflects clinical decisions, work performed by myself, DO MALIKA Bourgeois NICHOLAS M DO Feb 15, 2025 07:17
[2025-02-15] MEDS: albuterol 2.5 MG/3 ML nebule CONTNEB PRN (07:19)
[2025-02-15 07:31] LABS: MEAN PLATELET VOLUME 9.3 FL (7.4-10.4); RED CELL DISTRIBUTION WIDTH 16.2 % (11.5-14.5)
[2025-02-15 07:34] LABS: ABG BASE EXCESS -7.1 mmol/L (-2.0-3.0); ABG HCO3 18.0 mmol/L (21.0-28.0); ABG OXYGEN SATURATION 87.4 % (94.0-98.0); ABG PCO2 (T) 34.4 mmHg (32.0-45.0); ABG PH (T) 7.334 (7.350-7.450); ABG PO2 (T) 56.6 mmHg (83.0-108.0); ALLEN'S TEST POSITIVE; FCOHb 1.5 % (0.5-1.5); FHHb 12.4 % (0.0-5.0); FIO2 40.0 mmHg/%; FMetHb 0.3 % (0.0-1.5); FO2Hb 85.8 % (94.0-98.0); MODE MASK - BIPAP; PATIENT TEMPERATURE 36.3; RESPIRATORY RATE 8 b/min; TIDAL VOLUME 600 mL; TOTAL HEMOGLOBIN 15.4 G/dl (12.0-16.0)
--- NOTE | 2025-02-15 07:37 | RADIOLOGY REPORT ---
CHEST RADIOGRAPH Indication: sob Technique: Single frontal view of the chest was obtained Comparison: DI CHEST,SINGLE VIEW on DOS: 11/18/24 FINDINGS: Lines and Tubes: None Lungs: No focal consolidation. Pleura: No effusion. No pneumothorax. Cardiomediastinal contours: Unremarkable Bones: No acute osseous abnormality. IMPRESSION: 1. No acute cardiopulmonary disease.
[2025-02-15 07:44] LABS: CREATININE 0.90 MG/DL (0.40-0.90); TOTAL CARBON DIOXIDE 22.1 MMOL/L (24-32); eCRCL 56 ML/MIN; eGFR 62 ML/MIN
[2025-02-15 07:51] LABS: PRO BRAIN NATRIURETIC PEPTIDE 568 PG/ML (0-125)
[2025-02-15] MEDS ORDERED: magnesium Cl slow-release 64mg tablet PO PRN (08:50)
[2025-02-15] MEDS ORDERED: ondansetron/PF 4mg/2ml inj IV PRN (08:50)
[2025-02-15] MEDS ORDERED: magnesium sulf-water 2g/50mL 50 ML IV PRN (08:50)
[2025-02-15] MEDS ORDERED: magnesium sulf-water 4G/100mL 100 ML IV PRN (08:50)
[2025-02-15] MEDS ORDERED: potassium Cl 40MEQ/1/2NS 520ml 520 ML IV PRN (08:50)
[2025-02-15] MEDS ORDERED: potassium Cl 20 mEq SR tablet PO PRN ×2 (08:50)
[2025-02-15] MEDS: ipratropium/albuterol 3ml nebule NEB SCH (08:55)
[2025-02-15] MEDS ORDERED: ipratropium/albuterol 3ml nebule NEB PRN (08:55)
[2025-02-15] MEDS: CefTRIAXone/D5W-Rocephin 1gm 50 ML IV SCH (09:30)
[2025-02-15] MEDS: azithromycin/NS 500mg/250ml 250 ML IV SCH (10:09)
[2025-02-15] MEDS ORDERED: GABA300T28 (11:07)
--- NOTE | 2025-02-15 17:28 | HISTORY AND PHYSICAL-Residence ---
History & Physical Providers to CC Resident Creating Document: BARBARA GILLIS RES ~ History of Present Illness Primary Medical Doctor: Danilo Olguin Reason for Admit\Complaint: Respiratory distress History of Present Illness This is a 70-year-old female when known history of COPD and prior episodes requiring intubation, who presented with the acute respiratory distress. Approximately 30 minutes prior to arrival, she developed severe shortness of breaths without any identifiable triggers, trauma, or provocation. She denied chest pain, cough, fever or chills. On arrival to the ER, the patient was in significant respiratory distress, nonverbal, and communicated only through nodding or shaking her head. She indicated that she had experienced baseline shortness of breaths for sometimes, but on the morning of presentation she was abruptly awakened from sleep due to severe dyspnea. No additional history could be obtained due to her clinical condition. Notably, she was hospitalized at [facility] during the 1st week of October for acute respiratory failure due to COPD exacerbation and possible pneumonia, which required endotracheal intubation. In the ED, she was placed on BiPAP at the time of evaluation. Allergies: Coded Allergies: No Known Allergies (Unverified , 10/08/24) Home Medications Home Medications Active Pepcid (Famotidine) 40 Mg Tablet 1 Tab PO DAILY 10 Days Reported Gabapentin ER (Gabapentin) 300 Mg Tab.er.24h Duoneb 2.5-0.5 Mg/3 Ml Soln (Ipratropium/Albuterol Sulfate) 0.5 Mg-3 Mg (2.5 Mg Base)/3 Ml Ampul.neb 1 Vial NEB Q4H PRN Trelegy Ellipta 100-62.5-25 (Fluticasone/Umeclidin/Vilanter) 100-62.5 Blst.w.dev 1 Puff PO DAILY Furosemide 20 Mg Tablet 1 Tab PO DAILY Habitrol 14 MG Patch* (Nicotine) 1 Each Patch.td24 1 Patch TOP DAILY Past Medical History Past Medical History Asthma, COPD, Hepatitis C, Chronic Pain, *CANCER* Past Surgical History Surgical History Comment hysterectomy, orthopedic surgeries, tonsillectomy Family History Family History: Patient reports no known family medical history. Past Social History Social History Comment Smoking cigarettes, Less than 1 pack/day, occasionally consumes alcohol, lives with family, denies recreational drugs Smoking: Less than 1 pack/day Alcohol Use: Occasionally Drug Use: None Lives with: Family Lives In: Home Occupation: disabled ROS All Other Systems: Reviewed and Negative ROS As stated above in the HPI, otherwise all systems are reviewed and negative. Exam Vitals: Vital Signs Date Time Temp Pulse Resp B/P (MAP) Pulse Ox O2 Delivery O2 Flow Rate FiO2 02/15/25 15:54 71 20 Nasal Cannula 2.0 02/15/25 15:46 91 28 02/15/25 15:00 98.3 149/80 (103) General: Respiratory distress, on BiPAP HEENT: Conjunctiva pink, Sclera clear, Mucus Membranes moist. Neck: Supple without masses and tenderness. Resp: Basilar crackles and expiratory wheezing Heart: Regular Rate and rhythm, normal S1 and S2 without murmur, rub or gallop. Abdomen: Soft and non tender no organomegaly Extremities: No cyanosis,clubbing or edema. Skin: Warm and Dry. Diagnostic Data Last Recorded Lab Results: 02/16/25 0538 02/16/25 0538 Advance Care Planning Advanced Care plannin - 30 Minutes Additional Plan Assessment and plan This is a 70-year-old female when known history of COPD and prior episodes requiring intubation, who presented with the acute respiratory distress. Approximately 30 minutes prior to arrival, she developed severe shortness of breaths without any identifiable triggers, trauma, or provocation. She denied chest pain. Acute COPD exacerbation Acute on chronic hypoxemic respiratory failure Primary metabolic acidosis with respiratory compensation History of prior intubation for COPD exacerbation Baseline, 2 L supplemental oxygen via nasal cannula High-risk for rapid decompensation Maintain oxygen saturation between 90-94%; supplemental O2 via nasal canula if SpO2 <90% Solu-Medrol 125 mg IV bolus given Solu-Medrol 60 Mg IV three times daily Ceftriaxone 1 g IV daily Azithromycin 500 mg IV daily DuoNeb nebulization every 4 hours Incentive spirometry Elevated proBNP 460 today. ProBNP was > 1000 on October 18, 2024 CXR does not show any pulmonary vascular congestions Lasix 40 mg mg IV once given Ordered echo, please follow Elevated troponin; 20-65-63 Likely type 2 CO/demand ischemia EKGs does not show any acute ischemic changes Chronic pain issues Peripheral neuropathies Continue gabapentin Code status: Full code. Initially the patient expressed that she did not want intubation and was made DNR. Later, nursing staff informed me that the patient requested full code status. I personally spoke with the patient in the evening, and she clearly stated her wish to be full code, including intubation. Code status updated accordingly. DVT prophylaxis: Rashad Gillis Internal Medicine Resident Addendum pt required bipap due to respiratory distress 40 minutes of critical care time spent in the care of the pt Date of Service: Feb 15, 2025 Billing Provider: LASHON SINGH MD Common Visit Codes: 73053-HIMBPPPS CARE 30-74 MIN Secondary Visit Codes: 31541-VIMOOLBX CARE PLAN 30 MINUTES BARBARA GILLIS, RES Feb 15, 2025 17:28 LASHON SINGH MD Feb 16, 2025 20:17
[2025-02-15] MEDS: K and/or MAG REPLACEMENT MC SCH (18:53)
[2025-02-16] VITALS (13 sets, daily range): BP systolic 114–145; BP diastolic 58–84; PULSE 81–105; RESP 16–22; TEMP 97.3–98.3; O2SAT 90–100
[2025-02-16 07:01] LABS: MEAN PLATELET VOLUME 10.1 FL (7.4-10.4); RED CELL DISTRIBUTION WIDTH 15.7 % (11.5-14.5)
[2025-02-16 07:13] LABS: CHOL/HDL RATIO 2.6 (0.00-4.99); CREATININE 0.95 MG/DL (0.40-0.90); LDL CHOLESTEROL 90 MG/DL (50-100); TOTAL CARBON DIOXIDE 28.6 MMOL/L (24-32); eCRCL 53 ML/MIN; eGFR 58 ML/MIN
[2025-02-16] MEDS: nicotine 14mg patch - 24hr TD SCH (08:42)
[2025-02-16] MEDS: enoxaparin 40mg/0.4ml syringe SUBCUT SCH (08:43)
[2025-02-16] MEDS: PERFLUTREN PROTEIN-A MICROSPHR (Optison) 0.22 MG/ML 3ML VIAL IV ONE (12:45)
--- NOTE | 2025-02-16 12:49 | PROGRESS NOTE- Residence ---
Progress Note - Resident Providers to CC Resident Creating Document: BARBARA GILLIS RES ~ Antibiotic Timeout Antibiotic Ordered?: Yes Subjective Patient was seen and examined at bedside. She has been off of BiPAP since yesterday. She is back to her baseline which is 2.5 L oxygen via nasal cannula. Objective Vital Signs Date Time Temp Pulse Resp B/P (MAP) Pulse Ox O2 Delivery O2 Flow Rate FiO2 02/16/25 11:11 102 22 Nasal Cannula 3.0 02/16/25 11:02 96 32 02/16/25 11:00 97.3 145/84 (104) General: Awake alert and oriented HEENT: Conjunctiva pink, Sclera clear, Mucus Membranes moist. Neck: Supple without masses and tenderness. Resp: Basilar crackles and expiratory wheezing Heart: Regular Rate and rhythm, normal S1 and S2 without murmur, rub or gallop. Abdomen: Soft and non tender no organomegaly Extremities: No cyanosis,clubbing or edema. Skin: Warm and Dry. Result Diagram: 02/16/25 0538 02/16/2538 Advance Care Planning Advanced Care plannin - 30 Minutes Assessment Assessment This is a 70-year-old female when known history of COPD and prior episodes requiring intubation, who presented with the acute respiratory distress. Approximately 30 minutes prior to arrival, she developed severe shortness of breaths without any identifiable triggers, trauma, or provocation. She denied chest pain, cough, fever or chills. Plan Plan Acute COPD exacerbation Acute on chronic hypoxemic respiratory failure Primary metabolic acidosis with respiratory compensation History of prior intubation for COPD exacerbation Baseline, 2 L supplemental oxygen via nasal cannula High-risk for rapid decompensation Maintain oxygen saturation between 90-94%; supplemental O2 via nasal canula if SpO2 <90% Solu-Medrol 125 mg IV bolus given Solu-Medrol 60 Mg IV three times daily Ceftriaxone 1 g IV daily Azithromycin 500 mg IV daily DuoNeb nebulization every 4 hours Incentive spirometry Elevated proBNP 460 today. ProBNP was > 1000 on October 18, 2024 CXR does not show any pulmonary vascular congestions Lasix 40 mg mg IV once given. Continue Lasix 40 mg IV daily. Ordered echo, please follow Type II [place]/Deman Ischemia Elevated troponin; EKGs does not show any acute ischemic changes Continue telemetry Prediabetes Hemoglobin A1c 6.0 Lifestyle modification and diet Chronic pain issues Peripheral neuropathies Continue gabapentin Code status: Full code DVT prophylaxis: Heparin Disposition: Re-evaluation tomorrow, PT, could be discharged home tomorrow. Barbara Gillis Internal Medicine Resident Date of Service: Feb 16, 2025 Billing Provider: LASHON SINGH MD Common Visit Codes: 86589-[id number] INP/OBS CARE(HIGH) BARBARA GILLIS, RES Feb 16, 2025 12:48 LASHON SINGH MD Feb 16, 2025 20:18
[2025-02-17] VITALS (12 sets, daily range): BP systolic 118–148; BP diastolic 71–79; PULSE 90–102; RESP 16–20; TEMP 97–97.4; O2SAT 89–98
[2025-02-17 00:49] LABS: MEAN PLATELET VOLUME 9.8 FL (7.4-10.4); RED CELL DISTRIBUTION WIDTH 15.8 % (11.5-14.5)
[2025-02-17 00:57] LABS: CREATININE 1.26 MG/DL (0.40-0.90); TOTAL CARBON DIOXIDE 26.4 MMOL/L (24-32); eCRCL 40 ML/MIN; eGFR 42 ML/MIN
[2025-02-17] MEDS ORDERED: CEFD300C3 PO ×2 (11:47→17:29)
[2025-02-17] MEDS ORDERED: PRED10TA23 PO ×2 (11:47→17:29)
[2025-02-17] MEDS ORDERED: ATI1T PO ×2 (11:47→17:29)
[2025-02-17] MEDS ORDERED: LACT1CAP26 PO ×2 (11:47→17:29)
[2025-02-17] MEDS ORDERED: LORA-269 PO (11:54)
--- NOTE | 2025-02-17 15:27 | DISCHARGE SUMMARY-Residence ---
Discharge Summary Providers to CC Resident Creating Document: BARBARA NINO RES ~ Discharge Summary Admission Diagnosis: COPD Exacerbation, Respiratory distress Hospital Course DATE OF ADMISSION: February 16, 2025 DATE OF DISCHARGE: February 17, 2025 Discharge Diagnosis\Comment: Acute COPD exacerbation Acute on chronic hypoxemic respiratory failure Primary metabolic acidosis with respiratory compensation Acute CHFpEF (EF 60-66%, and RVSP 41 mmHg) Type II [place]/Deman Ischemia Prediabetes (Hemoglobin A1c 6.0 ) Chronic pain issues Peripheral neuropathies Operations\Procedures: None Consultants: None Complications: None Condition on DC: Stable New Medications: Cefdinir (Cefdinir) 300 Mg Capsule 1 CAP PO Q12H for 7 Days, #14 CAP 0 Refills Lactobacillus Rhamnosus (Culturelle) 10 Billion Cell Capsule 1 CAP PO DAILY for 30 Days, #30 CAP 0 Refills Lorazepam (Ativan) 1 Mg Tablet 1 TAB PO Q12H PRN PRN for anxiety, #10 TAB 0 Refills Prednisone (Prednisone) 10 Mg Tablet 0 PO DAILY, #21 TAB Take 3 tabs daily x3 days, then 2 daily x3 days 1 daily x3 days 1/2 daily x3 days then STOP Lorazepam (Ativan) 1 Mg Tablet 1 MG PO Q6H PRN for for anxiety/agitation for 7 Days, #7 TAB Continued Medications: Famotidine (Pepcid) 40 Mg Tablet 1 TAB PO DAILY for 10 Days, #30 TAB 0 Refills Fluticasone/Umeclidin/Vilanter (Trelegy Ellipta 100-62.5-25) 100-62.5 Blst.w.dev 1 PUFF PO DAILY Furosemide (Furosemide) 20 Mg Tablet 1 TAB PO DAILY Gabapentin (Gabapentin ER) 300 Mg Tab.er.24h Ipratropium/Albuterol Sulfate (Duoneb 2.5-0.5 Mg/3 Ml Soln) 0.5 Mg-3 Mg (2.5 Mg Base)/3 Ml Ampul.neb 1 VIAL NEB Q4H PRN for SOB or wheezing Nicotine 14 MG Patch* (Habitrol 14 MG Patch*) 1 Each Patch.td24 1 PATCH TOP DAILY Discharge Summary: History of present illness This is a 70-year-old female when known history of COPD and prior episodes requiring intubation, who presented with the acute respiratory distress. Approximately 30 minutes prior to arrival, she developed severe shortness of breaths without any identifiable triggers, trauma, or provocation. She denied chest pain, cough, fever or chills. On arrival to the ER, the patient was in significant respiratory distress, nonverbal, and communicated only through nodding or shaking her head. She indicated that she had experienced baseline shortness of breaths for sometimes, but on the morning of presentation she was abruptly awakened from sleep due to severe dyspnea. No additional history could be obtained due to her clinical condition. Notably, she was hospitalized at [facility] during the 1st week of October for acute respiratory failure due to COPD exacerbation and possible pneumonia, which required endotracheal intubation. In the ED, she was placed on BiPAP at the time of evaluation. Hospital course She was admitted with shortness of breaths and found to have an acute COPD exacerbation, along with the acute on chronic hypoxemic respiratory failure. Workup revealed elevated proBNP, appeared volume overloaded, however, chest x- ray showed no vascular congestions, responded well to Lasix 40 mg IV daily suggested acute CHF with preserved ejection fraction. COPD exacerbation was managed with Solu-Medrol, ceftriaxone, azithromycin, DuoNeb nebulization and incentive spirometry. Discharge course Stable. Tolerating oral intake. Symptom of dyspnea significantly improved. She was discharged with the following instructions: Follow up with your primary care doctor in 1 week. repeat CBC, BMP and proBNP in 1 week. Take your medications as prescribed. Take 3 tabs daily x3 days, then 2 daily x3 days 1 daily x3 days 1/2 daily x3 days then STOP Return to ER or call 911 if you experience worsening shortness of breath, chest pain, diahoresis or high grade fever Discharge medications: See above Discharge physical exam Vital Signs Date Time Temp Pulse Resp B/P (MAP) Pulse Ox O2 Delivery O2 Flow Rate FiO2 02/17/25 12:32 98 18 Nasal Cannula 2.0 02/17/25 12:24 97 28 02/17/25 06:00 97.4 148/79 (102) General: Awake alert and oriented HEENT: Conjunctiva pink, Sclera clear, Mucus Membranes moist. Neck: Supple without masses and tenderness. Resp: Mild expiratory wheezing Heart: Regular Rate and rhythm, normal S1 and S2 without murmur, rub or gallop. Abdomen: Soft and non tender no organomegaly Extremities: No cyanosis,clubbing or edema. Skin: Warm and Dry. *Problems/Diagnosis: (1) Hypoxia Status: Acute Total Time Spent on D/C: > 30 Minutes Date of Service: Feb 17, 2025 Billing Provider: BARBARA NINO RES Common Visit Codes: 55540-RVR/OBS DISCH DAY >30min BARBARA NINO RES Feb 17, 2025 15:19 LASHON SINGH MD Feb 17, 2025 18:29
== END 2025-02-17 14:59 | disposition home or self-care (01) | DRG 280 ==
LOC: ER 07:03 → ED HOLD 08:39 → PCU 3S 14:04
PROVIDERS: ADMIT Internal Medicine; ATTEND Internal Medicine
PROC: 5A09357 Assistance with Respiratory Ventilation, Less than 24 Consecutive Hours, Continuous Positive Airway Pressure (ICD-10-PCS; principal; 2025-02-15)
DX: I50.31 Acute diastolic (congestive) heart failure (principal); J96.21 Acute and chronic respiratory failure with hypoxia; I21.A1 Myocardial infarction type 2; J44.1 Chronic obstructive pulmonary disease with (acute) exacerbation; E87.20 Acidosis, unspecified; G62.9 Polyneuropathy, unspecified; R73.03 Prediabetes; G89.29 Other chronic pain; Z79.899 Other long term (current) drug therapy; Z90.710 Acquired absence of both cervix and uterus; Z87.891 Personal history of nicotine dependence
CPT/HCPCS: 36415; 36600; 71045; 80048; 80053; 80061; 82803; 83036; 83605; 83735; 83880; 84145; 84484; 85018; 85025; 87040; 87081; 93005; 94640; 94660; 94760; 96365; 97161; 97530; 99291; A4615; A7015; G0378; J0456; J0696; J1650; J1938; J2919; J7040

== ENCOUNTER 2025-04-23 08:32 | Emergency (ER) | payer MEDICARE, MEDICAID ==
[~2025-04-23] VITALS: Ht 170.2 cm; Wt 68.6 kg
[~2025-04-23 08:32] MED LIST changes: +ATI1T PO; +CEFD300C3 PO; -FURO20TA4 PO; +GABA300T28; +LACT1CAP26 PO; +LORA-269 PO; +PRED10TA23 PO
[2025-04-23 08:47] VITALS: TEMP 97.5
--- NOTE | 2025-04-23 08:50 | ELECTROCARDIOGRAPH REPORT ---
[facility] Test Date: 2025-04-23 Test Time: 08:39:59 Pat Name: ASTER GUILLEN Department: EMERGENCY ROOM Room: Gender: F Spa Director: LV : 1955 Requested By: RATNA ARTEAGA Order Number: [id number] Reading MD: Dr. Derrick Kennedy Measurements Intervals Viola Rate: 92 P: 62 DC: 135 QRS: 46 QRSD: 78 T: 73 QT: 375 QTc: 464 Interpretive Statements Sinus tachycardia Atrial premature complexes Probable left atrial enlargement Electronically Signed On 04-25-2025 19:18:[address] Derrick Kennedy Please click the below link to view image of tracing.
[2025-04-23 09:06] LABS: MEAN PLATELET VOLUME 8.6 FL (7.4-10.4); RED CELL DISTRIBUTION WIDTH 16.6 % (11.5-14.5)
--- NOTE | 2025-04-23 09:17 | Physician Documentation ---
History of Present Illness ~ Chief Complaint: Shortness of Breath Stated Complaint: SOB Time Seen by MD: 09:16 Primary Medical Doctor: Danilo Olguin Mode of Arrival: POV HPI 70-year-old female, reported history of COPD, who presents with shortness of breath She tells me that she was doing okay yesterday, but then last night she began to have increasing shortness of breath. She reports increased wheezing and chest tightness. She has had an increased cough. She was not really able to sleep last night. No fevers, chills, chest pain, abdominal pain, nausea vomiting or diarrhea, leg pain or swelling. She did use her inhalers last night and did use her home oxygen which she uses as needed. She reports a history of similar episodes where she gets hospitalized, gets steroids and antibiotics. Medication Reconciliation Allergies: Coded Allergies: No Known Allergies (Unverified , 04/23/25) Scheduled Azithromycin (Azithromycin), 1 TAB PO DAILY Cefdinir (Cefdinir), 1 CAP PO Q12H Famotidine (Pepcid), 1 TAB PO DAILY Fluticasone/Umeclidin/Vilanter (Trelegy Ellipta 100-62.5-25), 1 PUFF PO DAILY, (Reported) Lactobacillus Rhamnosus (Culturelle), 1 CAP PO DAILY Nicotine 14 MG Patch* (Habitrol 14 MG Patch*), 1 PATCH TOP DAILY, (Reported) Prednisone (Prednisone), 0 PO DAILY Prednisone* (Prednisone*), 2 TAB PO DAILY Scheduled PRN Ipratropium/Albuterol Sulfate (Duoneb 2.5-0.5 Mg/3 Ml Soln), 1 VIAL NEB Q4H PRN for SOB or wheezing, (Reported) Lorazepam (Ativan), 1 TAB PO Q12H PRN PRN for anxiety Lorazepam (Ativan), 1 MG PO Q6H PRN for for anxiety/agitation Miscellaneous Medications Gabapentin (Gabapentin ER), (Reported) Past Medical History Past Medical History: Asthma, COPD, Hepatitis C, Chronic Pain, *CANCER* Past Surgical History: hysterectomy, orthopedic surgeries, tonsillectomy Patient History: Patient reports no known family medical history. Alcohol Use: Occasionally Drug Use: none Lives with: Family Lives In: Home Occupation: disabled Review of Systems Constitutional: Denies: fever Respiratory: Reports: cough, shortness of breath Cardiovascular: Denies: chest pain Physical Exam Vital Signs: Temperature: 97.5, Source: Oral, Heart Rate: 85, Respiratory Rate: 18, BP: 153/84, Pulse Oximetry: 93, Weight: 68.600 Oxygen Flow Rate: 0 Physical Exam General: This is a pleasant and nontoxic appearing older woman, not in acute respiratory distress HEENT: Atraumatic, oropharynx appears dry Heart: Regular rate and rhythm, normal-appearing peripheral perfusion Lungs: Scattered expiratory wheezes with prolonged expiratory phase, oxygen saturations in the low 90s on room air, no increased work of breathing at rest Abdomen: Soft, nondistended Extremities: Warm and well-perfused, no edema or posterior calf tenderness Neuro: Alert and oriented Psychiatric: Calm and cooperative with exam Progress Results/Orders Results/Orders Orders - RATNA ARTEAGA MD Chest,Single View (04/23/25 09:25) Monitor (04/23/25 08:48) Saline Lock (04/23/25 08:48) Oxygen (04/23/25 08:48) Completed Orders - RATNA ARTEAGA MD Chest,Single View (04/23/25 09:25) Cbc/Diff (04/23/25 08:48) BMP (04/23/25 08:48) PBNP (04/23/25 08:48) Electrocardiogram (04/23/25 08:48) Hs Troponin I W Calculations (04/23/25 08:48) Prednisone Tablet (Prednisone Tablet) (04/23/25 10:20) Azithromycin Tablet (Zithromax Tablet) (04/23/25 10:20) * Oxygen Route-Nasal Cannula * (04/23/25 10:50) Vital Signs 04/23/25 04/23/25 04/23/25 04/23/25 08:47 09:07 09:07 10:00 Temp 97.5 Pulse 90 85 81 Resp 18 18 18 18 B/P (MAP) 142/93 153/84 (107) 157/94 (115) Pulse Ox 93 93 95 O2 Flow Rate 0 0 1.0 04/23/25 04/23/25 10:49 10:57 Pulse 81 81 Resp 16 18 B/P (MAP) 157/94 (115) 137/94 Pulse Ox 96 96 O2 Flow Rate 1.0 Laboratory Tests Test 04/23/25 08:46 White Blood Count 11.9 H Red Blood Count 6.03 H Hemoglobin 16.6 H Hematocrit 50.3 H Mean Corpuscular Volume 83.5 Mean Corpuscular Hemoglobin 27.6 Mean Corpuscular Hemoglobin Concent 33.0 Red Cell Distribution Width 16.6 H Platelet Count 330 Mean Platelet Volume 8.6 Neutrophils (%) (Auto) 65.5 Lymphocytes (%) (Auto) 22.5 Monocytes (%) (Auto) 5.7 Eosinophils (%) (Auto) 5.5 Basophils (%) (Auto) 0.8 Neutrophils # (Auto) 7.8 H Lymphocytes # (Auto) 2.7 Monocytes # (Auto) 0.7 Eosinophils # (Auto) 0.7 Basophils # (Auto) 0.1 CBC Comment Sodium Level 140 Potassium Level 3.8 Chloride Level 103 Carbon Dioxide Level 26.1 Anion Gap 11 Blood Urea Nitrogen 8 Creatinine 0.64 Estimated GFR/1.73 m2 > 90 BUN/Creatinine Ratio 12.5 Glucose Level 106 H Calcium Level 9.3 Troponin I High Sensitivity 20 Pro-B-Type Natriuretic Peptide 586 H Albumin 4.0 Chemistry Comments EKG/XRAY/CT/US/VASC/MRI Chest X-Ray : Additional Comments I personally interpreted the x-ray, and it shows: No focal consolidation, no pulmonary edema, no pneumothorax Medical Decision Making Differential Dx:Considerations: Include: asthma, bronchitis, CHF, COPD, dysrhythmia, pneumonia, upper resp. infection Additional Infomation Patient presents with shortness of breath. Per her history and exam this seems most likely to be a COPD exacerbation. She has no fever other infectious symptoms. She is not hypoxic. Chest x-ray without obvious pneumonia. I did offer treatments including nebulizer treatments but she declined. She then requested to go home with steroids. She will be treated with prednisone and azithromycin. Return precautions given. Departure Time of Disposition: 10:21 Disposition: 01 HOME / SELF CARE / HOMELESS Impression: Primary Impression: Acute exacerbation of chronic obstructive airways disease Condition: Stable Discharge Instructions: Chronic Obstructive Pulmonary Disease Exacerbation Referrals: NO PRIMARY CARE PROVIDER (PCP) Prescriptions Azithromycin (Azithromycin) 250 Mg Tablet 1 TAB PO DAILY for 4 Days, #4 TAB Prov: RATNA ARTEAGA MD 04/23/25 Prednisone* (Prednisone*) 20 Mg Tablet 2 TAB PO DAILY for 4 Days, #8 TAB Prov: RATNA ARTEAGA MD 04/23/25 Education Educated: Patient Educated regarding: diagnosis, treatment, need for follow up Signature Scribe Signature: na Attestation: RATNA Vora MD Apr 23, 2025 09:17
[2025-04-23 09:28] LABS: CREATININE 0.64 MG/DL (0.40-0.90); PRO BRAIN NATRIURETIC PEPTIDE 586 PG/ML (0-125); TOTAL CARBON DIOXIDE 26.1 MMOL/L (24-32); eCRCL 78 ML/MIN; eGFR > 90 ML/MIN
--- NOTE | 2025-04-23 09:36 | RADIOLOGY REPORT ---
EXAM: DI CHEST,SINGLE VIEW HISTORY: CP COMPARISON: DI CHEST,SINGLE VIEW on DOS: 02/15/25, DI CHEST,SINGLE VIEW on DOS: 11/18/24, DI CHEST,SINGLE VIEW on DOS: 10/10/24, DI CHEST,SINGLE VIEW on DOS: 10/09/24, DI CHEST,SINGLE VIEW on DOS: 10/08/24 TECHNIQUE: Portable upright AP view of the chest was performed. FINDINGS: No pneumothorax, consolidative infiltrates, or pulmonary edema. There is peribronchial thickening centrally. The heart is not enlarged. There are postoperative changes of left distal clavicle resection. IMPRESSION: Mild reactive airways disease. The lungs are otherwise clear.
[2025-04-23] MEDS ORDERED: PRED20TA PO (10:24)
[2025-04-23] MEDS ORDERED: AZIT250T12 PO (10:24)
[2025-04-23 10:57] VITALS: BP 137/94; PULSE 81; RESP 18; O2SAT 96
== END 2025-04-23 10:59 | disposition home or self-care (01) ==
LOC: ER 08:33
DX: J44.1 Chronic obstructive pulmonary disease with (acute) exacerbation (principal); G89.29 Other chronic pain; Z86.19 Personal history of other infectious and parasitic diseases; Z88.8 Allergy status to other drugs, medicaments and biological substances; Z90.710 Acquired absence of both cervix and uterus
CPT/HCPCS: 36415; 71045; 80048; 83880; 84484; 85025; 93005; 99285; J7512